=== PATIENT | female | born 1995 | race Caucasian/White ===

== ENCOUNTER 2016-06-04 11:55 | Emergency (ER) | payer MEDICAID ==
[~2016-06-04] VITALS: Ht 165.1 cm; Wt 99.8 kg
[~2016-06-04 11:55] MED LIST: CEPH-506 PO; CEPH500C PO; CLIN300C3 PO; DOXY1TAB3 PO; FLUO20CA25; HYDR-1231 PO; IBUP-1773 PO; IBUP-1780 PO; NITR-65 PO; PNV1TABL56 PO; PRD20T PO; PREN1TAB71 PO; PRM25T PO; PROM25TA14 PO; acid reducer
[2016-06-04] MEDS ORDERED: PNV91TAB3 PO (12:25)
--- NOTE | 2016-06-04 13:49 | ED Cough/URI ---
General Chief Complaint: Cough/Cold/Flu Symptoms Stated Complaint: SORE THROAT Nursing Triage Note: STATES HAD COUGH WITH SORE THROAT. HARD TIME BREATHING . STARTED YESTERDAY. MASK PLACED ON PT. IN TRIAGE ROOM. Source: patient Exam Limitations: no limitations History of Present Illness Time seen by provider: 13:38 Initial Comments Here with report of sore throat, runny nose and nasal congestion for the last 24 hours. Patient is 28 weeks . She has taken Tylenol and that has not helped. She doesn't know what else to do because of the . Denies nausea or vomiting. Timing/Duration: yesterday, getting worse Severity/Quality: mild, moderate, dry cough Prior Episodes/Possible Cause: occasional episodes Modifying Factors: Worse With Coughing, Improves With Rest Associated Symptoms: nasal congestion, nasal drainage, shortness of breath, sore throat Allergies and Home Medications Allergies Coded Allergies: NKANo Known Allergies (Verified Allergy, Unknown, 02/08/16) Home Medications Pnv95/Ferrous Fumarate/FA 1 Each Tablet 1 EACH PO DAILY (Reported) Constitutional: see HPINo chills, No fever EENTM: nose congestion see HPI throat pain Respiratory: see HPI coughNo short of breath Cardiovascular: no symptoms reported Gastrointestinal: no symptoms reported Expected Date of Delivery: Aug 31, 2016 Skin: no symptoms reported Past Hrkwjgj-Sxgsvb-Cunoqd Hx Patient Social History Alcohol Use: Denies Use Recreational Drug Use: No Smoking Status: Never a Smoker Recent Foreign Travel: No Contact w/Someone Who Travel: No Recent Infectious Disease Expo: No Recent Hopitalizations: No Immunizations Up To Date Tetanus Booster (TDap): Less than 5yrs PED Vaccines UTD: No Date of Influenza Vaccine: Mar 29, 2016 Seasonal Allergies Seasonal Allergies: No Surgeries HX Surgeries: Yes (DENTAL, TEAR DUCT) Surgeries: Gallbladder Respiratory Hx Respiratory Disorders: No Cardiovascular Hx Cardiac Disorders: No Neurological Hx Neurological Disorders: No Reproductive System : Yes Hx Reproductive Disorders: No (Implantable control) AMBULATORY ANALYST History: IUD Genitourinary Hx Genitourinary Disorders: No Gastrointestinal Hx Gastrointestinal Disorders: No Musculoskeletal Hx Musculoskeletal Disorders: Yes (BILATERAL KNEE STRAINS) Musculoskeletal Disorders: Chronic Back Pain Endocrine Hx Endocrine Disorders: No HEENT HX ENT Disorders: No Cancer Hx Cancer: No Psychosocial Hx Psychiatric Problems: Yes Behavioral Health Disorders: Anxiety, Depression Integumentary HX Skin/Integumentary Disorder: No Blood Transfusions Hx Blood Disorders: Yes (ANEMIA--NO TRANSFUSION) Adverse Reaction to a Blood Tr: No Reviewed Nursing Assessment Reviewed/Agree w Nursing PMH: Yes Family Medical History Significant Family History: No Pertinent Family Hx Family Medial History: Patient reports no known family medical history. Physical Exam Vital Signs Vital Sign - Last 12Hours 06/04/16 12:20 Temp 98.2 Pulse 124 Resp 18 B/P 113/68 Pulse Ox 93 O2 Delivery Room Air Capillary Refill : Less Than 3 Seconds General Appearance: WD/WN no apparent distress HEENT: PERRL/EOMI pharyngeal erythemaNo tonsillar exudate, other (moderate nasal congestion bilateral with clear rhinorrhea. No tonsillar exudate) Neck: full range of motion supple Respiratory: lungs clear normal breath sounds Cardiovascular: no murmur tachycardia Neurologic/Psychiatric: alert oriented x 3 Skin: normal color warm/dry Progress/Results/Core Measures Results/Orders Lab Results Laboratory Tests Test 06/04/16 14:05 Range/Units Group A Streptococcus Screen NEGATIVE NEGATIVE Micro Results Microbiology 06/04/16 Influenza Types A,B Antigen (CHELA) - Final, Complete My Orders Orders-TAPAN CLAROS MD Rapid Strep A Screen (06/04/16 13:45) Influenza A And B Antigens (06/04/16 13:45) Vital Signs/I&O Vital Sign - Last 12Hours 06/04/16 12:20 Temp 98.2 Pulse 124 Resp 18 B/P 113/68 Pulse Ox 93 O2 Delivery Room Air Blood Pressure Mean: 83 Progress Note : Progress Note Seen and evaluated. Rapid strep and influenza screen done. These are negative. Patient declined Decadron administration. Discharged home with return precautions. Patient verbalize understanding instructions and agreement with plan. Departure Impression Impression: Primary Impression: Upper respiratory infection Qualified Code: J06.9 - Acute upper respiratory infection, unspecified Disposition: 01 HOME, SELF-CARE Condition: Stable Departure-Patient Inst. Decision time for Depature: 13:57 Referrals: [facility] (PCP/Family) Primary Care Physician Patient Instructions: Viral Upper Respiratory Infection, Adult (DC) Add. Discharge Instructions: All discharge instructions reviewed with patient and/or family. Voiced understanding. You may take Tylenol 1000 mg every 6-8 hours as needed for pain or fever. Drink plenty of fluids. You may use Afrin nasal spray or the generic, 12 hour relief, 2 sprays to each nostril twice daily for 3 days only and then stop. Do not use more than 3 days. Return for worse pain, fever, vomiting, weakness, breathing problems or concerns as needed. Follow-up with your doctor on Tuesday for recheck and further evaluation as needed. TAPAN CLAROS MD Jun 04, 2016 13:49
[2016-06-04 15:23] VITALS: BP 113/68
== END 2016-06-04 15:23 | disposition home or self-care (01) ==
LOC: EDUNIT# 11:55 → ER 11:58
DX: J06.9 Acute upper respiratory infection, unspecified (principal)
CPT/HCPCS: 87430; 87804; 99284

== ENCOUNTER 2016-06-25 08:24 | Outpatient (CLI) | payer MEDICAID ==
[~2016-06-25] VITALS: Ht 167.6 cm; Wt 104.5 kg
[~2016-06-25 08:24] MED LIST changes: +PNV91TAB3 PO
[2016-06-25 08:35] VITALS: BP 110/62
[2016-06-25 09:40] LABS: KETONES,URINE NEGATIVE (NEGATIVE); LEUKOCYTE ESTERASE ,URINE 1+ (NEGATIVE); NITRITE,URINE NEGATIVE (NEGATIVE); PH,URINE 7 (5-9); PROTEIN,URINE 2+ (NEGATIVE); UROBILINOGEN,URINE 4 MG/DL (NORMAL)
[2016-06-25 09:56] LABS: SQUAMOUS EPITHELIAL CELL,UR RARE /HPF; WBC,URINE 0-2 /HPF
[2016-06-25 10:00] LABS: BILIRUBIN,URINE 1+ (NEGATIVE)
--- NOTE | 2016-06-28 12:51 | Physician Query-Final Dx ---
ALEXIS PINEDA 06/28/16 1251: Clinic Account Progress/Dx Physician Query: Please give diagnosis Date of Service Jun 25, 2016 at 08:24 LOVE WOOD MD 06/29/16 0752: Clinic Account Progress/Dx DIAGNOSIS: Diagnosis False labor ALEXIS PINEDA Jun 28, 2016 12:51 LOVE WOOD MD Jun 29, 2016 07:52
== END 2016-06-25 10:43 | disposition home or self-care (01) ==
LOC: DELPENDDIS → WSo 08:24 → LDRP 08:24 → WSo 10:43
PROVIDERS: ATTEND Obstetrics & Gynecology
DX: O47.03 False labor before 37 completed weeks of gestation, third trimester (principal); Z3A.30 30 weeks gestation of pregnancy
CPT/HCPCS: 81000; 87088; 99214

== ENCOUNTER 2016-07-16 15:42 | Outpatient (CLI) | payer MEDICAID, OTHER ==
[~2016-07-16] VITALS: Ht 167.6 cm; Wt 61.9 kg
[2016-07-16 16:00] VITALS: BP 122/59
[2016-07-16 16:30] VITALS: BP 110/58
--- NOTE | 2016-07-20 10:43 | Physician Query-Final Dx ---
ALEXIS PINEDA 07/20/16 1043: Clinic Account Progress/Dx Physician Query: Please give diagnosis Date of Service Jul 16, 2016 at 15:42 LOVE WOOD MD 07/20/16 1833: Clinic Account Progress/Dx DIAGNOSIS: Diagnosis false labor ALEXIS PINEDA Jul 20, 2016 10:43 LOVE WOOD MD Jul 20, 2016 18:33
== END 2016-07-16 17:10 | disposition home or self-care (01) ==
LOC: WSo 15:42 → LDRP 15:43 → WSo 17:10
PROVIDERS: ATTEND Obstetrics & Gynecology
DX: O47.03 False labor before 37 completed weeks of gestation, third trimester (principal); Z3A.33 33 weeks gestation of pregnancy
CPT/HCPCS: 99213

== ENCOUNTER → 2016-08-24 | Outpatient (CLI) | payer MEDICAID ==
[2016-08-24 15:33] LABS: PROTEIN/CREATININE RATIO 0.17
== END ==
LOC: LABNPT 15:08
PROVIDERS: ATTEND Obstetrics & Gynecology
DX: O28.8 Other abnormal findings on antenatal screening of mother (principal)
CPT/HCPCS: 82570; 84156

== ENCOUNTER 2016-08-30 06:59 | Inpatient (IN) | payer MEDICAID ==
[2016-08-30] VITALS (48 sets, daily range): BP systolic 105–139; BP diastolic 54–88
[~2016-08-30] VITALS: Ht 165.1 cm; Wt 109.1 kg
[2016-08-30] MEDS ORDERED: D5 LR IV SOLUTION 1,000 ML IV ONE (07:10)
[2016-08-30] MEDS ORDERED: D5 LR IV SOLUTION 1,000 ML IV SCH (07:42)
[2016-08-30] MEDS ORDERED: OXYTOCIN/NORMAL SALINE 500 ML IV SCH ×2 (07:42→07:44)
[2016-08-30] MEDS ORDERED: MEASLES,MUMPS,RUBELLA 1 EA INJ SC ONE (07:45)
[2016-08-30] MEDS ORDERED: TETANUS,DIPTH,PERTUSS P/F (BOOSTRIX) 0.5 ML VIAL IM ONE (07:45)
[2016-08-30] MEDS ORDERED: BENZOCAINE/MENTHOL (DERMOPLAST) 56 ML CAN TP PRN (07:45)
[2016-08-30 07:51] LABS: BASOPHILS % (AUTO) 0 % (0-10); EOSINOPHILS # (AUTO) 0.1 10^3/uL (0.0-0.3); EOSINOPHILS % (AUTO) 1 % (0-10); LYMPHOCYTES # (AUTO) 1.8 X 10^3 (1.0-4.0); LYMPHOCYTES % (AUTO) 22 % (12-44); MEAN CORPUSCULAR HEMOGLOBIN 29 PG (25-34); MEAN CORPUSCULAR HGB CONC 33 G/DL (32-36); MEAN CORPUSCULAR VOLUME 88 FL (80-99); MEAN PLATELET VOLUME 11.2 FL (7.4-10.4); MONOCYTES # (AUTO) 0.5 X 10^3 (0.0-1.0); MONOCYTES % (AUTO) 6 % (0-12); NEUTROPHILS # (AUTO) 5.9 X 10^3 (1.8-7.8); NEUTROPHILS % (AUTO) 71 % (42-75); PLATELET COUNT 240 10^3/uL (130-400); RED BLOOD COUNT 3.71 10^6/uL (4.35-5.85); RED CELL DISTRIBUTION WIDTH 13.2 % (10.0-14.5); WHITE BLOOD COUNT 8.3 10^3/uL (4.3-11.0)
[2016-08-30] MEDS ORDERED: SUFENTA 0.6MCG/ML BUPIVA 0.125 100 ML ONE (07:51)
--- NOTE | 2016-08-30 07:53 | OB Bishop Score ---
Patricia Score 10 LOVE WOOD MD Aug 30, 2016 7:53 am
--- NOTE | 2016-08-30 07:56 | History & Physical ---
History and Physical this patient is a 20-year-old A1 white female with an EDC of 66 17 x 6 week ultrasound. Her has been uncomplicated. GBS negative. She does have some contractions.she denies rupture membranes or bleeding. past medical social surgical obstetric histories are per the antepartum record HEENT exam is normal Neck is supple no lymphadenopathy no thyromegaly Abdomen is gravid soft nontender nondistended Streaming show clubbing or cyanosis. There is no Homans sign. Pelvic exam reveals a cervix 4 to 5 cm dilated 80 percent plus effaced bulging bag vertex presentation 0 to -1 station. Amniotomy is performed with release of clear fluid Assessment and plan term at one day shy of 40 weeks admitted for elective induction of labor. we anticipate a vaginal delivery. 39-6/7 week elective induction of labor Allergies and Home Medications Allergies Coded Allergies: NKANo Known Allergies (Verified Allergy, Unknown, 02/08/16) Home Medications Pnv95/Ferrous Fumarate/FA 1 Each Tablet, 1 EACH PO DAILY, (Reported) LOVE WOOD MD Aug 30, 2016 7:56 am
[2016-08-30] MEDS ORDERED: BUPIVACAINE 0.25% 30 ML (SENSORCAINE) VIAL ONE (08:02)
[2016-08-30] MEDS ORDERED: LACTATED RINGERS 1,000 ML IV ONE (08:37)
[2016-08-30] MEDS ORDERED: ONDANSETRON 4 MG/2 ML (SDV) Z0FRAN IV PRN (08:45)
[2016-08-30] MEDS ORDERED: NALOXONE 0.4 MG/ML 1 ML (NARCAN) VIAL IV PRN (08:45)
[2016-08-30] MEDS ORDERED: EPIDURAL (SUFENTA 0.6MCG/ML BUPIVA 0.125%) 100 ML BAG EPI SCH (08:45)
[2016-08-30] MEDS ORDERED: LIDOCAINE/EPI 1%-1:200,000 (XYLOCAINE) 30 ML VIAL ONE (09:44)
[2016-08-30] MEDS ORDERED: MINERAL OIL CONCENTRATE 99.9% 15 ML UDC ONE (09:44)
[2016-08-30] MEDS ORDERED: METHYLERGONOVINE 0.2 MG/ML (METHERGINE) AMP ONE (12:15)
[2016-08-30] MEDS ORDERED: METHYLERGONOVINE 0.2 MG/ML (METHERGINE) AMP IM ONE (12:20)
[2016-08-30] MEDS: KETOROLAC 30 MG/ML VIAL IV SCH ×2 (14:00→21:12)
[2016-08-30] MEDS: oxyCODONE/APAP 10/325MG (PERCOCET 10) TABLET PO PRN (18:51)
[2016-08-30] MEDS: DOCUSATE SODIUM 100 MG (COLACE) CAP PO SCH (21:12)
[2016-08-31] MEDS: KETOROLAC 30 MG/ML VIAL IV SCH (02:16)
[2016-08-31 02:17] VITALS: BP 99/69
--- NOTE | 2016-08-31 05:59 | OPERATIVE REPORT ---
DATE OF SERVICE: 08/30/2016 DELIVERY NOTE The patient delivered by term spontaneous vaginal delivery a viable male with Apgars of 9 and 9 at 1 and 5 minutes respectively. Weight of 8 pounds 15 ounces. Cord arterial blood gases pending. Was performed due to intermittent decels. The was bulb suctioned on delivery of the head and again on completion of delivery. The delivery was accomplished over an intact perineum under epidural analgesia. When the cord was pulseless, the cord was doubly clamped, the father cut the cord. The baby was passed to mom's abdomen. The placenta was delivered spontaneously [place]. It was normal with a three-vessel cord. Cord bloods were obtained including mentioned ABG from the umbilical artery from the placenta. The cervix, vagina, rectum and perineum were examined and found intact. The estimated blood loss was 300 mL, but that has escalated some by this point due to some persistent uterine anatomy. She did respond to IV Pitocin, massage and eventually to Methergine. The estimated blood loss would be more than 500 mL range. Sponge and needle counts were correct on completion of the delivery. The patient tolerated the delivery well and remained in the LDR for recovery. The baby remained with the mom. Job ID: [id number] DocumentID: [id number] Dictated Date: 08/30/2016 13:21:26 Setter Induction Heating Equipment Date: 08/31/2016 01:11:37 Dictated By: LOVE WOOD MD
[2016-08-31 06:27] VITALS: BP 105/75
--- NOTE | 2016-08-31 07:47 | Progress Note-Standard ---
Standard Progress Note Progress Notes/Assess & Plan Date Seen by Provider: Aug 31, 2016 Time Seen by Provider: 07:45 Progress/Assessment & Plan this patient is without complaint. She is ambulating, voiding, tolerating by mouth well, denies chest pain, denies shortness of breath, denies nausea vomiting, denies headache and patient has good pain control. Vital Signs Date Time Temp Pulse Resp B/P (MAP) Pulse Ox O2 Delivery O2 Flow Rate FiO2 08/31/16 06:27 97.3 65 18 105/75 97 08/31/16 02:17 97.4 68 18 99/69 97 08/30/16 22:42 97.0 71 18 105/74 95 08/30/16 18:47 97.4 90 18 117/79 98 08/30/16 14:30 69 18 128/69 08/30/16 14:15 69 18 126/58 08/30/16 14:00 74 18 120/67 08/30/16 13:45 74 18 120/64 08/30/16 13:30 81 18 118/63 08/30/16 13:15 82 18 131/64 08/30/16 13:00 97.3 72 18 128/68 08/30/16 12:39 69 18 115/69 08/30/16 12:30 79 18 108/54 08/30/16 12:19 80 18 119/59 08/30/16 12:14 80 18 118/58 08/30/16 12:09 82 18 115/57 08/30/16 12:02 91 18 115/68 08/30/16 11:46 82 18 115/68 08/30/16 11:32 85 18 125/73 08/30/16 11:15 86 18 112/75 08/30/16 11:00 76 18 116/75 08/30/16 10:45 96 18 121/71 08/30/16 10:30 83 18 121/65 08/30/16 10:15 89 18 113/73 08/30/16 10:00 97.6 84 18 118/70 08/30/16 09:56 100 18 129/72 08/30/16 09:51 89 18 126/74 08/30/16 09:46 100 18 127/68 08/30/16 09:41 85 18 123/77 08/30/16 09:36 94 18 124/67 08/30/16 09:31 101 18 120/66 08/30/16 09:26 110 18 117/76 08/30/16 09:21 94 18 117/76 08/30/16 09:16 89 18 123/69 08/30/16 09:11 93 18 126/67 08/30/16 09:06 122 18 129/70 08/30/16 09:01 81 18 126/72 99 08/30/16 08:58 108 18 118/72 99 08/30/16 08:55 108 18 118/72 99 08/30/16 08:52 96 18 130/67 98 08/30/16 08:49 129 18 139/88 98 08/30/16 08:46 129 18 127/72 99 08/30/16 08:43 94 20 123/61 99 08/30/16 08:40 92 20 125/68 97 08/30/16 08:36 98.0 91 20 132/74 97 08/30/16 08:25 91 18 130/79 97 08/30/16 08:20 85 18 131/72 98 08/30/16 08:15 88 18 131/80 98 08/30/16 08:04 82 18 130/78 I & O 08/31/16 07:00 Intake Total 3400 ml Balance 3400 ml Vital signs are stable. Patient is afebrile. Abdomen is soft nontender nondistended. The uterus is firm below the umbilicus and nontender. Show no clubbing or cyanosis. There is some pretibial pitting edema that is normal. Assessment and plan post day number 1 status post term spontaneous vaginal delivery doing well. Plan is for routine convalescence care with discharge home Final Diagnosis term spontaneous vaginal delivery LOVE WOOD MD Aug 31, 2016 7:47 am
[2016-08-31 07:48] VITALS: BP 121/84
[2016-08-31] MEDS ORDERED: IBUP-1780 PO (07:48)
[2016-08-31] MEDS ORDERED: DOCU100C37 PO (07:48)
[2016-08-31] MEDS ORDERED: OXYC-465 PO (07:48)
--- NOTE | 2016-08-31 07:49 | Discharge Instructions ---
Discharge Instructions Discharge Medications New, Converted or Re-Newed RX: RX on Chart Patient Instructions Patient Instructions: as directed Return to [facility] For: as directed Activity & Diet Discharge Diet: No Restrictions Activity as Tolerated: No Orders-Post D/C & Referrals Follow Up Appt: Call to make follow up appt. for patient in 4 weeks. Activity Per routine post vaginal delivery instructions. Please call in RX to patient pharmacy. Diet as tolerated Patient may shower or tub bathe as desired. LOVE WOOD MD Aug 31, 2016 7:49 am
[2016-08-31] MEDS: DOCUSATE SODIUM 100 MG (COLACE) CAP PO SCH ×3 (08:19→20:44)
[2016-08-31] MEDS: IBUPROFEN 800 MG (MOTRIN) TAB PO SCH ×3 (08:20→20:44)
--- NOTE | 2016-08-31 11:09 | Anesthesia-Regional Post-Op ---
Regional Patient Condition Mental Status: Alert, Oriented x3 Circulation: Same as Pre-Op Headache: Absent Sensation: Full Recovery Motor Block: Absent Post Op Complications Complications None Follow Up Care/Instructions Patient Instructions None needed. Anesthesia/Patient Condition Patient is doing well, no complaints, stable vital signs, no apparent adverse anesthesia problems. No complications reported per nursing. D/C home per [facility] Criteria: EDMAR Alejandro DO Aug 31, 2016 11:09
[2016-08-31 12:05] VITALS: BP 107/72
[2016-08-31 16:40] VITALS: BP 98/60
[2016-08-31 20:00] VITALS: BP 128/82
[2016-08-31] MEDS: oxyCODONE/APAP 10/325MG (PERCOCET 10) TABLET PO PRN (20:47)
[2016-09-01 00:50] VITALS: BP 101/68
[2016-09-01] MEDS: IBUPROFEN 800 MG (MOTRIN) TAB PO SCH ×2 (02:50→09:02)
--- NOTE | 2016-09-01 07:43 | Progress Note-Standard ---
Standard Progress Note Progress Notes/Assess & Plan Date Seen by Provider: Sep 01, 2016 Time Seen by Provider: 07:35 Progress/Assessment & Plan this patient is without complaint. She is ambulating, voiding, tolerating by mouth well, denies chest pain, denies shortness of breath, denies nausea vomiting, denies headache and patient has good pain control. Vital Signs Date Time Temp Pulse Resp B/P (MAP) Pulse Ox O2 Delivery O2 Flow Rate FiO2 08/31/16 06:27 97.3 65 18 105/75 97 08/31/16 02:17 97.4 68 18 99/69 97 08/30/16 22:42 97.0 71 18 105/74 95 08/30/16 18:47 97.4 90 18 117/79 98 08/30/16 14:30 69 18 128/69 08/30/16 14:15 69 18 126/58 08/30/16 14:00 74 18 120/67 08/30/16 13:45 74 18 120/64 08/30/16 13:30 81 18 118/63 08/30/16 13:15 82 18 131/64 08/30/16 13:00 97.3 72 18 128/68 08/30/16 12:39 69 18 115/69 08/30/16 12:30 79 18 108/54 08/30/16 12:19 80 18 119/59 08/30/16 12:14 80 18 118/58 08/30/16 12:09 82 18 115/57 08/30/16 12:02 91 18 115/68 08/30/16 11:46 82 18 115/68 08/30/16 11:32 85 18 125/73 08/30/16 11:15 86 18 112/75 08/30/16 11:00 76 18 116/75 08/30/16 10:45 96 18 121/71 08/30/16 10:30 83 18 121/65 08/30/16 10:15 89 18 113/73 08/30/16 10:00 97.6 84 18 118/70 08/30/16 09:56 100 18 129/72 08/30/16 09:51 89 18 126/74 08/30/16 09:46 100 18 127/68 08/30/16 09:41 85 18 123/77 08/30/16 09:36 94 18 124/67 08/30/16 09:31 101 18 120/66 08/30/16 09:26 110 18 117/76 08/30/16 09:21 94 18 117/76 08/30/16 09:16 89 18 123/69 08/30/16 09:11 93 18 126/67 08/30/16 09:06 122 18 129/70 08/30/16 09:01 81 18 126/72 99 08/30/16 08:58 108 18 118/72 99 08/30/16 08:55 108 18 118/72 99 08/30/16 08:52 96 18 130/67 98 08/30/16 08:49 129 18 139/88 98 08/30/16 08:46 129 18 127/72 99 08/30/16 08:43 94 20 123/61 99 08/30/16 08:40 92 20 125/68 97 08/30/16 08:36 98.0 91 20 132/74 97 08/30/16 08:25 91 18 130/79 97 08/30/16 08:20 85 18 131/72 98 08/30/16 08:15 88 18 131/80 98 08/30/16 08:04 82 18 130/78 I & O 08/31/16 07:00 Intake Total 3400 ml Balance 3400 ml Vital signs are stable. Patient is afebrile. Abdomen is soft nontender nondistended. The uterus is firm below the umbilicus and nontender. Show no clubbing or cyanosis. There is some pretibial pitting edema that is normal. Assessment and plan post day number 1 status post term spontaneous vaginal delivery doing well. Plan is for routine convalescence care with discharge home September 01, 2016 Patient is without complaint. She is ambulating, voiding, tolerating it well, denies chest pain, denies shortness of breath, denies nausea vomiting, denies headache, has good pain control and is requesting discharge home. Vital Signs Date Time Temp Pulse Resp B/P (MAP) Pulse Ox O2 Delivery O2 Flow Rate FiO2 09/01/16 00:50 97.9 73 18 101/68 08/31/16 20:00 96.9 82 20 128/82 98 08/31/16 16:40 97.3 83 14 98/60 99 08/31/16 12:05 97.4 83 16 107/72 97 08/31/16 07:48 96.7 71 14 121/84 95 Vital signs are stable. Patient is afebrile. Fundus is firm below the umbilicus and nontender. Extremities show no clubbing or cyanosis. There is no Homans sign. There is some pretibial pitting edema that is normal. Assessment and plan day number 2 status post term spontaneous vaginal delivery doing well. Plan is for discharge home with follow-up in clinic Final Diagnosis term spontaneous vaginal delivery LOVE WOOD MD Sep 01, 2016 7:43 am
[2016-09-01 08:45] VITALS: BP 106/75
[2016-09-01] MEDS ORDERED: TETANUS,DIPTH,PERTUSS P/F (BOOSTRIX) 0.5 ML VIAL IM ONE (09:01)
[2016-09-01] MEDS ORDERED: MEASLES,MUMPS,RUBELLA 1 EA INJ ONE (09:01)
[2016-09-01] MEDS: DOCUSATE SODIUM 100 MG (COLACE) CAP PO SCH (09:02)
[2016-09-01 11:45] VITALS: BP 106/75
== END 2016-09-01 11:45 | disposition home or self-care (01) | DRG 775 ==
LOC: LDRP 06:59
PROVIDERS: ADMIT Obstetrics & Gynecology; ATTEND Obstetrics & Gynecology
PROC: 10E0XZZ Delivery of Products of Conception, External Approach (ICD-10-PCS; principal; 2016-08-30)
PROC: 3E033GC Introduction of Other Therapeutic Substance into Peripheral Vein, Percutaneous Approach (ICD-10-PCS; 2016-08-30)
DX: O76 Abnormality in fetal heart rate and rhythm complicating labor and delivery (principal); O75.89 Other specified complications of labor and delivery; Z37.0 Single live birth; Z3A.39 39 weeks gestation of pregnancy; Z23 Encounter for immunization
CPT/HCPCS: 36415; 85025; 86850; 86900; 86901; 90707; 90715

== ENCOUNTER 2016-09-03 11:47 | Emergency (ER) | payer MEDICAID ==
[~2016-09-03] VITALS: Ht 165.1 cm; Wt 104.3 kg
[~2016-09-03 11:47] MED LIST changes: +DOCU100C37 PO; +OXYC-465 PO
--- NOTE | 2016-09-03 12:34 | ED General ---
General Chief Complaint: General Problems/Pain Stated Complaint: CHILLS BACK PAIN Nursing Triage Note: PT IS 4 DAYS POST OP, PT STATES EPIDURAL DID NOT WORK VERY WELL, PT STATES HAS DIZZINESS, CONTI CHILLS STIFF BACK THIS AM. PT STATES HAD HEMORRHAGE AFTER HAVING BABY. Nursing Sepsis Screen: No Definite Risk Source of Information: Patient, Family (mom) Exam Limitations: No Limitations History of Present Illness Time Seen by Provider: 12:28 Initial Comments Patient is a with one miscarriage and 3 living children. Delivered by vaginal 4 days ago on August 30. This morning she started having pain in her lower back as well as feeling hot and cool same time with chills and her mother says she said felt hot to the touch. She says she was getting up to go the bathroom and her legs felt very weak and wobbly after she went back to lay down her back went stiff and she had a hard time getting up and moving again until coming in to the ER. She took the oxycodone and ibuprofen pain meds that she was prescribed for pain which helped a little prior to coming to the ER. She denies nausea or rash. She says her lochia is heavy initially after delivery but is now light the past 2 days and intermittent. She states that the was uneventful with the delivery was a problem with her epidural and she equates this to causing her to have a hemorrhage. She states that Dr. Chilel performed a manual extraction and pulse and clots out of her uterus. Has not needed a blood patch. She has a history of migraines and today she has a headache on the left side that is throbbing. Allergies and Home Medications Allergies Coded Allergies: MATTIEANo Known Allergies (Verified Allergy, Unknown, 02/08/16) Home Medications Cyclobenzaprine HCl 10 Mg Tablet, 10 MG PO Q8H PRN for BACK PAIN, #14 Ref 0 Prescribed by: SU FARRAR on 09/03/16 1343 Docusate Sodium 100 Mg Capsule, 100 MG PO BID, #60 Prescribed by: LOVE SANDERS on 08/31/16 0748 Ibuprofen 800 Mg Tablet, 800 MG PO Q6H, #60 Prescribed by: LOVE SANDERS on 08/31/16 0748 Oxycodone HCl/Acetaminophen 1 Each Tablet, 1-2 TAB PO Q6H PRN for PAIN-MILD TO MODERATE, #60 Prescribed by: LOVE SANDERS on 08/31/16 0748 Pnv95/Ferrous Fumarate/FA 1 Each Tablet, 1 EACH PO DAILY, (Reported) Polyethylene Glycol 3350 17 Gm Powd.pack, 17 GM PO BID PRN for CONSTIPATION-1ST LINE for 10 Days, #1 Ref 0 Prescribed by: SU FARRAR on 09/03/16 1343 Sulfamethoxazole/Trimethoprim 1 Each Tablet, 1 EACH PO BID for 7 Days, #14 Ref 0 Prescribed by: SU FARRAR on 09/03/16 1343 Constitutional: chills, No diaphoresis, dizziness, malaise, weakness EENTM: No blurred vision, No double vision, No nose congestion, No nose pain Respiratory: No cough, No short of breath Cardiovascular: No chest pain, No edema, No palpitations Gastrointestinal: abdominal pain (Suprapubic is tender ), No constipation, No diarrhea, No jaundice, No loss of appetite, No nausea, No vomiting Genitourinary: No dysuria, No frequency Musculoskeletal: No joint pain, No muscle pain, muscle stiffness Skin: other (bruising of her lower abdomen from delivery) Psychiatric/Neurological: Headache Past Ptjdcho-Cisfrp-Wultlr Hx Patient Social History Alcohol Use: Denies Use Recreational Drug Use: No Smoking Status: Never a Smoker Recent Foreign Travel: No Contact w/Someone Who Travel: No Recent Infectious Disease Expo: No Recent Hopitalizations: No Immunizations Up To Date Tetanus Booster (TDap): Less than 5yrs PED Vaccines UTD: No Date of Influenza Vaccine: Mar 29, 2016 Seasonal Allergies Seasonal Allergies: Yes Surgeries HX Surgeries: Yes (DENTAL, TEAR DUCT) Surgeries: Gallbladder Respiratory Hx Respiratory Disorders: No Cardiovascular Hx Cardiac Disorders: No Neurological Hx Neurological Disorders: No Reproductive System Hx Reproductive Disorders: No (Implantable control) Sexually Transmitted Disease: Yes (Hx of chlamydia ) HIV/AIDS: No P[employer]ED P[employer] History: IUD Genitourinary Hx Genitourinary Disorders: No Gastrointestinal Hx Gastrointestinal Disorders: No Musculoskeletal Hx Musculoskeletal Disorders: Yes (BILATERAL KNEE STRAINS) Musculoskeletal Disorders: Chronic Back Pain Endocrine Hx Endocrine Disorders: No HEENT HX ENT Disorders: No Cancer Hx Cancer: No Psychosocial Hx Psychiatric Problems: Yes Behavioral Health Disorders: Anxiety, Depression Integumentary HX Skin/Integumentary Disorder: No Blood Transfusions Hx Blood Disorders: Yes (ANEMIA--NO TRANSFUSION) Adverse Reaction to a Blood Tr: No Family Medical History Significant Family History: No Pertinent Family Hx Family Medial History: Asthma 19 MOTHER FH: sleep apnea 19 FATHER Hypertension 19 FATHER Physical Exam-Suspected Sepsis Physical Exam Vital Signs Vital Sign - Last 12Hours 09/03/16 11:55 Temp 98.2 Pulse 119 Resp 18 B/P (MAP) 141/93 Pulse Ox 97 Capillary Refill : Less Than 3 Seconds Blood Pressure Mean: 109 General Appearance: WD/WN, Mild Distress Eyes: Bilateral Eye EOMI, Bilateral Eye Normal Inspection HEENT: Pharynx Normal, No Tonsillar Enlargement Neck: Full Range of Motion, Normal Inspection, Non Tender, Supple Respiratory: Lungs Clear, Normal Breath Sounds, No Accessory Muscle Use, No Respiratory Distress Cardiovascular: Regular Rate, Rhythm, No Edema Gastrointestinal: No Mass, No Rebound, No Splenomegaly, Tenderness (suprapubic) , Other (hypoactive BS; Uterus palpable at the level of the Pubic bone) Back: Normal Inspection, No CVA Tenderness, No Vertebral Tenderness, Other (no erythema or swelling from site of epidural insertion. ) Extremity: Normal Capillary Refill, Non Tender, No Calf Tenderness, No Pedal Edema Neurologic/Psychiatric: Alert, Oriented x3, No Motor/Sensory Deficits, Other ( DTRs Dominick Patellar intact) Skin: normal color, warm/dry Progress/Results/Core Measures Suspected Sepsis Recent Fever Within 48 Hours: No Infection Criteria Present: None New/Unexplained Altered Menta: No Sepsis Screen: No Definite Risk Sepsis Diagnosis: SIRS Temperature:98.2 Pulse: 119 Respiratory Rate: 18 Laboratory Tests 09/03/16 12:05: White Blood Count 8.2 Blood Pressure 141 /93 Mean: 109 Laboratory Tests 09/03/16 12:05: Creatinine 0.68, Platelet Count 242, Total Bilirubin 0.4 Results/Orders Lab Results Laboratory Tests Test 09/03/16 12:05 09/03/16 13:05 Range/Units White Blood Count 8.2 4.3-11.0 10^3/uL Red Blood Count 3.28 L 4.35-5.85 10^6/uL Hemoglobin 9.5 L 11.5-16.0 G/DL Hematocrit 29 L 35-52 % Mean Corpuscular Volume 89 80-99 FL Mean Corpuscular Hemoglobin 29 25-34 PG Mean Corpuscular Hemoglobin Concent 32 32-36 G/DL Red Cell Distribution Width 12.8 10.0-14.5 % Platelet Count 242 130-400 10^3/uL Mean Platelet Volume 10.2 7.4-10.4 FL Neutrophils (%) (Auto) 86 H 42-75 % Lymphocytes (%) (Auto) 7 L 12-44 % Monocytes (%) (Auto) 6 0-12 % Eosinophils (%) (Auto) 2 0-10 % Basophils (%) (Auto) 0 0-10 % Neutrophils # (Auto) 7.0 1.8-7.8 X 10^3 Lymphocytes # (Auto) 0.5 L 1.0-4.0 X 10^3 Monocytes # (Auto) 0.5 0.0-1.0 X 10^3 Eosinophils # (Auto) 0.2 0.0-0.3 10^3/uL Basophils # (Auto) 0.0 0.0-0.1 10^3/uL Neutrophils % (Manual) 80 % Lymphocytes % (Manual) 11 % Monocytes % (Manual) 3 % Eosinophils % (Manual) 2 % Basophils % (Manual) 0 % Band Neutrophils 4 % Blood Morphology Comment NORMAL Sodium Level 138 135-145 MMOL/L Potassium Level 3.5 L 3.6-5.0 MMOL/L Chloride Level 105 98-107 MMOL/L Carbon Dioxide Level 21 21-32 MMOL/L Anion Gap 12 5-14 MMOL/L Blood Urea Nitrogen 5 L 7-18 MG/DL Creatinine 0.68 0.60-1.30 MG/DL Estimat Glomerular Filtration Rate > 60 BUN/Creatinine Ratio 7 Glucose Level 113 H 70-105 MG/DL Calcium Level 8.7 8.5-10.1 MG/DL Total Bilirubin 0.4 0.1-1.0 MG/DL Aspartate Amino Transf (AST/SGOT) 19 5-34 U/L Alanine Aminotransferase (ALT/SGPT) 22 0-55 U/L Alkaline Phosphatase 154 H 40-136 U/L Total Protein 6.0 L 6.4-8.2 G/DL Albumin 3.0 L 3.2-4.5 G/DL Urine Color RED H Urine Clarity BLOODY H Urine pH 6.5 5-9 Urine Specific [place] 1.015 L 1.016-1.022 Urine Protein 3+ H NEGATIVE Urine Glucose (UA) NEGATIVE NEGATIVE Urine Ketones NEGATIVE NEGATIVE Urine Nitrite NEGATIVE NEGATIVE Urine Bilirubin NEGATIVE NEGATIVE Urine Urobilinogen 1 NORMAL MG/DL Urine Leukocyte Esterase 3+ H NEGATIVE Urine RBC (Auto) 5+ H NEGATIVE Urine RBC TNTC H /HPF Urine WBC TNTC H /HPF Urine Squamous Epithelial Cells 10-25 H /HPF Urine Crystals NONE /LPF Urine Bacteria MODERATE H /HPF Urine Casts NONE /LPF Urine Mucus NEGATIVE /LPF Urine Culture Indicated YES My Orders Orders - SU FARRAR Cbc With Automated Diff (09/03/16 12:34) Comprehensive Metabolic Panel (09/03/16 12:34) Ua Culture If Indicated (09/03/16 12:34) Lactic Acid Analyzer (09/03/16 12:37) Blood Culture (09/03/16 12:37) Manual Differential (09/03/16 12:05) Urine Culture (09/03/16 13:05) Vital Signs/I&O Vital Sign - Last 12Hours 09/03/16 11:55 Temp 98.2 Pulse 119 Resp 18 B/P (MAP) 141/93 Pulse Ox 97 Capillary Refill : Less Than 3 Seconds Blood Pressure Mean: 109 Progress Note #1: Time: 12:46 Progress Note Patient reports with a subjective history of fever back tenderness and malaise and weakness 4 days after a vaginal delivery for which she had to have annual extraction of blood clots secondary to hemorrhage. Her hemoglobin reviewed at the time of her discharge was 10.8. She denies any other constitutional symptoms however his could be related to however unlikely her epidural site or with her hypoactive bowel sounds could also be related to constipation and her use of oxycodone. We'll draw a lactate and basic labs and go from there Progress Note #2: Time: 14:08 Progress Note Hemoglobin only dropped about point and this can be explained by her hemorrhage and heavy lochia for the first 2-3 days. Urinalysis is questionable for UTI so sent for culture as well as blood cultures but allow her to go home under close supervision of her parents with antibiotics and symptomatically treatment. She should follow-up next with her primary care/OB. She is given strict return to care instructions. Departure Impression Impression: Primary Impression: UTI (urinary tract infection) Qualified Codes: N30.01 - Acute cystitis with hematuria Additional Impression: Back stiffness Disposition: HOME, SELF-CARE Condition: Improved Departure-Patient Inst. Decision time for Depature: 13:39 Referrals: [facility] (PCP/Family) Primary Care Physician Patient Instructions: Urinary Tract Infection, Adult (DC) Add. Discharge Instructions: You have been started on a 5 day course of bactrim to be taken twice daily with something to eat to treat a possible urinary tract infection. Follow-up with Dr. Chilel next week and you can call up after Tuesday to get the culture results. Your back stiffness will best be treated at this point with heat and Flexeril every 8 hours as needed for stiffness as well as get some rest. If careful using the Flexeril along with opiates as this may cause you to be very drowsy. While you're on these medicines you should consider pumping and dumping your breastmilk. If you have new symptoms such as high fevers, nausea or vomiting, inability to tolerate the medicines or worsening of your current symptoms you should return to the ER or follow up with your primary care physician. All discharge instructions reviewed with patient and/or family. Voiced understanding. Scripts Polyethylene Glycol 3350 (Miralax) 17 Gm Powd.pack 17 GM PO BID Y for CONSTIPATION-1ST LINE for 10 Days, #1 EACH 0 Refills Prov: SU FARRAR 09/03/16 Cyclobenzaprine HCl (Cyclobenzaprine HCl) 10 Mg Tablet 10 MG PO Q8H Y for BACK PAIN, #14 TAB 0 Refills Prov: SU FARRAR 09/03/16 Sulfamethoxazole/Trimethoprim (Bactrim Ds Tablet) 1 Each Tablet 1 EACH PO BID for 7 Days, #14 TAB 0 Refills Prov: SU FARRRA 09/03/16 Copy Copies To 1: LOVE CHILEL MD Copies To 2: MARGI EDWARD TITUS J Sep 03, 2016 12:34
[2016-09-03 12:40] LABS: BASOPHILS % (AUTO) 0 % (0-10); EOSINOPHILS # (AUTO) 0.2 10^3/uL (0.0-0.3); EOSINOPHILS % (AUTO) 2 % (0-10); LYMPHOCYTES # (AUTO) 0.5 X 10^3 (1.0-4.0); LYMPHOCYTES % (AUTO) 7 % (12-44); MEAN CORPUSCULAR HEMOGLOBIN 29 PG (25-34); MEAN CORPUSCULAR HGB CONC 32 G/DL (32-36); MEAN CORPUSCULAR VOLUME 89 FL (80-99); MEAN PLATELET VOLUME 10.2 FL (7.4-10.4); MONOCYTES # (AUTO) 0.5 X 10^3 (0.0-1.0); MONOCYTES % (AUTO) 6 % (0-12); NEUTROPHILS % (AUTO) 86 % (42-75); PLATELET COUNT 242 10^3/uL (130-400); RED BLOOD COUNT 3.28 10^6/uL (4.35-5.85); RED CELL DISTRIBUTION WIDTH 12.8 % (10.0-14.5); WHITE BLOOD COUNT 8.2 10^3/uL (4.3-11.0)
[2016-09-03 12:55] LABS: ALANINE AMINOTRANSFERASE 22 U/L (0-55); ANION GAP 12 MMOL/L (5-14); ASPARTATE AMINO TRANSFERASE 19 U/L (5-34); BILIRUBIN,TOTAL 0.4 MG/DL (0.1-1.0); BLOOD UREA NITROGEN 5 MG/DL (7-18); BUN/CREATININE RATIO 7; CALCIUM 8.7 MG/DL (8.5-10.1); CARBON DIOXIDE 21 MMOL/L (21-32); CHLORIDE 105 MMOL/L (98-107); CREATININE SERUM 0.68 MG/DL (0.60-1.30); GFR ESTIMATED > 60; GLUCOSE 113 MG/DL (70-105); POTASSIUM 3.5 MMOL/L (3.6-5.0); SODIUM 138 MMOL/L (135-145)
[2016-09-03 13:04] LABS: BAND NEUTROPHILS 4 %; BASOPHILS % (MANUAL) 0 %; EOSINOPHILS % (MANUAL) 2 %; LYMPHOCYTES % (MANUAL) 11 %; NEUTROPHILS % (MANUAL) 80 %
[2016-09-03 13:17] LABS: BILIRUBIN,URINE NEGATIVE (NEGATIVE); KETONES,URINE NEGATIVE (NEGATIVE); LEUKOCYTE ESTERASE ,URINE 3+ (NEGATIVE); NITRITE,URINE NEGATIVE (NEGATIVE); PH,URINE 6.5 (5-9); PROTEIN,URINE 3+ (NEGATIVE); UROBILINOGEN,URINE 1 MG/DL (NORMAL)
[2016-09-03 13:25] LABS: WBC,URINE TNTC /HPF
[2016-09-03] MEDS ORDERED: SULF1TAB35 PO (13:43)
[2016-09-03] MEDS ORDERED: CYCL10TA9 PO (13:43)
[2016-09-03] MEDS ORDERED: POLY17PO6 PO (13:43)
[2016-09-03 14:11] VITALS: BP 136/86
== END 2016-09-03 14:10 | disposition home or self-care (01) ==
LOC: EDUNIT# 11:47 → ER 11:51
DX: O86.20 Urinary tract infection following delivery, unspecified (principal); O90.89 Other complications of the puerperium, not elsewhere classified; M53.80 Other specified dorsopathies, site unspecified; R68.83 Chills (without fever)
CPT/HCPCS: 36415; 80053; 81000; 83605; 85007; 85027; 87040; 87088; 99284

== ENCOUNTER 2017-04-07 16:02 | Emergency (ER) | payer MEDICAID, OTHER ==
[~2017-04-07 16:02] MED LIST changes: +CYCL10TA9 PO; +POLY17PO6 PO; +SULF1TAB35 PO
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
== END 2017-04-07 18:16 | disposition left against medical advice (07) ==
LOC: EDUNIT# 16:02 → ER 16:04
DX: R50.9 Fever, unspecified (principal)

== ENCOUNTER 2017-06-21 19:06 | Emergency (ER) | payer MEDICAID ==
[~2017-06-21] VITALS: Ht 170.2 cm; Wt 100.0 kg
--- NOTE | 2017-06-21 20:42 | ED General ---
General Chief Complaint: General Problems/Pain Stated Complaint: POSS PREG, OFF AND ON PERIODS Nursing Triage Note: pt reports she has had irregular periods for the last several months. she states she took a home test a couple of weeks ago and it was positive. she also states she has been having intermittent abd cramping. she denies vaginal bleeding at this time, or any urinary symptoms. Nursing Sepsis Screen: No Definite Risk Source of Information: Patient Exam Limitations: No Limitations History of Present Illness Date Seen by Provider: Jun 21, 2017 Time Seen by Provider: 20:40 Initial Comments To ER with c/o irregular periods for several months. C/o suprapubic abdominal cramping for a few weeks. Took a home pregnanacy test and it was positive. No vaginal bleeding for a few weeks. Timing/Duration: Intermittent Severity: Moderate Allergies and Home Medications Allergies Coded Allergies: MATTIEANo Known Allergies (Verified Allergy, Unknown, 02/08/16) Home Medications Cephalexin 500 Mg Capsule, 500 MG PO BID Prescribed by: CAMILA SALGADO on 06/21/17 2220 Cyclobenzaprine HCl 10 Mg Tablet, 10 MG PO Q8H PRN for BACK PAIN Prescribed by: SU FARRAR on 09/03/16 1343 Docusate Sodium 100 Mg Capsule, 100 MG PO BID Prescribed by: LOVE SANDERS on 08/31/16 0748 Ibuprofen 800 Mg Tablet, 800 MG PO Q6H Prescribed by: LOVE SANDERS on 08/31/16 0748 Oxycodone HCl/Acetaminophen 1 Each Tablet, 1-2 TAB PO Q6H PRN for PAIN-MILD TO MODERATE Prescribed by: LOVE SANDERS on 08/31/16 0748 Pnv95/Ferrous Fumarate/FA 1 Each Tablet, 1 EACH PO DAILY, (Reported) Polyethylene Glycol 3350 17 Gm Powd.pack, 17 GM PO BID PRN for CONSTIPATION-1ST LINE Prescribed by: SU FARRAR on 09/03/16 1343 Sulfamethoxazole/Trimethoprim 1 Each Tablet, 1 EACH PO BID Prescribed by: SU FARRAR on 09/03/16 1343 Patient Home Medication List Home Medication List Reviewed: Yes Constitutional: see HPI EENTM: see HPI Respiratory: no symptoms reported Cardiovascular: no symptoms reported Genitourinary: no symptoms reported Musculoskeletal: no symptoms reported Skin: no symptoms reported Psychiatric/Neurological: No Symptoms Reported Past [id number]-[id number]-Mqmfxn Hx Patient Social History Alcohol Use: Denies Use Recreational Drug Use: No Smoking Status: Never a Smoker 2nd Hand Smoke Exposure: No Recent Foreign Travel: No Contact w/Someone Who Travel: No Recent Infectious Disease Expo: No Recent Hopitalizations: No Immunizations Up To Date Tetanus Booster (TDap): Less than 5yrs PED Vaccines UTD: No Date of Influenza Vaccine: Mar 29, 2016 Seasonal Allergies Seasonal Allergies: Yes Surgeries History of Surgeries: Yes Surgeries: Gallbladder Respiratory History of Respiratory Disorde: No Cardiovascular History of Cardiac Disorders: No Neurological History of Neurological Disord: No Reproductive System Hx Reproductive Disorders: No (Implantable control) Sexually Transmitted Disease: Yes (Hx of chlamydia ) HIV/AIDS: No CARBONATOR History: IUD Genitourinary History of Genitourinary Disor: No Gastrointestinal History of Gastrointestinal Di: No Musculoskeletal History of Musculoskeletal Dis: No Musculoskeletal Disorders: Chronic Back Pain Endocrine History of Endocrine Disorders: No HEENT History of HEENT Disorders: No Cancer History of Cancer: No Psychosocial History of Psychiatric Problem: Yes Behavioral Health Disorders: Anxiety, Depression Integumentary History of Skin or Integumenta: No Blood Transfusions History of Blood Disorders: Yes (anemia ) Adverse Reaction to a Blood Tr: No Family Medical History Significant Family History: No Pertinent Family Hx Family Medial History: Asthma 19 MOTHER FH: sleep apnea 19 FATHER Hypertension 19 FATHER Physical Exam Vital Signs Vital Signs - First Documented 06/21/17 19:20 Temp 97.5 Pulse 74 Resp 16 B/P (MAP) 122/84 (97) Pulse Ox 99 Capillary Refill : Less Than 3 Seconds General Appearance: No Apparent Distress, WD/WN Eyes: Bilateral Eye Normal Inspection, Bilateral Eye PERRL, Bilateral Eye EOMI HEENT: PERRL/EOMI, TMs Normal Neck: Full Range of Motion, Normal Inspection Respiratory: No Accessory Muscle Use, No Respiratory Distress Cardiovascular: Regular Rate, Rhythm, Normal Peripheral Pulses Gastrointestinal: Normal Bowel Sounds, Non Tender, Soft Extremity: Normal Capillary Refill, Normal Inspection Neurologic/Psychiatric: Alert, Oriented x3, No Motor/Sensory Deficits Skin: Normal Color, Warm/Dry Progress/Results/Core Measures Suspected Sepsis Recent Fever Within 48 Hours: No Infection Criteria Present: None New/Unexplained Altered Menta: No Sepsis Screen: No Definite Risk Sepsis Diagnosis: SIRS Temperature:97.5 Pulse: 74 Respiratory Rate: 16 Blood Pressure 122 /84 Mean: 97 Results/Orders Lab Results Laboratory Tests Test 06/21/17 19:35 06/21/17 21:00 Range/Units Human Chorionic Gonadotropin, Quant [id number] H <5 MIU/ML Urine Color YELLOW Urine Clarity VERY CLOUDY H Urine pH 6 5-9 Urine Specific [place] 1.020 1.016-1.022 Urine Protein 2+ H NEGATIVE Urine Glucose (UA) NEGATIVE NEGATIVE Urine Ketones NEGATIVE NEGATIVE Urine Nitrite NEGATIVE NEGATIVE Urine Bilirubin 1+ H NEGATIVE Urine Urobilinogen 4 H NORMAL MG/DL Urine Leukocyte Esterase 3+ H NEGATIVE Urine RBC (Auto) 1+ H NEGATIVE Urine RBC 0-2 /HPF Urine WBC 10-25 H /HPF Urine Squamous Epithelial Cells >50 H /HPF Urine Crystals NONE /LPF Urine Bacteria LARGE H /HPF Urine Casts NONE /LPF Urine Mucus LARGE H /LPF Urine Culture Indicated YES My Orders Orders - CAMILA SALGADO NEUROPHYSIOLOGY TECH Hcg,Quantitative (06/21/17 19:24) Ua Culture If Indicated (06/21/17 20:39) Urine Culture (06/21/17 21:00) Cephalexin Capsule (Keflex Capsule) (06/21/17 21:45) Us Ob Single Fetus<14 [id number] (06/21/17 20:39) Medications Given in ED Current Medications Medications Dose Ordered Sig/Chucky Route Start Time Stop Time Status Last Admin Dose Admin Cephalexin HCl 250 mg ONCE ONCE PO 06/21/17 21:45 06/21/17 21:46 DC 06/21/17 22:30 250 MG Vital Signs/I&O Vital Sign - Last 12Hours 06/21/17 19:20 Temp 97.5 Pulse 74 Resp 16 B/P (MAP) 122/84 (97) Pulse Ox 99 Capillary Refill : Less Than 3 Seconds Blood Pressure Mean: 97 Departure Impression Impression: Primary Impression: Intrauterine Additional Impression: UTI (urinary tract infection) Disposition: 01 HOME, SELF-CARE Condition: Stable/Unchanged Departure-Patient Inst. Decision time for Depature: 22:20 Referrals: [facility] (PCP/Family) Primary Care Physician Patient Instructions: How to Plan and Prepare for a Healthy , Urinary Tract Infection, Adult (DC) Add. Discharge Instructions: Call an [employer] KNITTER HELPER tomorrow to become established and to follow you throughout the rest of your . Take medications as directed and drink plenty of clear liquids. Return back to the emergency room for any concerns as needed All discharge instructions reviewed with patient and/or family. Voiced understanding. Scripts Cephalexin (Keflex) 500 Mg Capsule 500 MG PO BID for 7 Days, #14 CAP Prov: CAMILA SALGADO APRN 06/21/17 CAMILA SALGADO APRN Jun 21, 2017 20:42
[2017-06-21 21:13] LABS: CLARITY,URINE VERY CLOUDY; COLOR,URINE YELLOW; GLUCOSE, URINE (UA) NEGATIVE (NEGATIVE); KETONES,URINE NEGATIVE (NEGATIVE); LEUKOCYTE ESTERASE ,URINE 3+ (NEGATIVE); NITRITE,URINE NEGATIVE (NEGATIVE); PH,URINE 6 (5-9); PROTEIN,URINE 2+ (NEGATIVE); UROBILINOGEN,URINE 4 MG/DL (NORMAL)
[2017-06-21 21:22] LABS: BILIRUBIN,URINE 1+ (NEGATIVE)
[2017-06-21 21:25] LABS: BACTERIA,URINE LARGE /HPF; RBC,URINE 0-2 /HPF; SQUAMOUS EPITHELIAL CELL,UR >50 /HPF
[2017-06-21] MEDS ORDERED: CEPHALEXIN 250 MG (KEFLEX) CAP PO ONE (21:45)
[2017-06-21] MEDS ORDERED: CEPH-507 PO (22:20)
[2017-06-21 22:25] VITALS: BP 122/84
--- NOTE | 2017-06-22 08:51 | Diagnostic Imaging Report ---
PROCEDURE: US OB SINGLE FETUS <14 WKS. TECHNIQUE: Multiple real-time grayscale images were obtained over the gravid uterus in various projections. INDICATION: Pelvic cramping. FINDINGS: There is an intrauterine gestational sac containing a pole. The crown-rump length measurement is 6.9 cm consistent with 13 weeks 2 days gestation. heart rate was recorded at 179 beats per minute. Placenta is developing anteriorly. No perigestational sac hemorrhage is identified. The ovaries were not visualized. IMPRESSION: Single live IUP 13 weeks 2 days gestational age with an estimated date of confinement sonographically of 12/25/2017. No complicating features are detected. Dictated by: Dictated on workstation # [id number]
== END 2017-06-21 22:25 | disposition home or self-care (01) ==
LOC: EDUNIT# 19:06 → ER 19:07
DX: O23.40 Unspecified infection of urinary tract in pregnancy, unspecified trimester (principal); O99.341 Other mental disorders complicating pregnancy, first trimester; F41.9 Anxiety disorder, unspecified; F32.9 Major depressive disorder, single episode, unspecified; Z88.1 Allergy status to other antibiotic agents; Z86.19 Personal history of other infectious and parasitic diseases; Z97.5 Presence of (intrauterine) contraceptive device; Z3A.13 13 weeks gestation of pregnancy
CPT/HCPCS: 36415; 76801; 81000; 84702; 87088

== ENCOUNTER 2017-10-17 13:50 | Outpatient (CLI) | payer SELFPAY ==
[~2017-10-17] VITALS: Ht 168.9 cm; Wt 105.3 kg
[2017-10-17 13:30] VITALS: BP 119/68
[~2017-10-17 13:50] MED LIST changes: +CEPH-507 PO
[2017-10-17] MEDS ORDERED: PNV11TAB5 PO (14:19)
[2017-10-17 14:45] VITALS: BP 119/68
--- NOTE | 2017-10-18 15:08 | Physician Query-Final Dx ---
ALEXIS PINEDA 10/18/17 1508: Clinic Account Progress/Dx Physician Query: Please give diagnosis Date of Service Oct 17, 2017 at 13:50 LOVE WOOD MD 10/19/17 0748: Clinic Account Progress/Dx DIAGNOSIS: Diagnosis false labor ALEXIS PINEDA Oct 18, 2017 15:08 LOVE WOOD MD Oct 19, 2017 07:48
== END 2017-10-17 14:45 | disposition home or self-care (01) ==
LOC: WSo 13:50 → LDRP 13:51 → WSo 14:45
PROVIDERS: ATTEND Obstetrics & Gynecology
DX: O47.03 False labor before 37 completed weeks of gestation, third trimester (principal); Z3A.30 30 weeks gestation of pregnancy
CPT/HCPCS: 99213

== ENCOUNTER 2017-12-06 12:35 | Inpatient (IN) | payer MEDICAID ==
[2017-12-06] VITALS (27 sets, daily range): BP systolic 96–121; BP diastolic 56–76
[~2017-12-06] VITALS: Ht 168.9 cm; Wt 105.3 kg
[~2017-12-06 12:35] MED LIST changes: +PNV11TAB5 PO
[2017-12-06] MEDS ORDERED: LACTATED RINGERS 1,000 ML IV ONE (13:30)
[2017-12-06] MEDS ORDERED: LOPERAMIDE 2 MG (IMODIUM) CAP PO ONE (13:30)
[2017-12-06] MEDS ORDERED: ONDANSETRON 4 MG/2 ML (SDV) Z0FRAN IVP NR (15:00)
[2017-12-06] MEDS ORDERED: AMPICILLIN FOR IV USE 2,000 MG in NS (IVPB) 50 ML IV NR (15:00)
[2017-12-06 15:24] LABS: BASOPHILS % (AUTO) 0 % (0-10); EOSINOPHILS % (AUTO) 0 % (0-10); HEMATOCRIT 33 % (35-52); HEMOGLOBIN 10.7 G/DL (11.5-16.0); LYMPHOCYTES # (AUTO) 0.7 X 10^3 (1.0-4.0); LYMPHOCYTES % (AUTO) 9 % (12-44); MEAN CORPUSCULAR HEMOGLOBIN 29 PG (25-34); MEAN CORPUSCULAR HGB CONC 33 G/DL (32-36); MEAN CORPUSCULAR VOLUME 87 FL (80-99); MEAN PLATELET VOLUME 11.3 FL (7.4-10.4); MONOCYTES # (AUTO) 0.4 X 10^3 (0.0-1.0); MONOCYTES % (AUTO) 5 % (0-12); NEUTROPHILS # (AUTO) 6.6 X 10^3 (1.8-7.8); NEUTROPHILS % (AUTO) 85 % (42-75); PLATELET COUNT 313 10^3/uL (130-400); RED BLOOD COUNT 3.75 10^6/uL (4.35-5.85); RED CELL DISTRIBUTION WIDTH 13.5 % (10.0-14.5); WHITE BLOOD COUNT 7.7 10^3/uL (4.3-11.0)
[2017-12-06] MEDS ORDERED: BUTORPHANOL INJ 2 MG/ML (STADOL) VIAL IV ONE (16:15)
[2017-12-06] MEDS ORDERED: D5 LR IV SOLUTION 1,000 ML IV SCH (16:15)
[2017-12-06] MEDS ORDERED: BUTORPHANOL INJ 2 MG/ML (STADOL) VIAL ONE (16:16)
[2017-12-06] MEDS: LACTATED RINGERS 1,000 ML IV SCH ×2 (17:34→18:48)
[2017-12-06] MEDS ORDERED: OXYTOCIN/NORMAL SALINE 500 ML IV SCH ×2 (17:37→22:53)
--- NOTE | 2017-12-06 17:37 | History & Physical ---
History and Physical Date Seen by Provider: Dec 06, 2017 Time Seen by Provider: 17:35 This patient is a 20-year-old A1 white female with an EDC of 9 3018 putting her at 37+ weeks gestation. She presented with complaint of contractions and pressure. She also had nausea and diarrhea since yesterday. She was found to be arcneio and her cervix is shown demonstrable change from about 2 cm to now 4 cm. She is admitted now for labor management. Her significant history includes a GBS positive urine and vaginal culture. Patient has been started on ampicillin for GBS prophylaxis. Allergies are none Medications are vitamins Laboratory Tests 12/06/17 13:15 Medical social and surgical histories are per the antepartum record HEENT exam is normal Neck is supple no lymphadenopathy no thyromegaly Abdomen is gravid soft nontender nondistended Extreme show clubbing cyanosis. There is no Homans sign. Pelvic exam reveals a cervix for similar dilated 70 percent effaced -1 station vertex presentation with an intact bag. Amniotomy is performed with release of clear fluid. monitor shows contractions every 2-3 minutes. There is a normal heart rate pattern Assessment and plan term at 37+ weeks' gestation in labor spontaneously. Amniotomy has been performed for patient will be allowed an epidural and we anticipate a vaginal delivery 37+ week in labor Allergies and Home Medications Allergies Coded Allergies: NKANo Known Allergies (Verified Allergy, Unknown, 02/08/16) Home Medications Tak248/FA/Omega3/Dha/Fish Oil 1 Each Tab.chew, 1 EACH PO DAILY, (Reported) Patient Home Medication List Home Medication List Reviewed: Yes LOVE WOOD MD Dec 06, 2017 5:37 pm
[2017-12-06] MEDS ORDERED: IBUP-1780 PO (17:49)
[2017-12-06] MEDS ORDERED: DOCU-143 PO (17:49)
[2017-12-06] MEDS ORDERED: OXYC1TAB87 PO (17:49)
--- NOTE | 2017-12-06 17:53 | Discharge Instructions ---
Discharge Instructions Discharge Medications New, Converted or Re-Newed RX: RX on Chart Patient Instructions Patient Instructions: As directed Return to The Hospital For: As directed Activity & Diet Discharge Diet: No Restrictions Activity as Tolerated: No Orders-Post D/C & Referrals Follow Up Appt: Call to make follow up appt. for patient in 4 weeks. Activity Per routine post vaginal delivery instructions. Please call in RX to patient pharmacy. Diet as tolerated Patient may shower or tub bathe as desired. LOVE WOOD MD Dec 06, 2017 5:53 pm
[2017-12-06] MEDS ORDERED: SUFENTA 0.6MCG/ML BUPIVA 0.125 100 ML ONE (18:35)
[2017-12-06] MEDS ORDERED: fentaNYL INJECTION 100 MCG/2 ML AMP ONE (18:49)
[2017-12-06] MEDS ORDERED: NALOXONE 0.4 MG/ML 1 ML (NARCAN) VIAL IV PRN (19:00)
[2017-12-06] MEDS ORDERED: EPIDURAL (SUFENTA 0.6MCG/ML BUPIVA 0.125%) 100 ML BAG EPI PRN (19:00)
[2017-12-06] MEDS ORDERED: AMPICILLIN FOR IV USE 1,000 MG in NS (IVPB) 50 ML IV NR (19:00)
[2017-12-06] MEDS ORDERED: ONDANSETRON 4 MG/2 ML (SDV) Z0FRAN IV PRN (19:00)
[2017-12-06] MEDS ORDERED: diphenhydrAMINE 50 MG/ML INJ (BENADRYL) IV PRN (19:00)
[2017-12-06] MEDS ORDERED: BUPIVACAINE 0.25% 30 ML (SENSORCAINE) VIAL ONE (19:26)
[2017-12-06] MEDS ORDERED: LIDOCAINE PF 2% 2 ML (XYLOCAINE) VIAL ONE ×2 (19:26→19:27)
--- OUTSIDE RECORDS SUMMARY | 2017-12-06 22:56 | XMS REPORT ---
Author Author MITCH NANCE Organization [facility] Address [address] [place] [address] Care Team Providers Care Concierge Name Role Phone NANCEJEROME PenaELE Unavailable PROBLEMS Type Condition ICD9-CM Code NNR85-HV Code Onset Dates Condition Status SNOMED Code Problem Depression F32.9 Active 21907383 Problem Edema R60.9 Active 021964878 Problem Post-traumatic headache, unspecified, not intractable G44.309 Active 06558340 Problem Anxiety F41.9 Active 31958486 Problem Episodic cluster headache, not intractable G44.019 Active 599283296 Problem Routine health maintenance Z00.00 Active 658071073 Problem Obesity E66.9 Active 737502783 Problem Family history of diabetes mellitus Z83.3 Active 479100760 Problem Obesity (BMI 30-39.9) E66.9 Active 801068773 ALLERGIES No Known Allergies ENCOUNTERS Encounter Location Date Diagnosis [place] [address] [address] Jan, Depression F32.9 ; Anxiety F41.9 ; Obesity (BMI 30-39.9) E66.9 ; Episodic cluster headache, not intractable G44.019 ; Acute rhinosinusitis J01.90 and Right anterior knee pain M25.561 [place] [address] [place] [id number] [place] [address] 06336- 3663 Dec, Right anterior knee pain M25.561 and Obesity (BMI 30-39.9) E66.9 [place] [address] [place] [id number] [place] [address] 99753- 1729 Oct, Anxiety F41.9 [place] [address] [place] [id number] [place] [address] 82655- 4389 Aug, [place] [address] [place] [address] Jan, [facility] [address] [address] Jan, [facility] [address] [address] Dec, [address] [id number] [place] [address] Nov [facility] [id number] [place] [address] 75677- 4913 Oct, [facility] [address] [place] [id number] [place] [address] 22179- 8951 Oct, Episodic cluster headache, not intractable G44.019 ; Obesity (BMI 30-39.9) E66.9 and Toe pain, right M79.674 [facility] [id number] [place] [address] 17108- 3835 Sep, Nexplanon removal Z30.49 [facility] [id number] [place] [address] 85642- 8726 Sep, Routine health maintenance Z00.00 ; Episodic cluster headache, not intractable G44.019 ; Obesity (BMI 30-39.9) E66.9 and Irregular uterine bleeding N92.6 [facility] [address] [address] Sep, [facility] [id number] [place] [address] 65868- 5149 Sep, Routine health maintenance Z00.00 ; Episodic cluster headache, not intractable G44.019 ; Obesity (BMI 30-39.9) E66.9 ; Family history of diabetes mellitus Z83.3 and Irregular uterine bleeding N92.6 [facility] [address] [address] Aug, [facility] [id number] [place] [address] 22943- 9059 Aug, [facility] [address] [address] 5[address] Aug, [facility] [address] [place] [id number] [place] [address] 93775- 0361 July, [facility] [address] [place] [id number] [place] [address] 37508- 3366 July, ARTHUR MACIAS [address] [id number] [place] [address] Jun [facility] [address] [place] [id number] [place] [address] 18604- 4230 Jun, Depression F32.9 ; Post-traumatic headache, unspecified, not intractable G44.309 and Obesity E66.9 [facility] [address] [place] [id number] [place] [address] 80347- 8519 Apr, Depression F32.9 and Generalized anxiety disorder F41.1 [facility] [address] [place] [id number] [place] [address] 43548- 7679 Apr, Depression F32.9 ; Edema R60.9 and Post-traumatic headache, unspecified, not intractable G44.309 [facility] [id number] [place] [address] 95079- 2859 Apr, [facility] [address] [address] 3[address] Apr, [facility] [address] [id number] [place] [address] Apr [facility] [id number] [place] [address] 82961- 7634 Apr, [facility] [address] [place] [id number] [place] [address] 73514- 3306 Mar, [facility] [address] [address] 05[address] Mar, [facility] [address] [place] [id number] [place] [address] 99973- 4960 Feb, Nexplanon insertion Z30.49 [facility] [address] [address] 1556 Feb, [facility] [address] [address]80 Feb, [address] [id number] [place] [address] Jan [facility] [id number] [place] [address] 77286- 0425 Jan, [facility] [address] [place] [id number] [place] [address] 99251- 2792 Jan, [facility] [id number] [place] [address] 29539- 4581 Jan, [facility] [id number] [place] [address] 11225- 2981 Dec, [facility] [id number] [place] [address] 43417- 3211 Dec, [facility] [id number] [place] [address] 04453- 1393 Dec, [facility] [address] [place] [address] 96115- 8970 Dec, Derangement of posterior horn of lateral meniscus of right knee M23.351 [facility] [address] [place] [address] 53403- 2764 Dec, Routine follow-up Z39.2 ; Depression F32.9 and Anxiety F41.9 [facility] [address] [place] [address] 84460- 0936 Nov, Right knee pain 719.46 and Anxiety and depression 300.00 [facility] [address] [address] 16 Nov, 2014 [facility] [id number] [place] [address] 53253- 8029 15 Nov, 2014 [facility] [id number] [place] [address] 09019- 3609 15 Nov, 2014 [facility] [address] [place] [id number] [place] [address] 67631- 8760 Nov, [facility] [address] [place] [id number] [place] [address] 08593- 9354 Nov, [facility] [address] [place] [id number] [place] [address] 59070- 9733 Nov, [facility] [address] [place] [id number] [place] [address] 32286- 9220 Nov, Supervision of other normal V22.1 and TDAP DX V06.1 [facility] [address] [place] [id number] [place] [address] 23141- 0959 Nov, [facility] [address] [place] [id number] [place] [address] 92441- 2985 Nov, [facility] [id number] [place] [address] 35780- 2541 Nov, screening for streptococcus B V28.6 and Supervision of other normal V22.1 [facility] [id number] [place] [address] 77460- 1440 Oct, Supervision of other normal V22.1 [facility] [id number] [place] [address] 41195- 1122 Oct, [facility] [id number] [place] [address] 87665- 6713 Oct, [facility] [address] [place] [id number] [place] [address] 45176- 9978 Oct, Supervision of other normal V22.1 [facility] [id number] [place] [address] 04242- 1531 Oct, Left shoulder pain 719.41 and Right anterior knee pain 719.46 [facility] [address] [address]- 2314 Sep, [facility] [address] [place] [id number] [place] [address] 26945- 0539 Sep, [facility] [address] [place] [id number] [place] [address] 38546- 9626 Sep, Screening for diabetes mellitus V77.1 ; Screening, iron deficiency anemia V78.0 and Supervision of other normal V22.1 [facility] [address] [place] [id number] [place] [address] 48252- 5002 30 Aug, 2014 Abscess of axilla, left 682.3 [facility] [address] [place] [id number] [place] [address] 19131- 9474 09 Aug, 2014 Supervision of other normal V22.1 [place] [address] [place] [id number] [place] [address] 66543- 4696 Aug, [facility] [address] [place] [id number] [place] [address] 99001- 3267 July, Screening, , for anatomic survey V28.81 [facility] [address] [place] [id number] [place] [address] 82055- 1828 July, Supervision of other normal V22.1 [facility] [address] [address]- 2684 Jun, [facility] [address] [place] [id number] [place] [address] 96107- 1372 Jun, [facility] [address] [place] [id number] [place] [address] 92820- 5165 May, [facility] [address] [place] [id number] [place] [address] 11579- 9275 May, [facility] [address] [address]- 3343 May, [facility] [address] [place] [id number] [place] [address]- 9851 11 May, 2014 [facility] [place] [facility] [address] [id number] [place] [address]- 2350 May, 2014 [facility] [place] [facility] [address] [id number] [place] [address]- 9213 May, 2014 [facility] [place] [facility] [address] [id number] [place] [address]- 9439 08 May, 2014 [facility] [place] [facility] [address] [id number] [place] [address]- 2554 May, 2014 [facility] [place] [facility] [address] [id number] [place] [address]- 9989 May, 2014 [facility] [place] [facility] [address] [facility] [id number] [place] [address]- 4727 May, 2014 [facility] [place] [facility] [address] [facility] [id number] [place] [address]- 6449 May, 2014 [facility] [place] [facility] [address] [facility] [id number] [place] [address]- 6326 Apr, 2014 [facility] [place] [facility] [address] [facility] [id number] [place] [address]- 4450 Apr, 2014 [facility] [place] [facility] [address] [facility] [id number] [place] [address]- 1640 16 Apr, 2014 [facility] [place] [facility] [address] [facility] [id number] [place] [address]- 9437 Apr, 2014 [facility] [place] [facility] [address] [facility] [id number] [place] [address]- 0824 Apr, 2014 [facility] [place] [facility] [address] [id number] [place] [address]- 6557 Apr, 2014 [facility] [place] [facility] [address] [facility] [id number] [place] [address]- 2006 Apr, 2014 [facility] [place] [facility] [address] [facility] [id number] [place] [address]- 1582 Apr, [facility] [address] [facility] [id number] [address]- 2184 Mar, [facility] [address] [facility] [id number] [address]- 1036 Mar, [facility] [address] [facility] [id number] [address]- 0686 Mar, [facility] [address] [facility] [id number] [address] 2546 Mar, [facility] [address] [facility] [id number] [address]- 2896 Mar, [facility] [address] [place] [id number] [address]- 0436 Mar, [facility] [address] [facility] [id number] [address]- 8263 Feb, IMMUNIZATIONS No Known Immunizations SOCIAL HISTORY Never Assessed REASON FOR VISIT rt knee problems x 1 month -- nitin trevino PLAN OF CARE Activity Details Follow Up prn Reason: VITAL SIGNS Height 66 in 2017-01-03 Weight 234.5 lbs 2017-01-03 Temperature 98.0 degrees Fahrenheit 2017-01-03 Heart Rate 88 bpm 2017-01-03 Respiratory Rate 20 2017-01-03 BMI 37.85 kg/m2 2017-01-03 Blood pressure systolic 127 mmHg 2017-01-03 Blood pressure diastolic 80 mmHg 2017-01-03 MEDICATIONS Medication Instructions Dosage Frequency Start Date End Date Duration Status PredniSONE 10 mg Orally Once a day 4 tabs x 4 days, 3 tabs x 4 days, 2 tabs x 4 days, then 1 tab x 4 days 24h Dec, Dec, 16 days Active ibuprofen 1 tab Active Ibuprofen 800 MG Orally Three times a day 1 tablet with food or milk 8h Dec, Jan, 30 day(s) Active RESULTS Name Result Date Reference Range TEST, URINE (IN HOUSE) 2017-01-03 RESULTS Lot # [id number] Control + Exp date 04/27/18 Xray : Knee, Right 3 views (IN HOUSE) 2017-01-03 PROCEDURES Procedure Date Ordered Result Body Site X-RAY EXAM OF KNEE, 3 Jan 03, 2017 URINE TEST Jan 03, 2017 INSTRUCTIONS MEDICATIONS ADMINISTERED No Known Medications MEDICAL (GENERAL) HISTORY Type Description Date Medical History anxiety Medical History anemia Medical History depression Medical History nexaplon- placed 02/2015, miscarriage in March 2015 Surgical History otolaryngologic surgery tear duct surgery age 6 mths Surgical History dental surgery age 2 Surgical History cholecystectomy age 15 Hospitalization History Hospitalization for surgery only
--- OUTSIDE RECORDS SUMMARY | 2017-12-06 22:57 | XMS REPORT ---
Author Author MITCH NANCE Organization [facility] Address [address] [place] [address] Care Team Providers Care Supervisory Aide Name Role Phone NANCEJEROME PenaELE Unavailable PROBLEMS Type Condition ICD9-CM Code NFP74-ES Code Onset Dates Condition Status SNOMED Code Problem Depression F32.9 Active 23900194 Problem Edema R60.9 Active 488839062 Problem Post-traumatic headache, unspecified, not intractable G44.309 Active 50745846 Problem Anxiety F41.9 Active 36930780 Problem Episodic cluster headache, not intractable G44.019 Active 560540855 Problem Routine health maintenance Z00.00 Active 262523876 Problem Obesity E66.9 Active 869466624 Problem Family history of diabetes mellitus Z83.3 Active 300744644 Problem Obesity (BMI 30-39.9) E66.9 Active 896414948 ALLERGIES No Known Allergies ENCOUNTERS Encounter Location Date Diagnosis [place] [address] [address] Jan, Depression F32.9 ; Anxiety F41.9 ; Obesity (BMI 30-39.9) E66.9 ; Episodic cluster headache, not intractable G44.019 ; Acute rhinosinusitis J01.90 and Right anterior knee pain M25.561 [place] [id number] [place] [id number] [place] [address]- [address]10 Dec, Right anterior knee pain M25.561 and Obesity (BMI 30-39.9) E66.9 [place] [address] [id number] [place] [address] 99119- 8881 Oct, Anxiety F41.9 [place] [address] [place] [id number] [place] [address] 06803- 6630 Aug, [place] [address] [place] [address] Jan, [facility] [address] [address] Jan, [facility] [address], [place] [address] Dec, [address] [id number] [place] [address] Nov [facility] [id number] [place] [address]649- 7598 Oct, [facility] [address] [place] [id number] [place] [address] 59199- 9385 Oct, Episodic cluster headache, not intractable G44.019 ; Obesity (BMI 30-39.9) E66.9 and Toe pain, right M79.674 [facility] [id number] [place] [address] 05587- 7656 Sep, Nexplanon removal Z30.49 [facility] [id number] [place] [address] 67984- 3136 Sep, Routine health maintenance Z00.00 ; Episodic cluster headache, not intractable G44.019 ; Obesity (BMI 30-39.9) E66.9 and Irregular uterine bleeding N92.6 [facility] [address] [address] Sep, [facility] [id number] [place] [address] 97112- 2846 Sep, Routine health maintenance Z00.00 ; Episodic cluster headache, not intractable G44.019 ; Obesity (BMI 30-39.9) E66.9 ; Family history of diabetes mellitus Z83.3 and Irregular uterine bleeding N92.6 [facility] [address], [place] [address] 269[address] Aug, [facility] [id number] [place] [address] 69180- 1272 Aug, [facility] [address], [place] [address] Aug, [facility] [address] [place] [id number] [place] [address] 02916- 0909 July, [facility] [address] [place] [address] [id number] [place] [address] 04472- 4421 July, ARTHUR MACIAS [address] [id number] [place] [address] Jun [facility] [address] [place] [address] [id number] [place] [address] 68670- 6780 Jun, Depression F32.9 ; Post-traumatic headache, unspecified, not intractable G44.309 and Obesity E66.9 [facility] [address] [place] [id number] [place] [address] 20099- 5499 Apr, Depression F32.9 and Generalized anxiety disorder F41.1 [facility] [address] [place] [id number] [place] [address] 29284- 1463 Apr, Depression F32.9 ; Edema R60.9 and Post-traumatic headache, unspecified, not intractable G44.309 [facility] [id number] [place] [address] 41318- 1558 Apr, [facility] [address], [place] [address] Apr, [facility] [address] [id number] [place] [address] Apr [facility] [id number] [place] [address] 79746- 7238 Apr, [facility] [address] [place] [id number] [place] [address] 85756- 6183 Mar, [facility] [address] [address] 14[address] Mar, [facility] [address] [place] [id number] [place] [address] 40585- 0620 Feb, Nexplanon insertion Z30.49 [facility] [address], [place] [address] 14[address] Feb, [facility] [address], [place] [address] Feb, [address] [id number] [place] [address] Jan [facility] [id number] [place] [address] 29745- 2470 Jan, [facility] [address] [place] [id number] [place] [address] 33247- 8405 Jan, [facility] [id number] [place] [address] 24322- 0891 Jan, [facility] [id number] [place] [address] 08807- 6640 Dec, [facility] [id number] [place] [address] 78821- 7911 Dec, [facility] [id number] [place] [address] 11758- 0750 Dec, [facility] [id number] [place] [address] 71696- 5356 Dec, Derangement of posterior horn of lateral meniscus of right knee M23.351 [facility] [id number] [place] [address] 32554- 8569 Dec, Routine follow-up Z39.2 ; Depression F32.9 and Anxiety F41.9 [facility] [id number] [place] [address] 77109- 4063 Nov, Right knee pain 719.46 and Anxiety and depression 300.00 [facility] [address] [address] 33[address] 16 Nov, 2014 [facility] [id number] [place] [address] 27144- 3831 15 Nov, 2014 [facility] [id number] [place] [address] 21692- 0646 15 Nov, 2014 [facility] [address] [place] [id number] [place] [address] 81650- 4365 Nov, [facility] [address] [place] [id number] [place] [address] 09777- 2094 Nov, [facility] [address] [place] [id number] [place] [address] 52259- 2181 Nov, [facility] [address] [place] [id number] [place] [address] 34768- 5059 Nov, Supervision of other normal V22.1 and TDAP DX V06.1 [facility] [address] [place] [id number] [place] [address] 94548- 3817 Nov, [facility] [address] [place] [id number] [place] [address] 27616- 5547 Nov, [facility] [id number] [place] [address] 53059- 0775 Nov, screening for streptococcus B V28.6 and Supervision of other normal V22.1 [facility] [id number] [place] [address] 69886- 0381 Oct, Supervision of other normal V22.1 [facility] [id number] [place] [address] 98992- 5464 Oct, [facility] [id number] [place] [address] 60668- 3063 Oct, [facility] [address] [place] [id number] [place] [address] 87257- 0337 Oct, Supervision of other normal V22.1 [facility] [id number] [place] [address] 28497- 8806 Oct, Left shoulder pain 719.41 and Right anterior knee pain 719.46 [facility] [address], [place] [address] 9916 Sep, [facility] [address] [place] [id number] [place] [address] 41099- 8202 Sep, [facility] [address] [place] [id number] [place] [address] 38598- 6248 Sep, Screening for diabetes mellitus V77.1 ; Screening, iron deficiency anemia V78.0 and Supervision of other normal V22.1 [facility] [address] [place] [id number] [place] [address] 40975- 6335 30 Aug, 2014 Abscess of axilla, left 682.3 [facility] [address] [place] [id number] [place] [address] 01866- 6598 09 Aug, 2014 Supervision of other normal V22.1 [place] [address] [place] [id number] [place] [address] 85088- 3581 Aug, [facility] [address] [place] [id number] [place] [address] 99758- 6271 July, Screening, , for anatomic survey V28.81 [facility] [address] [place] [id number] [place] [address] 13363- 2547 July, Supervision of other normal V22.1 [facility] [address] [address]- 5491 Jun, [facility] [address] [place] [id number] [place] [address] 30466- 8207 Jun, [facility] [address] [place] [id number] [place] [address] 05074- 0531 May, [facility] [address] [place] [id number] [place] [address] 44977- 0999 May, [facility] [address], [place] [address]- 0618 May, [facility] [address] [place] [id number] [place] [address]- 4085 11 May, 2014 [facility] [place] [facility] [address] [id number] [place] [address]- 4256 May, 2014 [facility] [place] [facility] [address] [id number] [place] [address]- 4242 May, 2014 [facility] [place] [facility] [address] [id number] [place] [address]- 6796 08 May, 2014 [facility] [place] [facility] [address] [id number] [place] [address]- 3627 May, 2014 [facility] [place] [facility] [address] [id number] [place] [address]- 9438 May, 2014 [facility] [place] [facility] [address] [facility] [id number] [place] [address]- 3047 May, 2014 [facility] [place] [facility] [address] [facility] [id number] [place] [address]- 8166 May, 2014 [facility] [place] [facility] [address] [facility] [id number] [place] [address]- 3216 Apr, 2014 [facility] [place] [facility] [address] [facility] [id number] [place] [address]- 4458 Apr, 2014 [facility] [place] [facility] [address] [facility] [id number] [place] [address]- 1681 16 Apr, 2014 [facility] [place] [facility] [address] [facility] [id number] [place] [address]- 8760 Apr, 2014 [facility] [place] [facility] [address] [facility] [id number] [place] [address]- 9289 Apr, 2014 [facility] [place] [facility] [address] [id number] [place] [address]- 9677 Apr, 2014 [facility] [place] [facility] [address] [facility] [id number] [place] [address]- 9526 Apr, 2014 [facility] [place] [facility] [address] [facility] [id number] [place] [address]- 4176 Apr, [facility] [address] [facility] [id number] [address]- 0195 Mar, [facility] [address] [place] [id number] [address]- 4256 Mar, [facility] [address] [place] [id number] [address]- 8322 Mar, [facility] [address], [place] [address]- 9687 Mar, [facility] [address] [facility] [id number] [address]- 0692 Mar, [facility] [address], [place] [address]- 5836 Mar, [facility] [address] [place] [id number] [address]- 3173 Feb, IMMUNIZATIONS No Known Immunizations SOCIAL HISTORY Never Assessed REASON FOR VISIT knee fu, pt. states she would like to discuss weight loss, congestion---[place]burn, NEY PLAN OF CARE Activity Details Follow Up 4 Weeks Reason:weight management VITAL SIGNS Height 66 in 2017-02-18 Weight 237.4 lbs 2017-02-18 Temperature 97.8 degrees Fahrenheit 2017-02-18 Heart Rate 82 bpm 2017-02-18 Respiratory Rate 18 2017-02-18 BMI 38.31 kg/m2 2017-02-18 Blood pressure systolic 118 mmHg 2017-02-18 Blood pressure diastolic 77 mmHg 2017-02-18 MEDICATIONS Medication Instructions Dosage Frequency Start Date End Date Duration Status Zoloft 100 MG Orally Once a day 1 tablet 24h Apr, Not-Taking Vitamins Orally Once a day 1 tablet 24h Not-Taking Excedrin Migraine 250-250-65 MG Orally every 6 hrs 2 tablets as needed 6h Apr, Not-Taking Amitriptyline HCl 10 mg Orally Once a day 1 tablet 24h Jun, Not-Taking Diethylpropion HCl ER 75 MG Orally Once a day 1 tablet 24h Jan, Feb, 30 days Active Fluticasone Propionate 50 MCG/ACT Nasally Once a day 1 spray in each nostril 24h 24 Jan, 2017 30 day(s) Active ibuprofen 1 tab Active Topamax 50 MG Orally Twice a day 1 tablet 12h 2015 Not- Taking RESULTS No Results PROCEDURES No Known procedures INSTRUCTIONS MEDICATIONS ADMINISTERED No Known Medications MEDICAL [...]
--- OUTSIDE RECORDS SUMMARY | 2017-12-06 22:58 | XMS REPORT ---
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 Name Role Phone SEMAJ EVANS Unavailable PROBLEMS Type Condition ICD9-CM Code PTW63-MP Code Onset Dates Condition Status SNOMED Code Problem Depression F32.9 Active 34018119 Problem Edema R60.9 Active 123815395 Problem Post-traumatic headache, unspecified, not intractable G44.309 Active 90829915 Problem Anxiety F41.9 Active 17635116 Problem Episodic cluster headache, not intractable G44.019 Active 214888022 Problem Routine health maintenance Z00.00 Active 165165711 Problem Obesity E66.9 Active 354355253 Problem Family history of diabetes mellitus Z83.3 Active 593344877 Problem Obesity (BMI 30-39.9) E66.9 Active 640912660 ALLERGIES No Information ENCOUNTERS Encounter Location Date Diagnosis [place] [id number] [place] [address] 99843- 0900 Jan, Depression F32.9 ; Anxiety F41.9 ; Obesity (BMI 30-39.9) E66.9 ; Episodic cluster headache, not intractable G44.019 ; Acute rhinosinusitis J01.90 and Right anterior knee pain M25.561 [place] [id number] [place] [address] 38390- 8211 Dec, Right anterior knee pain M25.561 and Obesity (BMI 30-39.9) E66.9 [place] [id number] [place] [address] 95139- 0724 Oct, Anxiety F41.9 [place] [id number] [place] [address] 25670- 7909 Aug, [place] [address] [address] [address] Jan, [facility] [address] [address] Jan, [facility] [address] [address] Dec, [address] [id number] [place] [address] Nov [facility] [id number] [place] [address] 25757- 0981 Oct, [facility] [id number] [place] [address] 79111- 1138 Oct, Episodic cluster headache, not intractable G44.019 ; Obesity (BMI 30-39.9) E66.9 and Toe pain, right M79.674 [facility] [id number] [place] [address] 21814- 2100 Sep, Nexplanon removal Z30.49 [facility] [address] [address] Sep, Routine health maintenance Z00.00 ; Episodic cluster headache, not intractable G44.019 ; Obesity (BMI 30-39.9) E66.9 and Irregular uterine bleeding N92.6 [facility] [address] [address] Sep, [facility] [address] [address] 2015 Routine health maintenance Z00.00 ; Episodic cluster headache, not intractable G44.019 ; Obesity (BMI 30-39.9) E66.9 ; Family history of diabetes mellitus Z83.3 and Irregular uterine bleeding N92.6 [facility] [address] [address] Aug, [facility] [address] [address] 9[address] Aug, [facility] [address] [address] 97[address] Aug, [facility] [id number] [place] [address] 12036- 1755 July, [facility] [address] [address] 225[address] July, ARTHUR MACIAS [address] [id number] [place] [address] Jun [facility] [id number] [place] [address] 59627- 2024 Jun, Depression F32.9 ; Post-traumatic headache, unspecified, not intractable G44.309 and Obesity E66.9 [facility] [id number] [place] [address] 88035- 9438 Apr, Depression F32.9 and Generalized anxiety disorder F41.1 [facility] [id number] [place] [address] 33523- 2183 Apr, Depression F32.9 ; Edema R60.9 and Post-traumatic headache, unspecified, not intractable G44.309 [facility] [address] [address] 0898 Apr, [facility] [address] [address] 1233 Apr, ARTHUR MACIAS [address] [id number] [place] [address] Apr [facility] [address], [place] [address] 6462 Apr, [facility] [id number] [place] [address] 89529- 9928 Mar, [facility] [address], [place] [address] 0661 Mar, [facility] [id number] [place] [address] 85059- 5374 Feb, Nexplanon insertion Z30.49 [facility] [address] [address] 9481 Feb, [facility] [id number] [place] [address] 79369- 4087 Feb, [address] [id number] [place] [address] Jan [facility] [id number] [place] [address] 81389- 9927 Jan, [facility] [id number] [place] [address] 39979- 3460 Jan, [facility] [id number] [place] [address] 77511- 4999 Jan, [facility] [id number] [place] [address] 16235- 3043 Dec, [facility] [id number] [place] [address] 31969- 2642 Dec, [facility] [id number] [place] [address] 30785- 0335 Dec, [facility] [id number] [place] [address] 84506- 0953 Dec, Derangement of posterior horn of lateral meniscus of right knee M23.351 [facility] [id number] [place] [address] 41534- 8001 Dec, Routine follow-up Z39.2 ; Depression F32.9 and Anxiety F41.9 [facility] [id number] [place] [address] 88534- 2213 Nov, Right knee pain 719.46 and Anxiety and depression 300.00 [facility] [address] [address] 2566 16 Nov, 2014 [facility] [id number], [place] [address] 7988 15 Nov, 2014 [facility] [id number] [place] [address] 59342- 1916 15 Nov, 2014 [facility] [id number] [place] [address] 92049- 3281 Nov, [facility] [id number] [place] [address] 70185- 0990 Nov, [facility] [id number] [place] [address] 33522- 9258 Nov, [facility] [id number] [place] [address] 49040- 6676 Nov, Supervision of other normal V22.1 and TDAP DX V06.1 [facility] [id number] [place] [address] 27379- 2286 Nov, [facility] [id number] [place] [address] 55172- 9739 Nov, [facility] [id number] [place] [address] 81585- 7292 Nov, screening for streptococcus B V28.6 and Supervision of other normal V22.1 [facility] [id number] [place] [address] 54420- 5208 Oct, Supervision of other normal V22.1 [facility] [id number] [place] [address] 30738- 1748 Oct, [facility] [id number] [place] [address] 19799- 7734 Oct, Supervision of other normal V22.1 [facility] [id number] [place] [address] 75011- 8355 Oct, [facility] [id number] [place] [address] 47131- 6038 Oct, Left shoulder pain 719.41 and Right anterior knee pain 719.46 [facility] [address] [address]- 6689 Sep, [facility] [id number] [place] [address] 44713- 9976 Sep, [facility] [id number] [place] [address] 90814- 8277 Sep, Screening for diabetes mellitus V77.1 ; Screening, iron deficiency anemia V78.0 and Supervision of other normal V22.1 [facility] [id number] [place] [address] 06189- 3424 30 Aug, 2014 Abscess of axilla, left 682.3 [facility] [id number] [place] [address] 67585- 2464 09 Aug, 2014 Supervision of other normal V22.1 [facility] [id number] [place] [address] 66213- 0149 Aug, [facility] [id number] [place] [address] 97896- 4625 July, Screening, , for anatomic survey V28.81 [facility] [id number] [place] [address] 25926- 4636 July, Supervision of other normal V22.1 [facility] [address] [address]- 5345 Jun, [facility] [id number] [place] [address] 06992- 7860 Jun, [facility] [address], [place] [address]- 8769 May, [facility] [id number] [place] [address] 70989- 8515 May, [facility] [address] [address]- 4899 May, [facility] [address] [place] [address]- 9915 11 May, 2014 [facility] [place] [facility] [address] [id number] [place] [address]- 6929 May, 2014 [facility] [place] [facility] [address] [id number] [place] 4087 May, 2014 [facility] [place] [facility] [address] [id number] [place] [address]- 1652 08 May, 2014 [facility] [place] [facility] [address] [id number] [place] [address]- 4864 May, 2014 [facility] [place] [facility] [address] [id number] [place] [address]- 1738 May, 2014 [facility] [place] [facility] [address] [facility] [id number] [place] [address]- 2692 May, 2014 [facility] [place] [facility] [address] [facility] [id number] [place] [address]- 7239 May, 2014 [facility] [place] [facility] [address] [facility] [id number] [place] [address]- 2543 Apr, 2014 [facility] [place] [facility] [address] [facility] [id number] [place] [address]- 6663 Apr, 2014 [facility] [place] [facility] [address] [facility] [id number] [place] [address]- 1818 16 Apr, 2014 [facility] [place] [facility] [address] [facility] [id number] [place] [address]- 7553 Apr, 2014 [facility] [place] [facility] [address] [facility] [id number] [place] [address]- 0203 Apr, 2014 [facility] [place] [facility] [address] [id number] [place] [address]- 5189 Apr, 2014 [facility] [place] [facility] [address] [facility] [id number] [place] [address]- 4738 Apr, 2014 [facility] [place] [facility] [address] [facility] [id number] [place] [address]- 4657 Apr, [facility] [address] [facility] [id number] [address]- 6325 Mar, [facility] [id number] [address]- 2546 Mar, [facility] [id number] [address]- 4286 Mar, [facility] [address] [address]- 2546 Mar, [facility] [id number] [address]- 7049 Mar, [facility] [id number] [address]- 8176 Mar, [facility] [id number] [address]- 4416 Feb, IMMUNIZATIONS No Known Immunizations SOCIAL HISTORY Never Assessed REASON FOR VISIT [facility] Contact PLAN OF CARE Activity Details Follow Up 1 Week Reason: VITAL SIGNS MEDICATIONS No Known Medications RESULTS No Results PROCEDURES No Known procedures [...]
[2017-12-06] MEDS ORDERED: oxyCODONE/APAP 5/325MG (PERCOCET 5) TABLET PO PRN (23:00)
[2017-12-06] MEDS ORDERED: TETANUS,DIPTH,PERTUSS P/F (BOOSTRIX) 0.5 ML VIAL IM ONE (23:00)
[2017-12-06] MEDS ORDERED: ONDANSETRON 4 MG/2 ML (SDV) Z0FRAN IVP PRN (23:00)
[2017-12-06] MEDS ORDERED: BENZOCAINE/MENTHOL (DERMOPLAST) 56 ML CAN TP PRN (23:00)
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
--- NOTE | 2017-12-06 23:05 | OPERATIVE REPORT ---
DATE OF SERVICE: 12/06/2017 DELIVERY NOTE The patient delivered by term spontaneous vaginal delivery a viable male with Apgars of 8 and 9 at 1 and 5 minutes respectively, weight of 6 pounds 14 ounces. time of 2220. The was bulb suctioned on delivery of the head and again on completion of delivery. The umbilical cord was doubly clamped, father cut the cord, the baby was passed to mom's abdomen. The had spontaneous cry, moved all extremities, had excellent tone and reflexes and was quickly pink. The placenta delivered spontaneously [place]. It was normal with 3-vessel cord. The cervix, vagina, rectum and perineum were examined and found intact. Estimated blood loss was around 150 mL. Sponge and needle counts were correct on completion of the delivery. The baby remained with the mom in the LDR. The mom remained in the LDR for recovery. Job ID: [id number] DocumentID: [id number] Dictated Date: 12/06/2017 22:31:04 Associate Professor Of Musicology Date: 12/06/2017 23:04:32 Dictated By: LOVE WOOD MD
[2017-12-06] MEDS: KETOROLAC 30 MG/ML VIAL IV SCH (23:06)
[2017-12-07] VITALS (9 sets, daily range): BP systolic 94–108; BP diastolic 54–79
[2017-12-07] MEDS ORDERED: IBUPROFEN 800 MG (MOTRIN) TAB PO ONE ×3 (05:19→17:28)
[2017-12-07] MEDS: IBUPROFEN 800 MG (MOTRIN) TAB PO SCH ×3 (05:23→17:35)
--- NOTE | 2017-12-07 07:37 | Progress Note-Standard ---
Standard Progress Note Progress Notes/Assess & Plan Date Seen by Provider: Dec 07, 2017 Time Seen by Provider: 07:36 Progress/Assessment & Plan This patient is without complaint. She is ambulating, voiding, tolerating oral intake well has good pain control. Patient denies chest pain, denies shortness of, denies nausea vomiting, and denies headache. Vital Signs 12/07/17 05:23 Temp 99.0 Pulse 87 Resp 18 B/P (MAP) 100/70 (80) Pulse Ox 98 O2 Delivery Room Air Vital signs are stable. Patient is afebrile. Fundus is firm below the umbilicus and nontender. Extremities show no clubbing cyanosis. There is no Homans sign. Assessment and plan day number 1 status post term spontaneous vaginal delivery doing well. Plan is for routine convalescence care today discharge home tomorrow LOVE WOOD MD Dec 07, 2017 7:37 am
[2017-12-07] MEDS: DOCUSATE SODIUM 100 MG (COLACE) CAP PO SCH ×2 (12:25→20:50)
--- NOTE | 2017-12-07 14:00 | Anesthesia-Regional Post-Op ---
Regional Patient Condition Mental Status: Alert, Oriented x3 Circulation: Same as Pre-Op Headache: Absent Sensation: Full Recovery Motor Block: Absent Post Op Complications Complications None Follow Up Care/Instructions Patient Instructions None needed. Anesthesia/Patient Condition Patient is doing well, no complaints, stable vital signs, no apparent adverse anesthesia problems. No complications reported per nursing. IRAJ AVELAR CRNA Dec 07, 2017 14:00
[2017-12-07] MEDS: KETOROLAC 30 MG/ML VIAL IV SCH ×2 (20:00→20:01)
[2017-12-08 00:15] VITALS: BP 101/56
[2017-12-08] MEDS: IBUPROFEN 800 MG (MOTRIN) TAB PO SCH ×2 (00:18→05:59)
[2017-12-08 04:00] VITALS: BP 106/74
--- NOTE | 2017-12-08 07:58 | Progress Note-Standard ---
Standard Progress Note Progress Notes/Assess & Plan Date Seen by Provider: Dec 08, 2017 Time Seen by Provider: 07:57 Progress/Assessment & Plan This patient is without complaint. She is ambulating, voiding, tolerating oral intake well has good pain control. Patient denies chest pain, denies shortness of, denies nausea vomiting, and denies headache. Vital Signs 12/07/17 05:23 Temp 99.0 Pulse 87 Resp 18 B/P (MAP) 100/70 (80) Pulse Ox 98 O2 Delivery Room Air Vital signs are stable. Patient is afebrile. Fundus is firm below the umbilicus and nontender. Extremities show no clubbing cyanosis. There is no Homans sign. Assessment and plan day number 1 status post term spontaneous vaginal delivery doing well. Plan is for routine convalescence care today discharge home tomorrow December 08, 2017 Patient without complaint. She is ambulating, voiding, tolerating oral intake well has good pain control. Vital Signs 12/08/17 12/08/17 00:15 04:00 Temp 97.3 Pulse 76 Resp 20 B/P (MAP) 106/74 (85) Pulse Ox 99 O2 Delivery Room Air Vital signs are stable. Patient is afebrile. Fundus is firm below the umbilicus and nontender. Extremities show no clubbing cyanosis. There is no Homans sign. Assessment and plan day number 2 status post term spontaneous vaginal delivery doing well. Plan is for discharge home with follow-up in clinic. LOVE WOOD MD Dec 08, 2017 7:58 am
[2017-12-08 08:20] VITALS: BP 121/81
== END 2017-12-08 13:20 | disposition home or self-care (01) | DRG 775 ==
LOC: LDRP 12:35 → WSo 12:35 → LDRP 15:30
PROVIDERS: ADMIT Obstetrics & Gynecology; ATTEND Obstetrics & Gynecology
PROC: 10E0XZZ Delivery of Products of Conception, External Approach (ICD-10-PCS; principal; 2017-12-06)
DX: O26.893 Other specified pregnancy related conditions, third trimester (principal); O99.820 Streptococcus B carrier state complicating pregnancy; Z3A.37 37 weeks gestation of pregnancy; Z37.0 Single live birth
CPT/HCPCS: 36415; 85025; 88307; 99212

== ENCOUNTER → 2018-06-21 | Outpatient (CLI) | payer MEDICAID ==
[~2018-06-21] MED LIST changes: +DOCU-143 PO; +OXYC1TAB87 PO
--- NOTE | 2018-06-21 13:00 | Diagnostic Imaging Report ---
CLINICAL INDICATION: Patient with severe migraine headaches. Patient has history of migraine pressure behind left eye. EXAM: Axial CT scan of the brain performed without IV contrast. COMPARISON: Head CT without contrast dated 10/20/2014. FINDINGS: There is no evidence of acute cerebral infarct, intracranial hemorrhage, or gross mass effect. The brain parenchymal volume appears appropriate for patient's age. There is normal palma-white matter distinction. There is no significant midline shift or herniation. There is no evidence of hydrocephalus. The basal cisterns are unremarkable. The skull, extracranial soft tissue, and orbits are unremarkable. The paranasal sinuses are unremarkable. Temporal bones show no significant abnormality. IMPRESSION: Unremarkable CT scan of the brain. Dictated by: Dictated on workstation # [id number]
== END ==
LOC: RAD 12:10
PROVIDERS: ATTEND Nurse Practitioner Community Health
DX: G43.909 Migraine, unspecified, not intractable, without status migrainosus (principal); R41.3 Other amnesia
CPT/HCPCS: 70450

== ENCOUNTER 2019-04-12 15:05 | Emergency (ER) | payer MEDICAID ==
[~2019-04-12] VITALS: Ht 170 cm; Wt 104.5 kg
[~2019-04-12 15:05] MED LIST changes: -FLUO20CA25; +FLUO20CA45
[2019-04-12] MEDS ORDERED: RT-ALBUINH IH (15:22)
[2019-04-12] MEDS ORDERED: D-ME118S33 PO (15:22)
--- NOTE | 2019-04-12 15:23 | ED Cough/URI ---
General Chief Complaint: Cough/Cold/Flu Symptoms Stated Complaint: ACHE,WEAK,CONGESTED Source: patient Exam Limitations: no limitations History of Present Illness Date Seen by Provider: Apr 12, 2019 Time Seen by Provider: 15:10 Initial Comments To ER with cough, wheezing intermittently for the past 3 days, no fever, mother recently had pneumonia. Slight runny nose. Generally weak and achy Timing/Duration: other (3 days) Severity/Quality: dry cough Prior Episodes/Possible Cause: no prior episodes Associated Symptoms: cough, wheezing Allergies and Home Medications Allergies Coded Allergies: NKANo Known Allergies (Verified Allergy, Unknown, 02/08/16) Home Medications Albuterol Sulfate 1 Puff Puff, 2 PUFF IH Q4H PRN for WHEEZING 1 PUFF = 90 MCG Prescribed by: CAMILA SALGADO on 04/12/19 1522 D-Methorphan Hb/P-Epd HCl/Bpm 118 Ml Syrup, 5 ML PO Q4H PRN for COUGH Prescribed by: CAMILA SALGADO on 04/12/19 152 Docusate Sodium 100 Mg Capsule, 100 MG PO BID Prescribed by: LOVE SANDERS on 12/06/17 174 Ibuprofen 800 Mg Tablet, 800 MG PO Q6H PRN for PAIN Prescribed by: LOVE SANDERS on 12/06/17 174 Oxycodone HCl/Acetaminophen 1 Each Tablet, 1 EACH PO Q4H PRN for PAIN-MODERATE Prescribed by: LOVE SANDERS on 12/06/17 174 Dyi154/FA/Omega3/Dha/Fish Oil 1 Each Tab.chew, 1 EACH PO DAILY, (Reported) Patient Home Medication List Home Medication List Reviewed: Yes Review of Systems Review of Systems Constitutional: see HPI EENTM: see HPI, nose congestion Respiratory: see HPI, cough, wheezing Cardiovascular: no symptoms reported Genitourinary: no symptoms reported Musculoskeletal: no symptoms reported Skin: no symptoms reported Psychiatric/Neurological: No Symptoms Reported Hematologic/Lymphatic: No Symptoms Reported Immunological/Allergic: no symptoms reported Past Lyirifw-Phfsja-Fvqxbm Hx Patient Social History 2nd Hand Smoke Exposure: No Recent Foreign Travel: No Contact w/Someone Who Travel: No Recent Hopitalizations: No Immunizations Up To Date Tetanus Booster (TDap): Less than 5yrs PED Vaccines UTD: No Date of Influenza Vaccine: Mar 29, 2016 Seasonal Allergies Seasonal Allergies: Yes Past Medical History Surgeries: Yes Gallbladder Respiratory: No Cardiac: No Neurological: No 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 Sexually Transmitted Disease: Yes (Hx of chlamydia ) HIV/AIDS: No Genitourinary: No Gastrointestinal: No Musculoskeletal: No Chronic Back Pain Endocrine: No HEENT: No Cancer: No Psychosocial: Yes Anxiety, Depression Integumentary: No Blood Disorders: Yes (anemia ) Adverse Reaction/Blood Tranf: No Family Medical History Asthma 19 MOTHER FH: sleep apnea 19 FATHER Hypertension 19 FATHER No Pertinent Family Hx Physical Exam Vital Signs - First Documented 04/12/19 15:10 Temp 36.4 Pulse 90 Resp 18 B/P (MAP) 107/81 (90) Pulse Ox 97 O2 Delivery Room Air Capillary Refill : Height: 5'6.50" Weight: 232lbs. 0.6oz. 105.694082lk; 36.9 BMI Method:Stated General Appearance: WD/WN, no apparent distress Eyes: Bilateral Eye Normal Inspection, Bilateral Eye PERRL, Bilateral Eye EOMI HEENT: PERRL/EOMI, normal ENT inspection, TMs normal, pharynx normal Neck: non-tender Respiratory: normal breath sounds, no respiratory distress, no accessory muscle use; No crackles, No wheezing Cardiovascular: regular rate, rhythm, no murmur Gastrointestinal: normal bowel sounds, non tender, soft Neurologic/Psychiatric: alert, normal mood/affect, oriented x 3 Skin: normal color, warm/dry Progress/Results/Core Measures Suspected Sepsis SIRS Temperature: Pulse: Respiratory Rate: Blood Pressure / Mean: Results/Orders Micro Results Microbiology 04/12/19 Influenza Types A,B Antigen (CHELA) - Final, Complete My Orders Orders - CAMILA SALGADO APRN Influenza A And B Antigens (04/12/19 15:17) Chest 1 View, Ap/Pa Only (04/12/19 15:19) Vital Signs/I&O 04/12/19 15:10 Temp 36.4 Pulse 90 Resp 18 B/P (MAP) 107/81 (90) Pulse Ox 97 O2 Delivery Room Air Capillary Refill : Diagnostic Imaging Diagonstic Imaging: Xray Comments [facility] [id number] PT STATUS: REG ER : 1995 PHYSICIAN: CAMILA SALGADO APRN ADMIT DATE: 04/12/19/ER Draft Date of Exam:04/12/19 CHEST 1 VIEW, AP/PA ONLY Indication: Fatigue and wheezing. Time of exam: 3:36 p.m. Comparison: No prior studies are available for comparison. Findings: The heart size is normal. The pulmonary vascularity is unremarkable. The lungs are clear. No infiltrate, effusion or pneumothorax is detected. Impression: No acute cardiopulmonary process is detected. Dictated on workstation # [id number] Dict: 04/12/19 1544 Trans: 04/12/19 1545 [facility] [id number] Interpreted by: KAREY CHAND MD Electronically signed by: Departure Impression Primary Impression: Influenza-like symptoms Disposition: HOME, SELF-CARE Condition: Stable Departure-Patient Inst. Decision time for Depature: 15:21 Referrals: [facility] (PCP/Family) Primary Care Physician Patient Instructions: Flu Add. Discharge Instructions: 1. Medication as directed 2. Return to ER for any concerns 3. Follow-up with your doctor next week All discharge instructions reviewed with patient and/or family. Voiced understanding. Scripts D-Methorphan Hb/P-Epd HCl/Bpm (Bromfed Dm Cough Syrup) 118 Ml Syrup 5 ML PO Q4H PRN for COUGH for 7 Days, #120 ML Prov: CAMILA SALGADO APRN 04/12/19 Albuterol Sulfate (PROAIR HFA) 1 Puff Puff 2 PUFF IH Q4H PRN for WHEEZING, #1 PUFF 1 PUFF = 90 MCG Prov: CAMILA SALGADO APRN 04/12/19 Work/School Note: Work Release Form Date Seen in the Emergency Department: Apr 12, 2019 Return to Work: Apr 15, 2019 CAMILA SALGADO APRN Apr 12, 2019 15:23
--- NOTE | 2019-04-12 15:45 | Diagnostic Imaging Report ---
Indication: Fatigue and wheezing. Time of exam: 3:36 p.m. Comparison: No prior studies are available for comparison. Findings: The heart size is normal. The pulmonary vascularity is unremarkable. The lungs are clear. No infiltrate, effusion or pneumothorax is detected. Impression: No acute cardiopulmonary process is detected. Dictated by: Dictated on workstation # [id number]
[2019-04-12 15:51] VITALS: BP 107/81
== END 2019-04-12 15:51 | disposition home or self-care (01) ==
LOC: EDUNIT# 15:05 → ER 15:07
DX: R09.89 Other specified symptoms and signs involving the circulatory and respiratory systems (principal); F41.9 Anxiety disorder, unspecified; F32.9 Major depressive disorder, single episode, unspecified; D64.9 Anemia, unspecified; Z82.49 Family history of ischemic heart disease and other diseases of the circulatory system
CPT/HCPCS: 71045; 87804

== ENCOUNTER 2019-05-14 18:31 | Emergency (ER) | payer MEDICAID ==
[~2019-05-14] VITALS: Ht 170 cm; Wt 106.1 kg
[~2019-05-14 18:31] MED LIST changes: +D-ME118S33 PO; +RT-ALBUINH IH
[2019-05-14] MEDS ORDERED: KETOROLAC 60 MG/2 ML VIAL IM ONE (19:45)
--- NOTE | 2019-05-14 20:01 | Diagnostic Imaging Report ---
INDICATION: Chest tightness. Frontal chest obtained at 07:57 p.m. and compared to 04/12/2019. FINDINGS: Heart and mediastinal silhouette are normal in appearance. The lungs are clear. There is no pneumothorax or pleural fluid. IMPRESSION: Negative chest. Dictated by: Dictated on workstation # [id number]
[2019-05-14] MEDS ORDERED: BENZ100C18 PO (20:23)
[2019-05-14] MEDS ORDERED: AMOX-358 PO (20:23)
[2019-05-14] MEDS ORDERED: FLUT9.9S NS (20:23)
--- NOTE | 2019-05-14 20:24 | ED General ---
General Chief Complaint: Cough/Cold/Flu Symptoms Stated Complaint: PRESSURE IN HEAD,SOB Nursing Triage Note: Patient ambulatory to ER FT2 with parent with complaint of pressure to the back of her head, cough, and shortness of breath x 3 days. Patient states she feels like something is sitting on her chest. Patient is awake and alert x 4. No respiratory distress present at this time. Nursing Sepsis Screen: No Definite Risk Source of Information: Patient Exam Limitations: No Limitations History of Present Illness Date Seen by Provider: May 14, 2019 Time Seen by Provider: 19:30 Initial Comments 23-year-old female who presents to the emergency room with complaints of sinus pressure that radiates to the back of her head, cough, shortness of breath for the past 3 days. She reports that she has cough that causes pressure in her chest when coughing. She is alert and oriented on arrival to the emergency room at this time. Allergies and Home Medications Allergies Coded Allergies: NKANo Known Allergies (Verified Allergy, Unknown, 02/08/16) Home Medications Albuterol Sulfate 1 Puff Puff, 2 PUFF IH Q4H PRN for WHEEZING 1 PUFF = 90 MCG Prescribed by: CAMILA SALGADO on 04/12/19 1522 D-Methorphan Hb/P-Epd HCl/Bpm 118 Ml Syrup, 5 ML PO Q4H PRN for COUGH Prescribed by: CAMILA SALGADO on 04/12/19 1522 Docusate Sodium 100 Mg Capsule, 100 MG PO BID Prescribed by: LOVE SANDERS on 12/06/17 1749 Ibuprofen 800 Mg Tablet, 800 MG PO Q6H PRN for PAIN Prescribed by: LOVE SANDERS on 12/06/17 174 Oxycodone HCl/Acetaminophen 1 Each Tablet, 1 EACH PO Q4H PRN for PAIN-MODERATE Prescribed by: LOVE SANDERS on 12/06/17 1749 Hwf125/FA/Omega3/Dha/Fish Oil 1 Each Tab.chew, 1 EACH PO DAILY, (Reported) Past Paixrce-Dcavlv-Mbxgdy Hx Patient Social History Alcohol Use: Denies Use Recreational Drug Use: No Smoking Status: Never a Smoker 2nd Hand Smoke Exposure: No Recent Foreign Travel: No Contact w/Someone Who Travel: No Recent Infectious Disease Expo: No Recent Hopitalizations: No Physical Abuse: No Sexual Abuse: No Mistreated: No Fear: No Immunizations Up To Date Tetanus Booster (TDap): Unknown PED Vaccines UTD: No Date of Influenza Vaccine: Mar 29, 2016 Seasonal Allergies Seasonal Allergies: Yes Past Medical History Surgeries: Yes (tear duct surgery) Gallbladder Respiratory: No Cardiac: No Neurological: No Last Menstrual Period: Apr 29, 2019 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 Sexually Transmitted Disease: Yes (Hx of chlamydia ) HIV/AIDS: No Genitourinary: No Gastrointestinal: No Musculoskeletal: No Chronic Back Pain Endocrine: No HEENT: No Cancer: No Psychosocial: Yes Anxiety, Depression Integumentary: No Blood Disorders: Yes (anemia ) Adverse Reaction/Blood Tranf: No Family Medical History Asthma 19 MOTHER FH: sleep apnea 19 FATHER Hypertension 19 FATHER No Pertinent Family Hx Physical Exam Vital Signs Vital Signs - First Documented 05/14/19 18:55 Temp 36.9 Pulse 101 Resp 16 B/P (MAP) 103/71 (82) Pulse Ox 96 O2 Delivery Room Air Capillary Refill : Less Than 3 Seconds Height, Weight, BMI Height: 5'6.50" Weight: 232lbs. 0.6oz. 105.557094mk; 36.00 BMI Method:Stated Progress/Results/Core Measures Suspected Sepsis Recent Fever Within 48 Hours: No Infection Criteria Present: None New/Unexplained Altered Menta: No Sepsis Screen: No Definite Risk SIRS Temperature: Pulse: 101 Respiratory Rate: 16 Blood Pressure 103 /71 Mean: 82 Results/Orders My Orders Orders - ORA MENDIETA Ketorolac Injection (Toradol Injection) (05/14/19 19:45) Chest 1 View, Ap/Pa Only (05/14/19 19:42) Medications Given in ED Current Medications Medications Dose Ordered Sig/Chucky Route Start Time Stop Time Status Last Admin Dose Admin Ketorolac Tromethamine 60 mg ONCE ONCE IM 05/14/19 19:45 05/14/19 19:46 DC 05/14/19 19:43 60 MG Vital Signs/I&O 05/14/19 18:55 Temp 36.9 Pulse 101 Resp 16 B/P (MAP) 103/71 (82) Pulse Ox 96 O2 Delivery Room Air Capillary Refill : Less Than 3 Seconds Blood Pressure Mean: 82 Departure Impression Primary Impression: Sinusitis Additional Impression: Cough Disposition: 01 HOME, SELF-CARE Condition: Stable/Unchanged Departure-Patient Inst. Decision time for Depature: 20:21 Referrals: [facility] [place] ([place]) Primary Care Physician PLACIDO DAVIS (Family) Primary Care Physician Patient Instructions: Sinusitis in Adults, Cough in Adults Add. Discharge Instructions: Take medications as directed. Follow-up with Kirill Davis at [facility] within 1 week for recheck. Return back to the emergency room for worsening symptoms or concerns as needed. All discharge instructions reviewed with patient and/or family. Voiced understanding. Scripts Benzonatate (TESSALON PERLES) 100 Mg Capsule 100 MG PO TID for 7 Days, #21 CAP Prov: ORA MENDIETA 05/14/19 Amoxicillin/Potassium Clav (Augmentin 875-125 Tablet) 1 Each Tablet 1 EACH PO BID for 7 Days, #14 TAB 0 Refills Prov: ORA MENDIETA 05/14/19 Fluticasone Propionate (Flonase Allergy Relief) 9.9 Ml [place].susp 1 SPRAY NS DAILY, #1 EACH 1 SPRAY EACH NARE DAILY Prov: ORA MENDIETA 05/14/19 ORA MENDIETA May 14, 2019 20:24
[2019-05-14 20:44] VITALS: BP 103/71
== END 2019-05-14 20:44 | disposition home or self-care (01) ==
LOC: EDUNIT# 18:31 → ER 18:32
DX: J32.9 Chronic sinusitis, unspecified (principal); Z82.49 Family history of ischemic heart disease and other diseases of the circulatory system
CPT/HCPCS: 71045; 96372; 99284

== ENCOUNTER 2019-06-04 21:52 | Emergency (ER) | payer MEDICAID ==
[~2019-06-04] VITALS: Ht 170 cm; Wt 108.3 kg
[~2019-06-04 21:52] MED LIST changes: +AMOX-358 PO; +BENZ100C18 PO; -FLUO20CA45; +FLUO20CA46; +FLUT9.9S NS
[2019-06-04] MEDS ORDERED: NS IV 1000 ML 1,000 ML IV SCH (22:53)
[2019-06-04] MEDS ORDERED: KETOROLAC 30 MG/ML VIAL IVP ONE (23:00)
[2019-06-04 23:39] LABS: BASOPHILS % (AUTO) 0 % (0-10); EOSINOPHILS # (AUTO) 0.1 10^3/uL (0.0-0.3); EOSINOPHILS % (AUTO) 1 % (0-10); HEMATOCRIT 39 % (35-52); HEMOGLOBIN 12.7 G/DL (11.5-16.0); LYMPHOCYTES # (AUTO) 1.6 X 10^3 (1.0-4.0); LYMPHOCYTES % (AUTO) 18 % (12-44); MEAN CORPUSCULAR HEMOGLOBIN 28 PG (25-34); MEAN CORPUSCULAR HGB CONC 33 G/DL (32-36); MEAN CORPUSCULAR VOLUME 87 FL (80-99); MEAN PLATELET VOLUME 10.1 FL (7.4-10.4); MONOCYTES # (AUTO) 0.5 X 10^3 (0.0-1.0); MONOCYTES % (AUTO) 6 % (0-12); NEUTROPHILS # (AUTO) 7.1 X 10^3 (1.8-7.8); NEUTROPHILS % (AUTO) 76 % (42-75); PLATELET COUNT 295 10^3/uL (130-400); RED CELL DISTRIBUTION WIDTH 13.7 % (10.0-14.5); WHITE BLOOD COUNT 9.4 10^3/uL (4.3-11.0)
[2019-06-04 23:43] LABS: BILIRUBIN,URINE NEGATIVE (NEGATIVE); CLARITY,URINE SL CLOUDY; COLOR,URINE YELLOW; GLUCOSE, URINE (UA) NEGATIVE (NEGATIVE); KETONES,URINE NEGATIVE (NEGATIVE); LEUKOCYTE ESTERASE ,URINE 1+ (NEGATIVE); NITRITE,URINE NEGATIVE (NEGATIVE); PROTEIN,URINE NEGATIVE (NEGATIVE)
[2019-06-04 23:56] LABS: ALANINE AMINOTRANSFERASE 27 U/L (0-55); ALBUMIN 4.1 GM/DL (3.2-4.5); ALKALINE PHOSPHATASE 101 U/L (40-136); BILIRUBIN,TOTAL 0.3 MG/DL (0.1-1.0); BUN/CREATININE RATIO 13; CALCIUM 9.2 MG/DL (8.5-10.1); CARBON DIOXIDE 25 MMOL/L (21-32); CHLORIDE 105 MMOL/L (98-107); CREATINE KINASE 39 U/L (29-168); CREATININE SERUM 0.69 MG/DL (0.60-1.30); GFR ESTIMATED > 60; GLUCOSE 100 MG/DL (70-105); POTASSIUM 3.7 MMOL/L (3.6-5.0); SODIUM 140 MMOL/L (135-145); TOTAL PROTEIN 7.4 GM/DL (6.4-8.2)
[2019-06-05 00:09] LABS: WBC,URINE 25-50 /HPF
[2019-06-05 00:10] LABS: AMORPHOUS SEDIMENT,UR FEW AMOR URATES /LPF; BACTERIA,URINE MODERATE /HPF
[2019-06-05] MEDS ORDERED: cefTRIAXone FOR IV USE 1,000 MG in WATER (STERILE) FOR INJECTION 10 ML IV ONE (00:30)
[2019-06-05] MEDS ORDERED: LACTATED RINGERS 1,000 ML IV ONE (00:44)
--- NOTE | 2019-06-05 01:41 | NUR ---
DR. ALFORD NOTIFIED OF 2L OF IVF COMPLETE AND AT 0130 BP WAS 99/76. DR. VAUGHN REQUESTS BP STANDING UP AT THIS TIME WHICH IS 99/82.
[2019-06-05] MEDS ORDERED: CEPH-507 PO (01:56)
--- NOTE | 2019-06-05 01:56 | ED General ---
General Chief Complaint: Cough/Cold/Flu Symptoms Stated Complaint: BODY ACHING Nursing Triage Note: PT PRESENTS TO THE ED C/O GENERALIZED BODY ACHES, SORE THROAT AND INTEMITTENT FEVERS FOR ONE WEEK Nursing Sepsis Screen: Possible Severe Sepsis Risk Source of Information: Patient Exam Limitations: No Limitations History of Present Illness Date Seen by Provider: Jun 04, 2019 Time Seen by Provider: 22:06 Initial Comments This 23-year-old young lady presents to the emergency room with primary complaint of myalgia 1 week. She is noted to have a heart rate in the 130s on arrival. She has felt lightheaded and has had subjective fever. Allergies and Home Medications Allergies Coded Allergies: NKANo Known Allergies (Verified Allergy, Unknown, 02/08/16) Home Medications Albuterol Sulfate 1 Puff Puff, 2 PUFF IH Q4H PRN for WHEEZING 1 PUFF = 90 MCG Prescribed by: CAMILA SALGADO on 04/12/19 152 Amoxicillin/Potassium Clav 1 Each Tablet, 1 EACH PO BID Prescribed by: ORA MENDIETA on 05/14/192022 Benzonatate 100 Mg Capsule, 100 MG PO TID Prescribed by: ORA MENDIETA on 05/14/192022 Cephalexin 500 Mg Capsule, 500 MG PO TID Prescribed by: SVETLANA LEWIS on 06/05/19 0156 D-Methorphan Hb/P-Epd HCl/Bpm 118 Ml Syrup, 5 ML PO Q4H PRN for COUGH Prescribed by: CAMILA SALGADO on 04/12/19 152 Docusate Sodium 100 Mg Capsule, 100 MG PO BID Prescribed by: LOVE SANDERS on 12/06/171748 Fluticasone Propionate 9.9 Ml [place].susp, 1 SPRAY NS DAILY 1 SPRAY EACH NARE DAILY Prescribed by: ORA MENDIETA on 05/14/192022 Ibuprofen 800 Mg Tablet, 800 MG PO Q6H PRN for PAIN Prescribed by: LOVE SANDERS on 12/06/171748 Oxycodone HCl/Acetaminophen 1 Each Tablet, 1 EACH PO Q4H PRN for PAIN-MODERATE Prescribed by: LOVE SANDERS on 12/06/171748 Mdn931/FA/Omega3/Dha/Fish Oil 1 Each Tab.chew, 1 EACH PO DAILY, (Reported) Patient Home Medication List Home Medication List Reviewed: Yes Review of Systems Review of Systems Constitutional: see HPI EENTM: no symptoms reported Respiratory: no symptoms reported Cardiovascular: see HPI Gastrointestinal: no symptoms reported Genitourinary: no symptoms reported : No Expected Date of Delivery: Jun 01, 2019 Musculoskeletal: no symptoms reported Skin: no symptoms reported Psychiatric/Neurological: No Symptoms Reported Hematologic/Lymphatic: No Symptoms Reported Past Yylpvak-Risgoh-Akebnj Hx Patient Social History Alcohol Use: Denies Use Recreational Drug Use: No Smoking Status: Never a Smoker 2nd Hand Smoke Exposure: No Recent Foreign Travel: No Contact w/Someone Who Travel: No Recent Infectious Disease Expo: No Recent Hopitalizations: No Physical Abuse: No Sexual Abuse: No Mistreated: No Fear: No Immunizations Up To Date Tetanus Booster (TDap): Unknown PED Vaccines UTD: No Date of Influenza Vaccine: Mar 29, 2016 Seasonal Allergies Seasonal Allergies: Yes Past Medical History Surgeries: Yes (tear duct surgery) Gallbladder Respiratory: No Cardiac: No Neurological: No : No Expected Date of Delivery: Jun 01, 2019 Reproductive Disorders: No (Implantable control) 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: IUD Sexually Transmitted Disease: Yes (Hx of chlamydia ) HIV/AIDS: No Genitourinary: No Gastrointestinal: No Musculoskeletal: Yes Chronic Back Pain Endocrine: No HEENT: No Cancer: No Psychosocial: Yes Anxiety, Depression Integumentary: No Blood Disorders: Yes (anemia ) Adverse Reaction/Blood Tranf: No Family Medical History Asthma 19 MOTHER FH: sleep apnea 19 FATHER Hypertension 19 FATHER No Pertinent Family Hx Physical Exam Vital Signs Vital Signs - First Documented 06/04/19 22:07 Temp 36.6 Pulse 111 Resp 20 B/P (MAP) 108/75 (86) Pulse Ox 99 O2 Delivery Room Air Capillary Refill : Less Than 3 Seconds Height, Weight, BMI Height: 5'6.50" Weight: 232lbs. 0.6oz. 105.219654ax; 37.00 BMI Method:Stated General Appearance: No Apparent Distress, WD/WN HEENT: PERRL/EOMI, TMs Normal, Normal ENT Inspection, Tonsillar Exudate, Other (White patches on the tonsils bilaterally) Neck: Normal Inspection, Supple Respiratory: Lungs Clear, Normal Breath Sounds, No Accessory Muscle Use, No Respiratory Distress Cardiovascular: Regular Rate, Rhythm, No Edema, No Murmur, Normal Peripheral Pulses Gastrointestinal: Normal Bowel Sounds, No Organomegaly, Soft Extremity: Normal Inspection, No Pedal Edema Neurologic/Psychiatric: Alert, Oriented x3, No Motor/Sensory Deficits, Normal 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, 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 Norm as Tested Skin: Normal Color, Warm/Dry Progress/Results/Core Measures Suspected Sepsis Recent Fever Within 48 Hours: Yes Infection Criteria Present: Suspected New Infection New/Unexplained Altered Menta: No Sepsis Screen: Possible Severe Sepsis Risk SIRS Temperature: Pulse: 111 Respiratory Rate: 20 Laboratory Tests 06/04/19 23:28: White Blood Count 9.4 Blood Pressure 108 /75 Mean: 86 Laboratory Tests 06/04/19 23:28: Creatinine 0.69, Platelet Count 295, Total Bilirubin 0.3 Results/Orders Lab Results Laboratory Tests Test 06/04/19 22:13 06/04/19 23:28 06/04/19 23:29 Range/Units Group A Streptococcus Screen NEGATIVE NEGATIVE White Blood Count 9.4 4.3-11.0 10^3/uL Red Blood Count 4.47 4.35-5.85 10^6/uL Hemoglobin 12.7 11.5-16.0 G/DL Hematocrit 39 35-52 % Mean Corpuscular Volume 87 80-99 FL Mean Corpuscular Hemoglobin 28 25-34 PG Mean Corpuscular Hemoglobin Concent 33 32-36 G/DL Red Cell Distribution Width 13.7 10.0-14.5 % Platelet Count 295 130-400 10^3/uL Mean Platelet Volume 10.1 7.4-10.4 FL Neutrophils (%) (Auto) 76 H 42-75 % Lymphocytes (%) (Auto) 18 12-44 % Monocytes (%) (Auto) 6 0-12 % Eosinophils (%) (Auto) 1 0-10 % Basophils (%) (Auto) 0 0-10 % Neutrophils # (Auto) 7.1 1.8-7.8 X 10^3 Lymphocytes # (Auto) 1.6 1.0-4.0 X 10^3 Monocytes # (Auto) 0.5 0.0-1.0 X 10^3 Eosinophils # (Auto) 0.1 0.0-0.3 10^3/uL Basophils # (Auto) 0.0 0.0-0.1 10^3/uL Sodium Level 140 135-145 MMOL/L Potassium Level 3.7 3.6-5.0 MMOL/L Chloride Level 105 98-107 MMOL/L Carbon Dioxide Level 25 21-32 MMOL/L Anion Gap 10 5-14 MMOL/L Blood Urea Nitrogen 9 7-18 MG/DL Creatinine 0.69 0.60-1.30 MG/DL Estimat Glomerular Filtration Rate > 60 BUN/Creatinine Ratio 13 Glucose Level 100 70-105 MG/DL Calcium Level 9.2 8.5-10.1 MG/DL Corrected Calcium 9.1 8.5-10.1 MG/DL Total Bilirubin 0.3 0.1-1.0 MG/DL Aspartate Amino Transf (AST/SGOT) 27 5-34 U/L Alanine Aminotransferase (ALT/SGPT) 27 0-55 U/L Alkaline Phosphatase 101 40-136 U/L Total Creatine Kinase 39 29-168 U/L C-Reactive Protein High Sensitivity 0.74 H 0.00-0.50 MG/DL Total Protein 7.4 6.4-8.2 GM/DL Albumin 4.1 3.2-4.5 GM/DL Serum Test, Qualitative NEGATIVE NEGATIVE Monoscreen NEGATIVE NEGATIVE Urine Color YELLOW Urine Clarity SL CLOUDY Urine pH 6.0 5-9 Urine Specific [place] >=1.030 1.016-1.022 Urine Protein NEGATIVE NEGATIVE Urine Glucose (UA) NEGATIVE NEGATIVE Urine Ketones NEGATIVE NEGATIVE Urine Nitrite NEGATIVE NEGATIVE Urine Bilirubin NEGATIVE NEGATIVE Urine Urobilinogen 0.2 < = 1.0 MG/DL Urine Leukocyte Esterase 1+ H NEGATIVE Urine RBC (Auto) NEGATIVE NEGATIVE Urine RBC NONE /HPF Urine WBC 25-50 H /HPF Urine Crystals PRESENT H /LPF Urine Amorphous Sediment FEW LINDA URATES H /LPF Urine Bacteria MODERATE H /HPF Urine Casts NONE /LPF Urine Mucus MODERATE H /LPF Urine Culture Indicated YES Micro Results Microbiology 06/04/19 Influenza Types A,B Antigen (CHELA) - Final, Complete My Orders Orders - SVETLANA ALFORD MD Influenza A And B Antigens (06/04/19 21:57) Rapid Strep A Screen (06/04/19 22:32) Cbc With Automated Diff (06/04/19 22:53) Comprehensive Metabolic Panel (06/04/19 22:53) Creatine Kinase (06/04/19 22:53) Hs C Reactive Protein (06/04/19 22:53) Hcg,Qualitative Serum (06/04/19 22:53) Monotest (06/04/19 22:53) Ua Culture If Indicated (06/04/19 22:53) Ed Iv/Invasive Line Start (06/04/19 22:53) Ns Iv 1000 Ml (Sodium Chloride 0.9%) (06/04/19 22:53) Ketorolac Injection (Toradol Injection) (06/04/19 23:00) Urine Culture (06/04/19 23:29) Ceftriaxone For Iv Use (Rocephin For I (06/05/19 00:30) Lactated Ringers (Lr 1000 Ml Iv Solution (06/05/19 00:44) Medications Given in ED Current Medications Medications Dose Ordered Sig/Chucky Route Start Time Stop Time Status Last Admin Dose Admin Ceftriaxone Sodium 1000 mg/ Sterile Water 10 ml @ 200 mls/hr ONCE ONCE IV 06/05/19 00:30 06/05/19 00:32 DC 06/05/19 00:42 200 MLS/HR Ketorolac Tromethamine 15 mg ONCE ONCE IVP 06/04/19 23:00 06/04/19 23:01 DC 06/04/19 23:40 15 MG Lactated Ringer's 1,000 ml @ 0 mls/hr Q0M ONCE IV 06/05/19 00:44 06/05/19 00:45 DC 06/05/19 00:56 1,000 MLS/HR Vital Signs/I&O 06/04/19 06/04/19 06/05/19 22:07 22:07 02:05 Temp 36.6 36.7 Pulse 111 79 Resp 20 18 B/P (MAP) 108/75 (86) 102/77 (86) Pulse Ox 99 100 O2 Delivery Room Air Room Air Room Air Capillary Refill : Less Than 3 Seconds Blood Pressure Mean: 86 Progress Note : Progress Note Workup was grossly unremarkable except for urinary tract infection. Rapid strep and influenza were negative so further workup was pursued. Patient was not found to be septic. She did receive 2 L of IV fluid as her specific gravity on the urine was high and she felt lightheaded. She left in improved condition. Toradol was given for pain. Departure Impression Primary Impression: Urinary tract infection Qualified Codes: N39.0 - Urinary tract infection, site not specified Additional Impressions: Myalgia Hypovolemia Disposition: 01 HOME, SELF-CARE Condition: Improved Departure-Patient Inst. Decision time for Depature: 01:54 Referrals: [facility] (PCP) Primary Care Physician PLACIDO NEWBERRY (Family) Primary Care Physician Patient Instructions: Urinary Tract Infection, Adult (DC) Add. Discharge Instructions: Drink plenty of clear liquids. Complete your antibiotic as prescribed. Follow-up with your primary care provider on Tuesday or to review urine culture results. Return to care if you have worsening symptoms. For aches and pains may take Tylenol and/or ibuprofen. All discharge instructions reviewed with patient and/or family. Voiced understanding. Scripts Cephalexin (Keflex) 500 Mg Capsule 500 MG PO TID, #20 CAP Prov: SVETLANA ALFORD MD 06/05/19 SVETLANA ALFORD MD Jun 05, 2019 01:56
[2019-06-05 02:05] VITALS: BP 102/77
== END 2019-06-05 02:06 | disposition home or self-care (01) ==
LOC: EDUNIT# 21:52 → ER 21:53
DX: N39.0 Urinary tract infection, site not specified (principal); M79.18 Myalgia, other site; E86.1 Hypovolemia; Z79.51 Long term (current) use of inhaled steroids; Z82.49 Family history of ischemic heart disease and other diseases of the circulatory system
CPT/HCPCS: 36415; 80053; 81000; 82550; 84703; 85025; 86141; 86308; 87088; 87430; 87804

== ENCOUNTER 2020-04-14 23:34 | Observation (INO) | payer MEDICAID ==
[2020-04-14] VITALS: BP 122/72
[~2020-04-14] VITALS: Ht 167.7 cm; Wt 101.1 kg
[~2020-04-14 23:34] MED LIST changes: -OXYC-465 PO; +OXYC-556 PO
--- NOTE | 2020-04-14 23:40 | NUR ---
ANDREW MONTGOMERY presented to unit via wc from ED, accompanied by ashkan cano, with c/o CONTRACTIONS. ANDREW MONTGOMERY weighed, gowned, voided, and to bed. EFHM and TOCO applied, VS taken. ANDREW MONTGOMERY oriented to bed controls, call light, TV, heat, and A/C controls. above and furher assessments completed per eduardo arnold.
[2020-04-15] VITALS: BP 122/72
--- NOTE | 2020-04-15 00:04 | NUR ---
DR WOOD CALLED WITH REPORT OF PT ARRIVAL, C/O AND ASSESSMENT GIVEN. NEW ORDERS RECEIVED.
[2020-04-15] MEDS ORDERED: fentaNYL INJECTION 100 MCG/2 ML AMP ONE (00:06)
[2020-04-15] MEDS ORDERED: D5 LR IV SOLUTION 1,000 ML IV ONE (00:06)
[2020-04-15] MEDS ORDERED: fentaNYL INJECTION 100 MCG/2 ML AMP IVP ONE (00:15)
[2020-04-15 00:17] LABS: BILIRUBIN,URINE 1+ (NEGATIVE); CLARITY,URINE TURBID; COLOR,URINE BROWN; GLUCOSE, URINE (UA) NEGATIVE (NEGATIVE); KETONES,URINE NEGATIVE (NEGATIVE); LEUKOCYTE ESTERASE ,URINE 2+ (NEGATIVE); NITRITE,URINE NEGATIVE (NEGATIVE); PH,URINE 6.5 (5-9); PROTEIN,URINE 2+ (NEGATIVE)
[2020-04-15] MEDS: D5 LR IV SOLUTION 1,000 ML IV SCH ×4 (00:20→22:29)
[2020-04-15 00:30] LABS: BASOPHILS % (AUTO) 0 % (0-10); EOSINOPHILS # (AUTO) 0.2 10^3/uL (0.0-0.3); EOSINOPHILS % (AUTO) 1 % (0-10); HEMATOCRIT 33 % (35-52); HEMOGLOBIN 10.9 g/dL (11.5-16.0); LYMPHOCYTES # (AUTO) 2.4 10^3/uL (1.0-4.0); LYMPHOCYTES % (AUTO) 19 % (12-44); MEAN CORPUSCULAR HEMOGLOBIN 29 pg (25-34); MEAN CORPUSCULAR HGB CONC 33 g/dL (32-36); MEAN CORPUSCULAR VOLUME 88 fL (80-99); MEAN PLATELET VOLUME 10.6 fL (9.0-12.2); MONOCYTES # (AUTO) 0.6 10^3/uL (0.0-1.0); MONOCYTES % (AUTO) 5 % (0-12); NEUTROPHILS # (AUTO) 9.5 10^3/uL (1.8-7.8); NEUTROPHILS % (AUTO) 75 % (42-75); PLATELET COUNT 290 10^3/uL (130-400); WHITE BLOOD COUNT 12.8 10^3/uL (4.3-11.0)
[2020-04-15 00:30] LABS: BACTERIA,URINE FEW /HPF; RBC,URINE TNTC /HPF; WBC,URINE 25-50 /HPF
--- NOTE | 2020-04-15 00:45 | NUR ---
LAB RESULTS CALLED TO DR WOOD. NEW ORDERS RECEIVED.
[2020-04-15] MEDS ORDERED: ceFAZolin INJECTION 1,000 MG ONE (00:46)
[2020-04-15] MEDS ORDERED: WATER (STERILE) FOR INJECTION 10 ML ONE (00:47)
[2020-04-15] MEDS: ceFAZolin INJECTION 1,000 MG in WATER (STERILE) FOR INJECTION 10 ML IV SCH ×4 (00:59→19:00)
[2020-04-15] MEDS: fentaNYL INJECTION 100 MCG/2 ML AMP IVP PRN ×4 (02:37→23:07)
[2020-04-15 02:40] VITALS: BP 108/63
--- NOTE | 2020-04-15 07:24 | History & Physical ---
History and Physical Date Seen by Provider: Apr 15, 2020 Time Seen by Provider: 07:19 This patient is a 24-year-old 6 para 4 aborta 1 white female currently at 29 weeks gestation who presented yesterday with complaints of severe, unrelenting back/flank pain. Admit lab work including a UA was consistent with either hemorrhagic urinary tract infection or stone or both. Patient was treated with IV fluids and pain medication which controlled her symptoms through the night she continues to complain of the back pain. We will follow up the urine culture and investigate further for a stone. Patient has been started empirically on Ancef and we will continue that antibiotic pending a culture result. Patient was experiencing some issues with nausea and occasional contraction. She denied ruptured membranes or bleeding Allergies are none Medications are vitamins Medical social and surgical history is all per this patient's antepartum record HEENT exam is normal Neck is supple no lymphadenopathy Abdomen is gravid soft nontender nondistended Extremities show no clubbing or cyanosis. There is no Homans' sign. Pelvic exam is deferred Lab work is as follows Laboratory Tests Test 04/14/20 23:50 04/15/20 00:25 04/15/20 07:12 Range/Units Urine Color BROWN H Urine Clarity TURBID Urine pH 6.5 5-9 Urine Specific [place] 1.025 H 1.016-1.022 Urine Protein 2+ H NEGATIVE Urine Glucose (UA) NEGATIVE NEGATIVE Urine Ketones NEGATIVE NEGATIVE Urine Nitrite NEGATIVE NEGATIVE Urine Bilirubin 1+ H NEGATIVE Urine Urobilinogen 1.0 < = 1.0 MG/DL Urine Leukocyte Esterase 2+ H NEGATIVE Urine RBC (Auto) 3+ H NEGATIVE Urine RBC TNTC H /HPF Urine WBC 25-50 H /HPF Urine Squamous Epithelial Cells 2-5 /HPF Urine Crystals NONE /LPF Urine Bacteria FEW H /HPF Urine Casts NONE /LPF Urine Mucus NEGATIVE /LPF Urine Culture Indicated YES White Blood Count 12.8 H 4.3-11.0 10^3/uL Red Blood Count 3.71 L 3.80-5.11 10^6/uL Hemoglobin 10.9 L 11.5-16.0 g/dL Hematocrit 33 L 35-52 % Mean Corpuscular Volume 88 80-99 fL Mean Corpuscular Hemoglobin 29 25-34 pg Mean Corpuscular Hemoglobin Concent 33 32-36 g/dL Red Cell Distribution Width 12.7 10.0-14.5 % Platelet Count 290 130-400 10^3/uL Mean Platelet Volume 10.6 9.0-12.2 fL Immature Granulocyte % (Auto) 1 % Neutrophils (%) (Auto) 75 42-75 % Lymphocytes (%) (Auto) 19 12-44 % Monocytes (%) (Auto) 5 0-12 % Eosinophils (%) (Auto) 1 0-10 % Basophils (%) (Auto) 0 0-10 % Neutrophils # (Auto) 9.5 H 1.8-7.8 10^3/uL Lymphocytes # (Auto) 2.4 1.0-4.0 10^3/uL Monocytes # (Auto) 0.6 0.0-1.0 10^3/uL Eosinophils # (Auto) 0.2 0.0-0.3 10^3/uL Basophils # (Auto) 0.0 0.0-0.1 10^3/uL Immature Granulocyte # (Auto) 0.1 0.0-0.1 10^3/uL Vital Signs Date Time Temp Pulse Resp B/P (MAP) Pulse Ox O2 Delivery O2 Flow Rate FiO2 04/15/20 02:40 36.8 90 18 108/63 (78) 04/15/20 00:00 37.0 100 18 97 Room Air 04/15/20 00:00 37.0 100 18 97 Room Air Patient is afebrile and vital signs are stable Assessment and plan this is a gravid patient who presents with likely nephrolithiasis and/or urinary tract infection also early Pyelo. She is started empirically on Ancef and will continue that antibiotic pending culture. We are straining her urine and we will obtain a CT of the abdomen and pelvis to evaluate for nephrolithiasis or other etiology for her pain. Patient is not arcenio and there does not appear to be any compromise currently. We will continue NST every shift. Plan would be to consult urology on confirmation of a kidney/ureteral stone Nephrolithiasis Allergies and Home Medications Allergies Coded Allergies: NKANo Known Allergies (Verified Allergy, Unknown, 02/08/16) Home Medications Albuterol Sulfate 1 Puff Puff, 2 PUFF IH Q4H PRN for WHEEZING 1 PUFF = 90 MCG Prescribed by: CAMILA SALGADO on 04/12/19 1522 Amoxicillin/Potassium Clav 1 Each Tablet, 1 EACH PO BID Prescribed by: ORA MENDIETA on 05/14/192022 Benzonatate 100 Mg Capsule, 100 MG PO TID Prescribed by: ORA MENDIETA on 05/14/192022 Cephalexin 500 Mg Capsule, 500 MG PO TID Prescribed by: SVETLANA LEWIS on 06/05/19 0156 D-Methorphan Hb/P-Epd HCl/Bpm 118 Ml Syrup, 5 ML PO Q4H PRN for COUGH Prescribed by: CAMILA SALGADO on 04/12/19 1522 Docusate Sodium 100 Mg Capsule, 100 MG PO BID Prescribed by: LOVE SANDERS on 12/06/17 174 Fluticasone Propionate 9.9 Ml [place].susp, 1 SPRAY NS DAILY 1 SPRAY EACH NARE DAILY Prescribed by: ORA MENDIETA on 05/14/192022 Ibuprofen 800 Mg Tablet, 800 MG PO Q6H PRN for PAIN Prescribed by: LOVE SANDERS on 12/06/171748 Oxycodone HCl/Acetaminophen 1 Each Tablet, 1 EACH PO Q4H PRN for PAIN-MODERATE Prescribed by: LOVE SANDERS on 12/06/171748 Yfi714/FA/Omega3/Dha/Fish Oil 1 Each Tab.chew, 1 EACH PO DAILY, (Reported) Patient Home Medication List Home Medication List Reviewed: Yes LOVE WOOD MD Apr 15, 2020 07:24
[2020-04-15 07:37] LABS: ALANINE AMINOTRANSFERASE 16 U/L (0-55); ALBUMIN 2.9 GM/DL (3.2-4.5); ALKALINE PHOSPHATASE 96 U/L (40-136); BILIRUBIN,TOTAL 0.2 MG/DL (0.1-1.0); BUN/CREATININE RATIO 7; CALCIUM 8.1 MG/DL (8.5-10.1); CARBON DIOXIDE 22 MMOL/L (21-32); CHLORIDE 106 MMOL/L (98-107); CREATININE SERUM 0.55 MG/DL (0.60-1.30); GFR ESTIMATED > 60; GLUCOSE 103 MG/DL (70-105); POTASSIUM 3.6 MMOL/L (3.6-5.0); SODIUM 137 MMOL/L (135-145); TOTAL PROTEIN 5.7 GM/DL (6.4-8.2)
--- NOTE | 2020-04-15 07:45 | NUR ---
Pt up to bathroom. Voided 225 cc. Strained, nothing noted.
--- NOTE | 2020-04-15 08:00 | NUR ---
Pt transferred to [facility] via ambulatory in stable condition accompanied by this rn, s/o, and belongings.
[2020-04-15 10:05] VITALS: BP 106/72
--- NOTE | 2020-04-15 10:25 | Diagnostic Imaging Report ---
EXAMINATION: CT Abdomen Pelvis without contrast. TECHNIQUE: Multiple contiguous axial images were obtained through the abdomen and pelvis without the use of intravenous contrast. All CT scans use one or more of the following dose optimizing techniques: automated exposure control, MA and/or KvP adjustment based on a patient size and exam type, or iterative reconstruction. HISTORY: Suspected kidney stones. COMPARISON: None available. FINDINGS: Lung bases: The lung bases are clear. Solid organs: The liver is normal. The gallbladder is surgically absent. There is no biliary ductal dilation. Pancreas is normal. Spleen is normal. Adrenal glands are normal. There is a 0.5 cm calculus within the distal right ureter which results in mild right hydronephrosis and hydroureter (series 2 image 92). There are multiple additional nonobstructing bilateral renal calculi which measure up to 0.5 cm. Bowel: The stomach and small bowel are normal without obstruction. The colon and appendix are normal. Peritoneum: There is no intraperitoneal free fluid or free air. No suspicious lymphadenopathy. Vasculature: Normal without aneurysm. Musculoskeletal: No suspicious osseous lesion or compression fracture. Pelvis: An intrauterine fetus is present in the cephalic presentation with the spine facing towards the right anterior abdomen. The placenta appears posterior. The urinary bladder is normal. IMPRESSION: 1. A 0.5 cm obstructing calculus within the distal right ureter resulting in mild right hydronephrosis and hydroureter. 2. Additional bilateral nonobstructing renal calculi measuring up to 0.5 cm. 3. An intrauterine fetus is in the cephalic presentation. Dictated by: Dictated on workstation # [id number]
--- NOTE | 2020-04-15 13:15 | NUR ---
DR. HAYS AT BEDSIDE. POC REVIEWED WITH PT. MONITORS APPLIED FOR NST. NO FURTHER NEEDS AT THIS TIME.
[2020-04-15] MEDS ORDERED: oxyCODONE/APAP 10/325MG (PERCOCET 10) TABLET PO PRN (14:00)
--- NOTE | 2020-04-15 15:20 | CONSULTATION REPORT ---
DATE OF SERVICE: 04/15/2020 ATTENDING PHYSICIAN: Richardson Chilel MD. SUMMARY: After reviewing the patient's records, interviewing her and examining her, this is a 24-year-old white lady, who has four children and now is in the second trimester. She denies any previous history of kidney stones. Denies family history of stones. She was admitted by Dr. Chilel with right-sided pain and was found by CT scan to have small stones bilaterally in the kidneys and then a 5 mm stone in the distal right ureter causing some hydro. The patient's pain seems to be controlled by medication. She is on IV fluid and antibiotics coverage. ALLERGIES: She has no known drug allergies. MEDICATIONS: She is healthy, takes no medication on a regular basis except vitamins. PAST SURGICAL HISTORY: Once had a cholecystectomy and some teeth surgery. SOCIAL HISTORY: No smoking, no alcohol and no drugs. She is single. PHYSICAL EXAMINATION: VITAL SIGNS: Per chart. GENERAL: Well-nourished, well-developed and in no acute distress at the time of my examination. HEENT: Head is normocephalic. NECK: Supple. CHEST: Clear. HEART: Regular rate and rhythm. ABDOMEN: Soft. There is a 1+ right CVA tenderness. EXTREMITIES: Lower extremity, no edema or cyanosis. NEUROLOGIC: Grossly intact. Oriented x3. IMPRESSION: 1. Right distal ureteral stone with pain and obstruction. 2. Bilateral renal stones. 3. . PLAN: Continue present management of IV fluid and IV antibiotic. The patient's stone size and appearance, has at least a 50% chance to pass on its own, so we will allow for spontaneous passage that can be done here at the hospital or at home depending on control of pain for her and then cover her with antibiotic and manage accordingly. If she develops any infection or severe problems, then we will interfere surgically depending on the situation. Job ID: [id number] DocumentID: [id number] Dictated Date: 04/15/2020 13:22:52 Honing Machine Try Out Setter Date: 04/15/2020 15:18:49 Dictated By: DOUG HAYS MD
[2020-04-15 15:50] VITALS: BP 107/58
[2020-04-15 23:02] VITALS: BP 103/61
[2020-04-15] MEDS ORDERED: ONDANSETRON 4 MG/2 ML (SDV) Z0FRAN ONE (23:47)
--- NOTE | 2020-04-15 23:48 | NUR ---
Pt. reports being nauseated & vomiting in trash, still nauseated. Called Dr. Chilel, update given & new order rc'd for Zofran 12 mg IV X1, will give.
[2020-04-16] MEDS ORDERED: ONDANSETRON 4 MG/2 ML (SDV) Z0FRAN IVP ONE
[2020-04-16] MEDS: ceFAZolin INJECTION 1,000 MG in WATER (STERILE) FOR INJECTION 10 ML IV SCH ×3 (00:49→12:07)
[2020-04-16 05:17] VITALS: BP 105/60
[2020-04-16] MEDS: D5 LR IV SOLUTION 1,000 ML IV SCH ×2 (05:17→12:02)
[2020-04-16 06:15] LABS: BASOPHILS % (AUTO) 0 % (0-10); EOSINOPHILS # (AUTO) 0.2 10^3/uL (0.0-0.3); EOSINOPHILS % (AUTO) 2 % (0-10); HEMATOCRIT 27 % (35-52); HEMOGLOBIN 8.7 g/dL (11.5-16.0); LYMPHOCYTES % (AUTO) 27 % (12-44); MEAN CORPUSCULAR HEMOGLOBIN 29 pg (25-34); MEAN CORPUSCULAR HGB CONC 32 g/dL (32-36); MEAN CORPUSCULAR VOLUME 91 fL (80-99); MEAN PLATELET VOLUME 10.4 fL (9.0-12.2); MONOCYTES # (AUTO) 0.5 10^3/uL (0.0-1.0); MONOCYTES % (AUTO) 6 % (0-12); NEUTROPHILS # (AUTO) 4.9 10^3/uL (1.8-7.8); NEUTROPHILS % (AUTO) 65 % (42-75); PLATELET COUNT 211 10^3/uL (130-400); WHITE BLOOD COUNT 7.6 10^3/uL (4.3-11.0)
--- NOTE | 2020-04-16 07:30 | Progress Note ---
Standard Progress Note Progress Notes/Assess & Plan Date Seen by a Provider: Apr 16, 2020 Time Seen by a Provider: 07:25 Progress/Assessment & Plan Patient reports persistent episodic right back/flank pain. The pain is adequately controlled with current medication. Patient is voiding well. Patient has been n.p.o. since midnight to allow for possible surgical intervention by urology this morning Vital Signs Date Time Temp Pulse Resp B/P (MAP) Pulse Ox O2 Delivery O2 Flow Rate FiO2 04/16/20 05:17 36.0 82 18 105/60 (75) 98 Room Air 04/15/20 23:02 36.0 77 18 103/61 (75) 97 Room Air 04/15/20 23:02 77 18 103/61 04/15/20 15:50 36.2 88 16 107/58 (74) 97 Room Air 04/15/20 10:05 36.1 87 16 106/72 (83) 99 Room Air I & O 04/16/20 07:00 Intake Total 3720 ml Output Total 2050 ml Balance 1670 ml Vital signs are stable. Patient is afebrile. Lab work is as follows Laboratory Tests 04/16/20 06:00 The abdomen is gravid soft nontender nondistended Extremities show no clubbing or cyanosis. There is no Homans' sign. Pelvic exam is deferred Assessment and plan hospital day #3 for patient at 29 weeks gestation with right ureteral stone and ureteral colic. Dr. Rose has been consulted and will follow up on patient today. We will continue current management pending spontaneous passage of the stone versus operative intervention by Dr. Park Patient is mildly anemic and we will follow that up and treat via my clinic Final Diagnosis Right ureteral stone LOVE WOOD MD Apr 16, 2020 07:30
[2020-04-16 08:11] VITALS: BP 99/60
[2020-04-16] MEDS: fentaNYL INJECTION 100 MCG/2 ML AMP IVP PRN (09:07)
--- NOTE | 2020-04-16 10:50 | Progress Note - Urology ---
Progress Note-Urology Progress Notes/Assess & Plan Progress/Assessment & Plan AFEBRILE, VSS. PAIN IS CONTROLLED BY PO MEDICINES. WBC DOWN, ANEMIC. OPTIONS DISCUSSED, WISHES TO GO HOME. INSTRUCTIONS GIVEN. DRINK PLENTY OF FLUIDS ESPECIALLY CAFFEINATED ONES. STRAIN ALL URINES AND SAVE ANY STONE PASSED CALL OR ED PRN. RECOMMEND PO ABX AND ANALGESIC PER DR WOOD Final Diagnosis RT URETERAL STONE DOUG HAYS MD Apr 16, 2020 10:50
[2020-04-16 11:15] VITALS: BP 98/59
[2020-04-16] MEDS ORDERED: OXYC1TAB87 PO (12:21)
[2020-04-16] MEDS ORDERED: CEPH750C9 PO (12:21)
--- NOTE | 2020-04-16 12:22 | Discharge Inst-Surgical ---
Discharge Inst-Surgical Depart Medication/Instructions New, Converted or Re-Newed RX: RX on Chart Consults/Follow Up Patient Instructions: As directed Orders & Referrals Return to clinic as scheduled for OB follow-up Return to clinic for unrelenting pain or recurrence of kidney stone symptoms Activity Activity as Tolerated: Yes Diet Discharge Diet: No Restrictions LOVE WOOD MD Apr 16, 2020 12:22
--- NOTE | 2020-04-16 12:25 | Progress Note ---
Standard Progress Note Progress Notes/Assess & Plan Date Seen by a Provider: Apr 16, 2020 Time Seen by a Provider: 12:22 Progress/Assessment & Plan Patient reports persistent episodic right back/flank pain. The pain is adequately controlled with current medication. Patient is voiding well. Rico sorensen has been n.p.o. since midnight to allow for possible surgical intervention by urology this morning Vital Signs Date Time Temp Pulse Resp B/P (MAP) Pulse Ox O2 Delivery O2 Flow Rate FiO2 04/16/20 05:17 36.0 82 18 105/60 (75) 98 Room Air 04/15/20 23:02 36.0 77 18 103/61 (75) 97 Room Air 04/15/20 23:02 77 18 103/61 04/15/20 15:50 36.2 88 16 107/58 (74) 97 Room Air 04/15/20 10:05 36.1 87 16 106/72 (83) 99 Room Air I & O 04/16/20 07:00 Intake Total 3720 ml Output Total 2050 ml Balance 1670 ml Vital signs are stable. Patient is afebrile. Lab work is as follows Laboratory Tests 04/16/20 06:00 The abdomen is gravid soft nontender nondistended Extremities show no clubbing or cyanosis. There is no Homans' sign. Pelvic exam is deferred Assessment and plan hospital day #3 for patient at 29 weeks gestation with right ureteral stone and ureteral colic. Dr. Rose has been consulted and will follow up on patient today. We will continue current management pending spontaneous passage of the stone versus operative intervention by Dr. Park Patient is mildly anemic and we will follow that up and treat via my clinic April 16, 2020 Patient continues to have right flank pain and right low back pain. She is voiding well she is tolerating oral intake well and has adequate pain control with oral medication. Patient is requesting discharge home. Dr. Rose has seen her in consult and follow-up and he agrees with discharge home for outpatient management of ureteral stone. He agrees with oral antibiotics oral pain medication and hydration Vital Signs Date Time Temp Pulse Resp B/P (MAP) Pulse Ox O2 Delivery O2 Flow Rate FiO2 04/16/20 11:15 36.1 71 12 98/59 (72) 99 Room Air 04/16/20 08:11 36.2 86 16 99/60 (73) 100 Room Air 04/16/20 05:17 36.0 82 18 105/60 (75) 98 Room Air 04/15/20 23:02 36.0 77 18 103/61 (75) 97 Room Air 04/15/20 23:02 77 18 103/61 04/15/20 15:50 36.2 88 16 107/58 (74) 97 Room Air I & O 04/16/20 07:00 Intake Total 3720 ml Output Total 2050 ml Balance 1670 ml Vital signs are stable. Patient is afebrile. Urine culture was returned as contaminated Physical exam is deferred Assessment and plan hospital day #3 in a patient at 29 weeks gestation with right ureteral stone and at times with severe ureteral colic. Pain is now adequately controlled with oral medication we will allow discharge home with empiric antibiotic pain medication and instructions for hydration and return to clinic precautions Final Diagnosis Right ureteral stone LOVE WOOD MD Apr 16, 2020 12:25
[2020-04-16] MEDS ORDERED: PNV11TAB5 PO (12:33)
--- NOTE | 2020-04-16 12:47 | NUR ---
Discharge instructions given to pt and copy provided. PHS and prescription given to pt. Pt verbalizes understanding. Pt signs that discharge instructions were given.
--- NOTE | 2020-04-16 13:00 | NUR ---
Pt discharged from unit in stable condition via wheelchair.
== END 2020-04-16 12:47 | disposition home or self-care (01) ==
LOC: WSo 23:34 → LDRP 23:36 → WSo 23:36 → LDRP 23:40 → UNDOADMOB 04-15 10:00 → LDRP 04-15 10:00 → WSo 04-15 10:00 → UNDODISOB 04-16 13:00 → EDSTATUS 04-24 14:43
PROVIDERS: ADMIT Obstetrics & Gynecology; ATTEND Obstetrics & Gynecology
DX: O62.0 Primary inadequate contractions (principal); Z3A.29 29 weeks gestation of pregnancy
CPT/HCPCS: 36415; 74176; 80053; 81000; 85025; 87088; 96361; 96374; 96375; 96376; 99211; G0378

== ENCOUNTER 2020-05-29 20:39 | Outpatient (CLI) | payer MEDICAID ==
[~2020-05-29] VITALS: Ht 170.2 cm; Wt 104.3 kg
[~2020-05-29 20:39] MED LIST changes: +CEPH750C9 PO
[2020-05-29 21:00] VITALS: BP 127/68
[2020-05-29 21:45] VITALS: BP 127/68
[2020-05-29 21:45] LABS: BILIRUBIN,URINE NEGATIVE (NEGATIVE); CLARITY,URINE SL CLOUDY; COLOR,URINE YELLOW; GLUCOSE, URINE (UA) NEGATIVE (NEGATIVE); KETONES,URINE NEGATIVE (NEGATIVE); LEUKOCYTE ESTERASE ,URINE NEGATIVE (NEGATIVE); NITRITE,URINE NEGATIVE (NEGATIVE); PROTEIN,URINE NEGATIVE (NEGATIVE)
[2020-05-29 21:58] LABS: AMORPHOUS SEDIMENT,UR FEW AMOR URATES /LPF; BACTERIA,URINE TRACE /HPF
--- NOTE | 2020-05-30 08:08 | Physician Query-Final Dx ---
COLLEEN TOLLIVER 05/30/20 0808: Clinic Account Progress/Dx Physician Query: Please give diagnosis Please include # weeks gestation Date of Service May 29, 2020 at 20:39 LOVE WOOD MD 05/30/20 1715: Clinic Account Progress/Dx DIAGNOSIS: Diagnosis FALSE labor at 35 weeks gestation COLLEEN TOLLIVER May 30, 2020 08:08 LOVE WOOD MD May 30, 2020 17:15
== END 2020-05-29 22:25 | disposition home or self-care (01) ==
LOC: WSo 20:39 → LDRP 20:40 → WSo 22:25
PROVIDERS: ATTEND Obstetrics & Gynecology
DX: O47.03 False labor before 37 completed weeks of gestation, third trimester (principal); Z3A.35 35 weeks gestation of pregnancy
CPT/HCPCS: 81000; 99213

== ENCOUNTER 2020-06-18 07:00 | Inpatient (IN) | payer MEDICAID ==
[2020-06-18] VITALS (39 sets, daily range): BP systolic 96–144; BP diastolic 55–92
[~2020-06-18] VITALS: Ht 170.1 cm; Wt 105.7 kg
[2020-06-18] MEDS ORDERED: LIDOCAINE/EPI 2% 1:200,00 (XYLOCAINE) 10 ML VIAL INJ PRN (07:45)
[2020-06-18] MEDS ORDERED: OXYTOCIN PRE-MIX DRIP 500 ML IV SCH ×3 (07:45→14:00)
[2020-06-18] MEDS ORDERED: D5 LR IV SOLUTION 1,000 ML IV SCH ×2 (07:45→08:15)
--- NOTE | 2020-06-18 08:07 | History & Physical ---
History and Physical Date Seen by Provider: Jun 18, 2020 Time Seen by Provider: 08:04 This patient is a 24-year-old 6 para 5 female admitted for induction of labor. Her has been complicated by nephro and ureteral lithiasis. She is having some back pain but did pass a stone during this after several days of observation. She denies rupture membranes or bleeding she is having contractions. Her GBS culture was negative. Allergies are none Medications are vitamins Medical social and surgical history is all per the antepartum record HEENT exam is normal Neck is supple no lymphadenopathy no thyromegaly Abdomen is gravid soft nontender nondistended Extremities show no clubbing cyanosis. There is no Homans' sign. Pelvic exam shows a cervix 3 to 4 cm dilated 70% effaced -1 station vertex pres entation anterior and soft Assessment and plan 38+ weeks gestation patient with complicated by nephrolithiasis and ureterolithiasis. Patient is admitted now for induction of labor with Pitocin and delivery management. We anticipate vaginal delivery 38+ weeks complicated by nephrolithiasis Allergies and Home Medications Allergies Coded Allergies: NKANo Known Allergies (Verified Allergy, Unknown, 02/08/16) Home Medications Cmc224/FA/Omega3/Dha/Fish Oil 1 Each Tab.chew, 1 EACH PO DAILY, (Reported) Patient Home Medication List Home Medication List Reviewed: Yes LOVE WOOD MD Jun 18, 2020 08:07
[2020-06-18 08:19] LABS: BASOPHILS % (AUTO) 0 % (0-10); EOSINOPHILS # (AUTO) 0.1 10^3/uL (0.0-0.3); EOSINOPHILS % (AUTO) 1 % (0-10); HEMATOCRIT 28 % (35-52); HEMOGLOBIN 9.2 g/dL (11.5-16.0); LYMPHOCYTES # (AUTO) 1.8 10^3/uL (1.0-4.0); LYMPHOCYTES % (AUTO) 19 % (12-44); MEAN CORPUSCULAR HEMOGLOBIN 27 pg (25-34); MEAN CORPUSCULAR HGB CONC 33 g/dL (32-36); MEAN CORPUSCULAR VOLUME 83 fL (80-99); MEAN PLATELET VOLUME 10.8 fL (9.0-12.2); MONOCYTES # (AUTO) 0.5 10^3/uL (0.0-1.0); MONOCYTES % (AUTO) 5 % (0-12); NEUTROPHILS # (AUTO) 6.9 10^3/uL (1.8-7.8); NEUTROPHILS % (AUTO) 75 % (42-75); PLATELET COUNT 289 10^3/uL (130-400); WHITE BLOOD COUNT 9.2 10^3/uL (4.3-11.0)
[2020-06-18] MEDS ORDERED: fentaNYL 2 mcg/ml BUPIVA 0.125 100 ML ONE (10:25)
[2020-06-18] MEDS ORDERED: fentaNYL INJ 100 MCG/2 ML AMP ONE (10:42)
[2020-06-18] MEDS ORDERED: BUPIVACAINE 0.25% 30 ML (SENSORCAINE) VIAL ONE (11:31)
[2020-06-18] MEDS ORDERED: LIDOCAINE PF 2% 5 ML (XYLOCAINE) VIAL ONE (11:31)
[2020-06-18] MEDS ORDERED: fentaNYL INJ 100 MCG/2 ML AMP INJ ONE (11:45)
[2020-06-18] MEDS ORDERED: NALOXONE 0.4 MG/ML 1 ML (NARCAN) VIAL IV PRN (11:45)
[2020-06-18] MEDS ORDERED: ONDANSETRON 4 MG/2 ML (SDV) Z0FRAN IV PRN (11:45)
[2020-06-18] MEDS ORDERED: LACTATED RINGERS 1,000 ML IV ONE ×2 (11:45)
[2020-06-18] MEDS ORDERED: EPIDURAL (fentaNYL 2 MCG/ML BUPIVA 0.125%)100 ML BAG EPI PRN (11:45)
[2020-06-18] MEDS ORDERED: fentaNYL 2 mcg/ml BUPIVA 0.125 100 ML EPI PRN (12:00)
[2020-06-18] MEDS ORDERED: IBUPROFEN 800 MG (MOTRIN) TAB PO ONE (13:22)
[2020-06-18] MEDS ORDERED: oxyCODONE/APAP 5/325MG (PERCOCET 5) TABLET PO PRN (14:00)
[2020-06-18] MEDS ORDERED: TETANUS,DIPTH,PERTUSS P/F (BOOSTRIX) 0.5 ML VIAL IM ONE (14:00)
[2020-06-18] MEDS ORDERED: ONDANSETRON 4 MG/2 ML (SDV) Z0FRAN IVP PRN (14:00)
[2020-06-18] MEDS ORDERED: MEASLES,MUMPS,RUBELLA 1 EA INJ SC ONE (14:00)
[2020-06-18] MEDS ORDERED: BENZOCAINE/MENTHOL (DERMOPLAST) 60 ML CAN TP PRN (14:00)
[2020-06-18] MEDS ORDERED: IBUPROFEN 800 MG (MOTRIN) TAB PO SCH (18:00)
[2020-06-18] MEDS: DOCUSATE SODIUM 100 MG (COLACE) CAP PO SCH (20:03)
[2020-06-18] MEDS: KETOROLAC 30 MG/ML VIAL IVP SCH (20:03)
--- NOTE | 2020-06-18 20:44 | OPERATIVE REPORT ---
DATE OF SERVICE: 06/18/2020 The patient delivered by term spontaneous vaginal delivery a viable male with Apgars of 9 and 9 at 1 and 5 minutes respectively, weight of 8 pounds and 13 ounces. Cord blood pH that is pending. time of 1249. The was delivered over an intact perineum under epidural analgesia. The was bulb suctioned on delivery of the head and again on completion of delivery. Umbilical cord when relatively pulseless was doubly clamped, father cut the cord, the baby was passed to mom's abdomen. Placenta delivered fairly spontaneously Marroquin. It was normal with a 3-vessel cord. The cervix, vagina, rectum, and perineum were examined and found intact, except for some very minimal superficial abrasions on the inner labia minora bilaterally. Sponge and needle counts were correct on completion of the delivery. Blood loss was around 200 mL. The patient tolerated the delivery well and remained in the LDR for recovery. The baby remained with the mom. Job ID: [id number] DocumentID: [id number] Dictated Date: 06/18/2020 16:45:10 Nurse Discharge Planner Date: 06/18/2020 20:44:08 Dictated By: LOVE WOOD MD
[2020-06-19] MEDS: KETOROLAC 30 MG/ML VIAL IVP SCH (02:25)
[2020-06-19 04:55] VITALS: BP 115/62
--- NOTE | 2020-06-19 06:50 | Anesthesia-Regional Post-Op ---
Regional Patient Condition Mental Status: Alert, Oriented x3 Circulation: Same as Pre-Op Headache: Absent Sensation: Full Recovery Motor Block: Absent Post Op Complications Complications None Follow Up Care/Instructions Patient Instructions None needed. Anesthesia/Patient Condition Patient is doing well, no complaints, stable vital signs, no apparent adverse anesthesia problems. No complications reported per nursing. JULIETH LABOY CRNA Jun 19, 2020 06:50
[2020-06-19] MEDS ORDERED: IBUPROFEN 800 MG (MOTRIN) TAB PO ONE (09:57)
[2020-06-19 10:05] VITALS: BP 123/79
[2020-06-19] MEDS: DOCUSATE SODIUM 100 MG (COLACE) CAP PO SCH ×2 (10:06→20:21)
[2020-06-19] MEDS: IBUPROFEN 800 MG (MOTRIN) TAB PO SCH ×2 (10:07→18:40)
--- NOTE | 2020-06-19 10:54 | Progress Note ---
Standard Progress Note Progress Notes/Assess & Plan Date Seen by a Provider: Jun 19, 2020 Time Seen by a Provider: 10:53 Progress/Assessment & Plan This patient is without complaint. She is ambulating, voiding, tolerating oral intake well and has good pain control. Vital Signs Date Time Temp Pulse Resp B/P (MAP) Pulse Ox O2 Delivery O2 Flow Rate FiO2 06/19/20 04:55 36.3 79 18 115/62 (79) 97 Room Air 06/18/20 20:02 37.0 79 18 111/62 (78) 98 Room Air 06/18/20 16:30 36.5 73 18 115/69 (84) 97 Room Air 06/18/20 15:05 69 20 106/69 (81) Room Air 06/18/20 14:54 36.7 72 20 110/73 (85) Room Air 06/18/20 14:39 60 20 106/70 (82) Room Air 06/18/20 14:24 68 20 111/80 (90) Room Air 06/18/20 14:09 75 20 108/68 (81) Room Air 06/18/20 13:54 81 20 104/69 (81) Room Air 06/18/20 13:39 74 20 111/70 (84) Room Air 06/18/20 13:15 89 20 96/55 (69) Room Air 06/18/20 13:00 67 20 96/55 (69) 98 Room Air 06/18/20 12:45 90 20 122/76 (91) 98 Room Air 06/18/20 12:30 78 20 121/84 (96) 98 Room Air 06/18/20 12:15 88 20 119/76 (90) 98 Room Air 06/18/20 12:00 36.3 86 20 118/85 (96) 97 Room Air 06/18/20 11:40 86 20 125/68 (87) 97 Room Air 06/18/20 11:25 100 20 126/76 (93) 97 Room Air 06/18/20 11:20 110 20 119/79 (92) 98 Room Air 06/18/20 11:15 94 20 121/79 (93) 98 Room Air 06/18/20 11:12 113 20 113/77 (89) 98 Room Air 06/18/20 11:09 82 20 117/76 (90) 98 Room Air 06/18/20 11:06 85 20 118/74 (89) 99 Room Air 06/18/20 11:03 92 20 129/82 (98) 99 Room Air 06/18/20 11:00 99 20 124/82 (96) 99 Room Air 06/18/20 10:55 97 20 118/74 (89) 99 Room Air I & O 06/19/20 07:00 Intake Total 2000 ml Balance 2000 ml Vital signs are stable. Patient is afebrile. Fundus is firm below the umbilicus and nontender. Extremities show no clubbing or cyanosis. There is no Homans' sign. Assessment and plan day #1 status post term spontaneous vaginal AB doing well. Plan is for routine convalescent care Final Diagnosis 38-week spontaneous vaginal delivery LOVE WOOD MD Jun 19, 2020 10:54
[2020-06-19] MEDS ORDERED: IBUP-1780 PO (11:00)
[2020-06-19] MEDS ORDERED: DCS100C PO (11:00)
[2020-06-19] MEDS ORDERED: OXYC1TAB87 PO (11:00)
--- NOTE | 2020-06-19 11:00 | Discharge Inst-Surgical ---
Discharge Inst-Surgical Depart Medication/Instructions New, Converted or Re-Newed RX: RX on Chart Consults/Follow Up Patient Instructions: As directed Orders & Referrals Follow Up Appt: Call to make follow up appt. for patient in 4 weeks. Activity Per routine post vaginal delivery instructions. Please call in RX to patient pharmacy. Diet as tolerated Patient may shower or tub bathe as desired. Activity Activity as Tolerated: No Diet Discharge Diet: No Restrictions LOVE WOOD MD Jun 19, 2020 11:00
[2020-06-19 18:40] VITALS: BP 102/61
[2020-06-20] VITALS: BP 98/57
[2020-06-20] MEDS: IBUPROFEN 800 MG (MOTRIN) TAB PO SCH ×2 (00:36→06:12)
[2020-06-20 08:00] VITALS: BP 121/63
--- NOTE | 2020-06-20 08:05 | Progress Note ---
Standard Progress Note Progress Notes/Assess & Plan Date Seen by a Provider: Jun 20, 2020 Time Seen by a Provider: 08:03 Progress/Assessment & Plan This patient is without complaint. She is ambulating, voiding, tolerating oral intake well and has good pain control. Vital Signs Date Time Temp Pulse Resp B/P (MAP) Pulse Ox O2 Delivery O2 Flow Rate FiO2 06/19/20 04:55 36.3 79 18 115/62 (79) 97 Room Air 06/18/20 20:02 37.0 79 18 111/62 (78) 98 Room Air 06/18/20 16:30 36.5 73 18 115/69 (84) 97 Room Air 06/18/20 15:05 69 20 106/69 (81) Room Air 06/18/20 14:54 36.7 72 20 110/73 (85) Room Air 06/18/20 14:39 60 20 106/70 (82) Room Air 06/18/20 14:24 68 20 111/80 (90) Room Air 06/18/20 14:09 75 20 108/68 (81) Room Air 06/18/20 13:54 81 20 104/69 (81) Room Air 06/18/20 13:39 74 20 111/70 (84) Room Air 06/18/20 13:15 89 20 96/55 (69) Room Air 06/18/20 13:00 67 20 96/55 (69) 98 Room Air 06/18/20 12:45 90 20 122/76 (91) 98 Room Air 06/18/20 12:30 78 20 121/84 (96) 98 Room Air 06/18/20 12:15 88 20 119/76 (90) 98 Room Air 06/18/20 12:00 36.3 86 20 118/85 (96) 97 Room Air 06/18/20 11:40 86 20 125/68 (87) 97 Room Air 06/18/20 11:25 100 20 126/76 (93) 97 Room Air 06/18/20 11:20 110 20 119/79 (92) 98 Room Air 06/18/20 11:15 94 20 121/79 (93) 98 Room Air 06/18/20 11:12 113 20 113/77 (89) 98 Room Air 06/18/20 11:09 82 20 117/76 (90) 98 Room Air 06/18/20 11:06 85 20 118/74 (89) 99 Room Air 06/18/20 11:03 92 20 129/82 (98) 99 Room Air 06/18/20 11:00 99 20 124/82 (96) 99 Room Air 06/18/20 10:55 97 20 118/74 (89) 99 Room Air I & O 06/19/20 07:00 Intake Total 2000 ml Balance 2000 ml Vital signs are stable. Patient is afebrile. Fundus is firm below the umbilicus and nontender. Extremities show no clubbing or cyanosis. There is no Homans' sign. Assessment and plan day #1 status post term spontaneous vaginal AB doing well. Plan is for routine convalescent care June 20, 2020 Patient is without complaint. She is ambulating, voiding, tolerating oral intake well and has good pain control. Vital signs are stable. Patient is afebrile. Fundus is firm below the umbilicus nontender. Extremities show no clubbing or cyanosis. No Homans' sign. Assessment and plan day #2 status post 39-week spontaneous vaginal delivery. Plan is for discharge home with follow-up in clinic Final Diagnosis 39-week spontaneous vaginal delivery LOVE WOOD MD Jun 20, 2020 08:04
[2020-06-20] MEDS: DOCUSATE SODIUM 100 MG (COLACE) CAP PO SCH (08:24)
== END 2020-06-20 10:55 | disposition home or self-care (01) | DRG 807 ==
LOC: LDRP 07:03 → WS 08:12 → LDRP 15:34
PROVIDERS: ADMIT Obstetrics & Gynecology; ATTEND Obstetrics & Gynecology
PROC: 10E0XZZ Delivery of Products of Conception, External Approach (ICD-10-PCS; principal; 2020-06-18)
PROC: 3E033VJ Introduction of Other Hormone into Peripheral Vein, Percutaneous Approach (ICD-10-PCS; 2020-06-18)
DX: O26.833 Pregnancy related renal disease, third trimester (principal); Z37.0 Single live birth; N20.0 Calculus of kidney; Z3A.38 38 weeks gestation of pregnancy
CPT/HCPCS: 36415; 85025; 86850; 86900; 86901

== ENCOUNTER 2020-08-08 17:30 | Emergency (ER) | payer MEDICAID ==
[~2020-08-08] VITALS: Ht 170.2 cm; Wt 97.5 kg
[~2020-08-08 17:30] MED LIST changes: +DCS100C PO
[2020-08-08 17:35] VITALS: BP 117/85
[2020-08-08 17:55] LABS: BILIRUBIN,URINE NEGATIVE (NEGATIVE); CLARITY,URINE CLEAR; COLOR,URINE YELLOW; GLUCOSE, URINE (UA) NEGATIVE (NEGATIVE); KETONES,URINE NEGATIVE (NEGATIVE); LEUKOCYTE ESTERASE ,URINE NEGATIVE (NEGATIVE); NITRITE,URINE NEGATIVE (NEGATIVE); PROTEIN,URINE NEGATIVE (NEGATIVE)
[2020-08-08 18:01] LABS: BACTERIA,URINE TRACE /HPF; RBC,URINE 0-2 /HPF
--- NOTE | 2020-08-08 18:03 | ED GU-Female ---
General Chief Complaint: Female Reproductive Stated Complaint: POSSIBLY /SPOTTING Nursing Triage Note: PRESENTS TO ROOM #6 VIA POV WITH C/O VAGINAL BLEEDING AND CRAMPING. STATES ON 08/07/20 SHE BEGAN TO EXPERIENCE "LIGHT PINK SPOTTING" THAT HAS PROGRESSED TO "DARK RED BLEEDING" ON THIS DAY. STATES SHE RECENTLY GAVE VAGINALLY ON 06/18/20 AND BELIEVES SHE COULD BE AT THIS TIME. 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 STATES SHE HAS ONE SCHEDULED FOR NEXT WEEK WITH DR. WOOD PT STATES YESTERDAY, ONE TIME SHE HAD "LIGHT PINK SPOTTING" ONE TIME YESTERDAY--BLOOD ON TISSUE WITH WIPING ONLY THIS STOPPED, THEN RETURNED TODAY AND IS "DARK BROWN RED BLOOD" 2 OR 3 TIMES TODAY--THIS ALSO HAS BEEN BLOOD ON TISSUE WITH WIPING ONLY. HAS NOT USED ANY PADS OR PANTI LINERS TODAY THIS IS THE FIRST BLEEDING SHE HAS HAD SINCE SHE DELIVERED. PT HAS HAD SOME VERY MILD CRAMPING IN HER LOWER ABDOMEN AND LOWER BACK NO URINARY SYMPTOMS NO FEVER NO NAUSEA/VOMITING/DIARRHEA STATES SHE HAD WHAT SHE THINKS WAS A POSITIVE HOME TEST LAST WEEK PCP: [facility] [place] FILLING STATION ATTENDANT: DR. WOOD Allergies and Home Medications Allergies Coded Allergies: NKANo Known Allergies (Verified Allergy, Unknown, 02/08/16) Home Medications Docusate Sodium 100 Mg Capsule, 100 MG PO BID Prescribed by: LOVE SANDERS on 06/19/20 1100 Ibuprofen 800 Mg Tablet, 800 MG PO Q6H Prescribed by: LOVE SANDERS on 06/19/20 1100 Oxycodone HCl/Acetaminophen 1 Each Tablet, 1 TAB PO Q4H PRN for PAIN-MODERATE (5-7) Prescribed by: LOVE SANDERS on 06/19/20 1100 Hpe884/FA/Omega3/Dha/Fish Oil 1 Each Tab.chew, 1 EACH PO DAILY, (Reported) Patient Home Medication List Home Medication List Reviewed: Yes Review of Systems Review of Systems Constitutional: no symptoms reported Respiratory: no symptoms reported Cardiovascular: no symptoms reported Genitourinary: see HPI Musculoskeletal: see HPI, back pain Skin: no symptoms reported Psychiatric/Neurological: No Symptoms Reported Endocrine: No Symptoms Reported Hematologic/Lymphatic: No Symptoms Reported Past Bjaihlv-Hsrski-Nnzexx Hx Past Med/Social Hx: Reviewed and Corrections made Patient Social History Alcohol Use: Denies Use Smoking Status: Never a Smoker 2nd Hand Smoke Exposure: No Recent Infectious Disease Expo: No Recent Hopitalizations: No Immunizations Up To Date Tetanus Booster (TDap): Unknown PED Vaccines UTD: No Date of Influenza Vaccine: Apr 25, 2020 Seasonal Allergies Seasonal Allergies: Yes Past Medical History Surgeries: Yes (tear duct surgery) Eye Surgery, Gallbladder Respiratory: No Cardiac: No Neurological: No Reproductive Disorders: Yes Female Reproductive Disorders: Ovarian Cyst Sexually Transmitted Disease: Yes (Hx of chlamydia ) HIV/AIDS: No Genitourinary: No Gastrointestinal: No Musculoskeletal: Yes Chronic Back Pain Endocrine: No HEENT: No Cancer: No Psychosocial: Yes Anxiety, Depression Integumentary: No Blood Disorders: Yes (anemia ) Adverse Reaction/Blood Tranf: No Family Medical History Asthma 19 MOTHER FH: sleep apnea 19 FATHER Hypertension 19 FATHER No Pertinent Family Hx Physical Exam Vital Signs Vital Signs - First Documented 08/08/20 17:35 Temp 36.6 Pulse 77 Resp 18 B/P (MAP) 117/85 (96) Pulse Ox 100 O2 Delivery Room Air Capillary Refill : Less Than 3 Seconds Height, Weight, BMI Height: 5'6.50" Weight: 232lbs. 0.6oz. [id number]; 33.00 BMI Method:Stated General Appearance: WD/WN, no apparent distress Cardiovascular: regular rate, rhythm, no murmur Respiratory: normal breath sounds Gastrointestinal: soft, tenderness (MILD SUPRAPUBIC TENDERNESS) Back: normal inspection, no CVA tenderness Extremities: normal inspection Neurologic/Psychiatric: field identification specialist II-XII nml as tested, no motor/sensory deficits, alert, oriented x 3 Skin: normal color, warm/dry, tattoos/piercings Progress/Results/Core Measures Suspected Sepsis Recent Fever Within 48 Hours: No Infection Criteria Present: None New/Unexplained Altered Menta: No Sepsis Screen: No Definite Risk SIRS Temperature: Pulse: 77 Respiratory Rate: 18 Blood Pressure 117 /85 Mean: 96 Results/Orders Lab Results Laboratory Tests Test 08/08/20 17:35 Range/Units Urine Color YELLOW Urine Clarity CLEAR Urine pH 7.0 5-9 Urine Specific [place] 1.020 1.016-1.022 Urine Protein NEGATIVE NEGATIVE Urine Glucose (UA) NEGATIVE NEGATIVE Urine Ketones NEGATIVE NEGATIVE Urine Nitrite NEGATIVE NEGATIVE Urine Bilirubin NEGATIVE NEGATIVE Urine Urobilinogen 0.2 < = 1.0 MG/DL Urine Leukocyte Esterase NEGATIVE NEGATIVE Urine RBC (Auto) 1+ H NEGATIVE Urine RBC 0-2 /HPF Urine WBC 2-5 /HPF Urine Squamous Epithelial Cells 5-10 /HPF Urine Crystals NONE /LPF Urine Bacteria TRACE /HPF Urine Casts NONE /LPF Urine Mucus NEGATIVE /LPF Urine Culture Indicated NO Vital Signs/I&O 08/08/20 17:35 Temp 36.6 Pulse 77 Resp 18 B/P (MAP) 117/85 (96) Pulse Ox 100 O2 Delivery Room Air Capillary Refill : Less Than 3 Seconds Blood Pressure Mean: 96 Departure Impression Primary Impression: MENSTRUAL CYCLE POST DELIVERY Disposition: 01 HOME, SELF-CARE Condition: Stable Departure-Patient Inst. Decision time for Depature: 18:05 Referrals: NO,LOCAL PHYSICIAN (PCP) Primary Care Physician LOVE WOOD MD (Family) Primary Care Physician Patient Instructions: Menstruation Add. Discharge Instructions: TYLENOL AND MOTRIN NEEDED FOR PAIN NO INTERCOURSE UNTIL YOU ARE CLEARED BY DR. WOOD KEEP YOUR APPOINTMENT NEXT WEEK WITH DR. WOOD All discharge instructions reviewed with patient and/or family. Voiced understanding. IRVIN COLLIER DO August 08, 2020 18:03
== END 2020-08-08 18:14 | disposition home or self-care (01) ==
LOC: EDUNIT# 17:30 → ER 17:33
DX: N94.6 Dysmenorrhea, unspecified (principal); G89.29 Other chronic pain; M54.9 Dorsalgia, unspecified; Z79.1 Long term (current) use of non-steroidal anti-inflammatories (NSAID); Z79.891 Long term (current) use of opiate analgesic
CPT/HCPCS: 81000; 84703; 99282

== ENCOUNTER 2020-10-10 22:22 | Emergency (ER) | payer MEDICAID ==
[~2020-10-10] VITALS: Ht 170.1 cm; Wt 100.0 kg
[~2020-10-10 22:22] MED LIST changes: -SULF1TAB35 PO; +SULF1TAB38 PO
[2020-10-10 23:07] LABS: CLARITY,URINE CLEAR; COLOR,URINE YELLOW; GLUCOSE, URINE (UA) NEGATIVE (NEGATIVE); KETONES,URINE NEGATIVE (NEGATIVE); LEUKOCYTE ESTERASE ,URINE NEGATIVE (NEGATIVE); NITRITE,URINE NEGATIVE (NEGATIVE); PROTEIN,URINE 2+ (NEGATIVE)
[2020-10-10] MEDS ORDERED: cefTRIAXone 1,000 MG VIAL IM ONE (23:15)
[2020-10-10] MEDS ORDERED: LIDOCAINE 1% INJ 20 ML 20 ML VIAL INJ ONE (23:15)
[2020-10-10] MEDS ORDERED: KETOROLAC 30 MG/ML VIAL IM ONE (23:15)
[2020-10-10 23:16] LABS: BACTERIA,URINE MODERATE /HPF
[2020-10-10 23:18] LABS: BILIRUBIN,URINE NEGATIVE (NEGATIVE)
--- NOTE | 2020-10-10 23:35 | ED Back Pain ---
General Chief Complaint: Back Problems Stated Complaint: LOWER BACK PAIN/VAG PRESSURE Nursing Triage Note: Pt ambulatory into ER with flank pain x2 hours. Says feels like the last time she had kidney stone. Source of Information: Patient Exam Limitations: No Limitations History of Present Illness Date Seen by Provider: Oct 10, 2020 Time Seen by Provider: 22:46 Initial Comments Patient to the ER by private conveyance with her significant other and chief complaint of pain and pressure down her right flank and back into her right vulval area. She associates this pain with the same pain she had when she had a kidney stone in the past. Took her 2 weeks to pass it but she did spontaneously. She is known to Dr. Hays. She has not had any surgeries. No fevers or chills dysuria hematuria or discharge. No dyspareunia. Allergies and Home Medications Allergies Coded Allergies: Efrain Known Allergies (Verified Allergy, Unknown, 02/08/16) Home Medications Cephalexin 500 Mg Tablet, 500 MG PO BID Prescribed by: SU FARRAR on 10/10/202358 Docusate Sodium 100 Mg Capsule, 100 MG PO BID Prescribed by: LOVE SANDERS on 06/19/20 1100 Hydrocodone/Acetaminophen 1 Each Tablet, 1 TAB PO Q6H PRN for PAIN-MODERATE (5- 7) Prescribed by: SU FARRAR on 10/10/202358 Ibuprofen 800 Mg Tablet, 800 MG PO Q6H Prescribed by: LOVE SANDERS on 06/19/20 1100 Ondansetron 4 Mg Tab.rapdis, 4 MG PO Q6H PRN for NAUSEA/VOMITING Prescribed by: SU FARRAR on 10/10/202358 Oxycodone HCl/Acetaminophen 1 Each Tablet, 1 TAB PO Q4H PRN for PAIN-MODERATE (5-7) Prescribed by: LOVE SANDERS on 06/19/20 1100 Zcv281/FA/Omega3/Dha/Fish Oil 1 Each Tab.chew, 1 EACH PO DAILY, (Reported) Tamsulosin HCl 0.4 Mg Cap, 0.4 MG PO DAILY Prescribed by: SU FARRAR on 10/10/202358 Patient Home Medication List Home Medication List Reviewed: Yes Review of Systems Constitutional: No chills, No diaphoresis EENTM: No ear discharge, No ear pain Respiratory: No cough, No short of breath Cardiovascular: No edema, No palpitations Gastrointestinal: No abdominal pain; nausea; No vomiting Genitourinary: No dysuria, No frequency, No hematuria All Other Systems Reviewed Negative Unless Noted: Yes Past Edkizfk-Rzklpw-Kenaiv Hx Patient Social History Tobacco Use?: No Use of E-Cig and/or Vaping dev: No Substance use?: No Alcohol Use?: No Pt feels they are or have been: No Immunizations Up To Date Tetanus Booster (TDap): Unknown PED Vaccines UTD: No Seasonal Allergies Seasonal Allergies: Yes Past Medical History Surgeries: Yes (tear duct surgery) Eye Surgery, Gallbladder Respiratory: No Cardiac: No Neurological: No Last Menstrual Period: Sep 28, 2020 Reproductive Disorders: Yes Female Reproductive Disorders: Ovarian Cyst Sexually Transmitted Disease: Yes (Hx of chlamydia ) HIV/AIDS: No Genitourinary: No Gastrointestinal: No Musculoskeletal: Yes Chronic Back Pain Endocrine: No HEENT: No Cancer: No Psychosocial: Yes Anxiety, Depression Integumentary: No Blood Disorders: Yes (anemia ) Adverse Reaction/Blood Tranf: No Family Medical History Asthma 19 MOTHER FH: sleep apnea 19 FATHER Hypertension 19 FATHER No Pertinent Family Hx Physical Exam Vital Signs Vital Signs - First Documented 10/10/20 23:24 Temp 36.6 Pulse 79 Resp 18 B/P (MAP) 118/67 (84) Pulse Ox 97 O2 Delivery Room Air Capillary Refill : Less Than 3 Seconds Height, Weight, BMI Height: 5'6.50" Weight: 232lbs. 0.6oz. 105.168116yc; 34.00 BMI Method:Stated General Appearance: Anxious, Mild Distress, Obese HEENT: Pharynx Normal, Moist Mucous Membranes Neck: Full Range of Motion, Normal Inspection Cardiovascular: Regular Rate, Rhythm, Normal Peripheral Pulses Respiratory: No Accessory Muscle Use, No Respiratory Distress Gastrointestinal: Normal Bowel Sounds, No Organomegaly, Non Tender Back: Normal Inspection, No Vertebral Tenderness, CVA Tenderness (R) Neurologic/Psychiatric: Alert, Oriented x3 Progress/Results/Core Measures Results/Orders Lab Results Laboratory Tests Test 10/10/20 22:58 Range/Units Urine Color YELLOW Urine Clarity CLEAR Urine pH 6.0 5-9 Urine Specific [place] >=1.030 1.016-1.022 Urine Protein 2+ H NEGATIVE Urine Glucose (UA) NEGATIVE NEGATIVE Urine Ketones NEGATIVE NEGATIVE Urine Nitrite NEGATIVE NEGATIVE Urine Bilirubin NEGATIVE NEGATIVE Urine Urobilinogen 1.0 < = 1.0 MG/DL Urine Leukocyte Esterase NEGATIVE NEGATIVE Urine RBC (Auto) 1+ H NEGATIVE Urine RBC 2-5 H /HPF Urine WBC 10-25 H /HPF Urine Squamous Epithelial Cells 10-25 H /HPF Urine Crystals NONE /LPF Urine Bacteria MODERATE H /HPF Urine Casts NONE /LPF Urine Mucus SMALL H /LPF Urine Culture Indicated NO My Orders Orders - SU FARRAR Ua Culture If Indicated (10/10/20 22:29) Urine Bedside (10/10/20 22:29) Ketorolac Injection (Toradol Injection) (10/10/20 23:15) Ceftriaxone (Rocephin) (10/10/20 23:15) Lidocaine 1% Inj 20 Ml (Xylocaine 1% Inj (10/10/20 23:15) Ct Abd/Pelvis Wo(Kidney Stone) (10/10/20 23:15) Ondansetron Oral Dissolve Tab (Zofran (10/10/20 23:45) Rx-Hydrocodone/Apap 5-325 Mg (Rx-Vicodin (10/11/20 00:00) Abdomen/Kub 1view (10/11/20 00:00) Vital Signs/I&O 10/10/20 10/11/20 23:24 00:36 Temp 36.6 Pulse 79 71 Resp 18 18 B/P (MAP) 118/67 (84) 121/70 Pulse Ox 97 99 O2 Delivery Room Air Room Air Blood Pressure Mean: 84 Progress Progress Note : Time: 23:35 Progress Note Patient took 800 mg of ibuprofen when the pain started at 8:00 tonight. She does not want an IV. We will give her 30 mg IM Toradol and a Rocephin 1 g shot as well as Zofran ODT. She did elect to do a CT. Diagnostic Imaging Diagonstic Imaging: CT Plain Films/CT/US/NM/MRI: abdomen, pelvis Comments Marked right hydronephrosis and hydroureter with 6 mm stone in the right UVJ. Bilateral nephrolithiasis. [facility] [place], [place] NAME: ANDREW MONTGOMERY [facility] REC#: [id number] PT STATUS: DEP ER : 1995 PHYSICIAN: SU FARRAR MD ADMIT DATE: 10/10/20/ER Signed Date of Exam:10/10/20 CT ABD/PELVIS WO(KIDNEY STONE) PROCEDURE: CT urinary tract, rule out kidney stone. TECHNIQUE: Multiple contiguous axial images were obtained through the abdomen and pelvis without the use of intravenous contrast. Auto Exposure Controls were utilized during the CT exam to meet ALARA standards for radiation dose reduction. INDICATION: Right flank pain COMPARISON: 04/15/2020 FINDINGS: The lung bases are clear. The heart is normal in size. There is no pericardial effusion. The liver demonstrates no focal lesions. Cholestatic clips are noted. The spleen appears normal. The pancreas is unremarkable. The adrenal glands appear normal. There is moderate right hydronephrosis and hydroureter. There does appear to be an obstructing stone in the distal right ureter which measures 6 mm, located about 2 cm from the ureterovesicular junction. Additional phleboliths are seen in the pelvis. There are nonobstructing calculi in the kidneys bilaterally. There is no left hydronephrosis. The appendix is normal. The bowel loops are nondistended without obstruction. There is no free fluid or free air. No acute osseous abnormality is seen. There is a sclerotic focus at the left superior pubic ramus measuring about 1.8 cm which likely represents a bone island. IMPRESSION: 1. Moderate right hydroureteronephrosis with obstructing 6 mm stone at the distal right ureter. 2. Additional nonobstructing calculi in the kidneys bilaterally. No significant changes from the preliminary report. Dictated by: Dictated on workstation # [id number] Dict: 10/11/20 0732 Trans: 10/11/20 1050 [facility] [id number] Interpreted by: OTIS YANG MD Electronically signed by: OTIS YANG MD 10/11/20 1050 Reviewed: Reviewed Night Romie Study, Reviewed by Ms Diagonstic Imaging: Xray Plain Films/CT/US/NM/MRI: abdomen, pelvis Comments [facility] [place] [place] NAME: ANDREW MONTGOMERY [facility] REC#: [id number] PT STATUS: DEP ER : 1995 PHYSICIAN: SU FARRAR MD ADMIT DATE: 10/10/20/ER Signed Date of Exam:10/11/20 ABDOMEN/KUB 1VIEW HISTORY: Right flank pain, kidney stone COMPARISON: 10/10/2020 TECHNIQUE: Frontal view of the abdomen FINDINGS: Cholecystectomy clips are noted. No distended loops of bowel are seen. There is no large collection of free air. There is a small nonobstructing calculus in the left kidney. The previously seen obstructing calculus in the right pelvis is noted. Additional phleboliths are also again seen. IMPRESSION: 1. Obstructing calculus in the right pelvis is again seen radiographically. 2. Phleboliths in the pelvis and nonobstructing left renal calculus are also identified. Dictated by: Dictated on workstation # [id number] Dict: 10/11/20 0736 Trans: 10/11/20 1050 [facility] [id number] Interpreted by: OTIS YANG MD Electronically signed by: OTIS YANG MD 10/11/20 1050 Reviewed: Reviewed by Me Departure Impression Primary Impression: Ureteral calculus Disposition: HOME, SELF-CARE Condition: Stable Departure-Patient Inst. Decision time for Depature: 23:54 Referrals: NO,LOCAL PHYSICIAN (PCP) Primary Care Physician DOUG HAYS MD Patient Instructions: Kidney Stones (DC) Add. Discharge Instructions: Cephalexin 500 mg twice a day for the next week. Flomax 1 capsule daily until you pass the kidney stone. Strain your urine to see if you can catch the kidney stone and then expect to have improvement in your symptoms over the next 1 to 2 days. If your pain is not resolved with Tylenol 1000 mg every 8 hours and/or ibuprofen 800 mg every 8 hours as well as heating pads and distraction and you can use hydrocodone. 1 tablet of hydrocodone every 6 hours as necessary for breakthrough pain to stay functional. Hydrocodone will cause drowsiness so do not mix with alcohol. Will cause constipation so use MiraLAX at least daily while you are on hydrocodone. Ondansetron/Zofran 1 tablet under the tongue every 6 hours as necessary for nausea and/or vomiting. Call Dr. Hays, urology if you have not passed the stone by Tuesday. All discharge instructions reviewed with patient and/or family. Voiced understanding. Scripts Tamsulosin HCl (Flomax) 0.4 Mg Cap 0.4 MG PO DAILY for 7 Days, #7 CAP 0 Refills Prov: SU FARRAR 10/10/20 Ondansetron (Ondansetron Odt) 4 Mg Tab.rapdis 4 MG PO Q6H PRN for NAUSEA/VOMITING, #8 TAB 0 Refills Prov: SU FARRAR 10/10/20 Hydrocodone/Acetaminophen (Hydrocodone-Acetamin 5-325 mg) 1 Each Tablet 1 TAB PO Q6H PRN for PAIN-MODERATE (5-7), #12 TAB 0 Refills Prov: SU FARRAR 10/10/20 Cephalexin (Cephalexin) 500 Mg Tablet 500 MG PO BID for 7 Days, #14 TAB 0 Refills Prov: SU FARRAR 10/10/20 Work/School Note: Family Work Note Patient Received Medical Care In the Emerg ency Department On: Oct 10, 2020 Patient Will Be Able to Return to Work/School On: Oct 13, 2020 Patient Restrictions: none Copy Copies To 1: DOUG HAYS MD, TITUS J Oct 10, 2020 23:35
[2020-10-10] MEDS ORDERED: ONDANSETRON 4 MG (ZOFRAN) ORAL DISSOLVE TAB PO ONE (23:45)
[2020-10-10] MEDS ORDERED: ACHD5005 PO (23:59)
[2020-10-10] MEDS ORDERED: ONDA4TAB11 PO (23:59)
[2020-10-10] MEDS ORDERED: CEPH500T PO (23:59)
[2020-10-10] MEDS ORDERED: TMSL.4C PO (23:59)
[2020-10-11 00:36] VITALS: BP 121/70
--- NOTE | 2020-10-11 07:40 | Diagnostic Imaging Report ---
HISTORY: Right flank pain, kidney stone COMPARISON: 10/10/2020 TECHNIQUE: Frontal view of the abdomen FINDINGS: Cholecystectomy clips are noted. No distended loops of bowel are seen. There is no large collection of free air. There is a small nonobstructing calculus in the left kidney. The previously seen obstructing calculus in the right pelvis is noted. Additional phleboliths are also again seen. IMPRESSION: 1. Obstructing calculus in the right pelvis is again seen radiographically. 2. Phleboliths in the pelvis and nonobstructing left renal calculus are also identified. Dictated by: Dictated on workstation # [id number]
--- NOTE | 2020-10-11 07:45 | Diagnostic Imaging Report ---
PROCEDURE: CT urinary tract, rule out kidney stone. TECHNIQUE: Multiple contiguous axial images were obtained through the abdomen and pelvis without the use of intravenous contrast. Auto Exposure Controls were utilized during the CT exam to meet ALARA standards for radiation dose reduction. INDICATION: Right flank pain COMPARISON: 04/15/2020 FINDINGS: The lung bases are clear. The heart is normal in size. There is no pericardial effusion. The liver demonstrates no focal lesions. Cholestatic clips are noted. The spleen appears normal. The pancreas is unremarkable. The adrenal glands appear normal. There is moderate right hydronephrosis and hydroureter. There does appear to be an obstructing stone in the distal right ureter which measures 6 mm, located about 2 cm from the ureterovesicular junction. Additional phleboliths are seen in the pelvis. There are nonobstructing calculi in the kidneys bilaterally. There is no left hydronephrosis. The appendix is normal. The bowel loops are nondistended without obstruction. There is no free fluid or free air. No acute osseous abnormality is seen. There is a sclerotic focus at the left superior pubic ramus measuring about 1.8 cm which likely represents a bone island. IMPRESSION: 1. Moderate right hydroureteronephrosis with obstructing 6 mm stone at the distal right ureter. 2. Additional nonobstructing calculi in the kidneys bilaterally. No significant changes from the preliminary report. Dictated by: Dictated on workstation # [id number]
== END 2020-10-11 00:36 | disposition home or self-care (01) ==
LOC: EDUNIT# 22:22 → ER 22:24
DX: N13.2 Hydronephrosis with renal and ureteral calculous obstruction (principal); E66.9 Obesity, unspecified; G89.29 Other chronic pain; M54.9 Dorsalgia, unspecified; Z68.34 Body mass index [BMI] 34.0-34.9, adult; Z79.891 Long term (current) use of opiate analgesic
CPT/HCPCS: 74018; 74176; 81000; 84703; 93005

== ENCOUNTER 2021-04-14 17:09 | Emergency (ER) | payer MEDICAID ==
[~2021-04-14] VITALS: Ht 167.7 cm; Wt 102.5 kg
[~2021-04-14 17:09] MED LIST changes: +ACHD5005 PO; +CEPH500T PO; +CYCL10TA25 PO; -CYCL10TA9 PO; -DCS100C PO; +DOCU-239 PO; -FLUO20CA46; +FLUO20CA48; +ONDA4TAB11 PO; +TMSL.4C PO
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
[2021-04-14] MEDS ORDERED: HYDROcodone/APAP 5 MG/325 MG (LORTAB) TAB PO ONE (18:15)
[2021-04-14] MEDS ORDERED: ACHD5005 PO (18:18)
[2021-04-14 18:22] VITALS: BP 113/81
== END 2021-04-14 18:27 | disposition home or self-care (01) ==
LOC: EDUNIT# 17:09 → ER 17:10
DX: T23.131A Burn of first degree of multiple right fingers (nail), not including thumb, initial encounter (principal); G89.29 Other chronic pain; M54.9 Dorsalgia, unspecified; X19.XXXA Contact with other heat and hot substances, initial encounter
CPT/HCPCS: 99283

== ENCOUNTER → 2021-05-08 | Outpatient (CLI) | payer MEDICAID ==
--- NOTE | 2021-05-08 17:13 | Diagnostic Imaging Report ---
EXAM: OB ULTRASOUND COMPLETE DATE: May 08, 2021. COMPARISON: June 21, 2017. INDICATION: 25-year-old female, supervision of otherwise normal . FINDINGS: Multiple grayscale sonographic images were obtained of the gravid uterus. Overview: Within the uterus there is a single living gestation in cephalic position. There is positive movement and heart motion. heart rate was identified at 149 beats per minute. The amnionic fluid volume is normal with an amniotic fluid index of . The placenta is posterior and without previa. The cervical length is 5.2 cm. growth parameters are summarized in detail on the accompanying separate chart. The approximate mean gestational age by measurements is weeks days +/- week variability. Estimated weight based on today's measurements is g. anatomic survey: There is no ventriculomegaly (the lateral ventricle measures 5.3 mm) the cerebellum, cavum septum pellucidum, falx, and cisterna magna are identified. There are no dedicated images of the spine. There is visualization of the stomach, kidneys and urinary bladder. There is no optimal provided four-chamber view of the heart. There is a three-vessel cord with an unremarkable insertion into the abdominal wall. 4 extremities are seen. The upper lip is not well seen. IMPRESSION: 1. Single living intrauterine with approximate mean gestational age of 20 weeks 4 days +/- 1.5 week. 2. No demonstrated abnormality. Limitations of the survey as above. Biometrical measurements are as follows: Biparietal 4.78 cm, age 20 weeks 4 days. Head circumference 17.82 cm, age 20 weeks 2 days. Abdominal circumference 14.91 cm, age 20 weeks 2 days. Femur length 3.50 cm, age 21 weeks 1 days. Sonographic estimate age: 20 weeks 4 days. Sonographic estimated date of delivery: 09/21/2021. Estimated Weight: 361 gm (+/- 53 gm). LMP percentile: 76%. heart rate: 149 beats per minute. number: 1 of 1. Dictated by: Dictated on workstation # [id number]
== END ==
LOC: RAD 10:00
PROVIDERS: ATTEND Nurse Practitioner Women's Health
DX: Z34.82 Encounter for supervision of other normal pregnancy, second trimester (principal); Z3A.20 20 weeks gestation of pregnancy
CPT/HCPCS: 76805

== ENCOUNTER 2021-07-30 13:55 | Outpatient (CLI) | payer MEDICAID ==
[~2021-07-30] VITALS: Ht 167.6 cm; Wt 109.3 kg
[2021-07-30 14:22] VITALS: BP 106/55
[2021-07-30 14:30] VITALS: BP 106/55
[2021-07-30 14:58] LABS: BILIRUBIN,URINE NEGATIVE (NEGATIVE); CLARITY,URINE SL CLOUDY; COLOR,URINE ORANGE; GLUCOSE, URINE (UA) NEGATIVE (NEGATIVE); KETONES,URINE NEGATIVE (NEGATIVE); LEUKOCYTE ESTERASE ,URINE TRACE (NEGATIVE); NITRITE,URINE NEGATIVE (NEGATIVE); PROTEIN,URINE 1+ (NEGATIVE)
[2021-07-30 15:10] VITALS: BP 113/64
[2021-07-30 15:18] VITALS: BP 106/55
[2021-07-30 15:28] LABS: AMORPHOUS SEDIMENT,UR FEW AMOR URATES /LPF; BACTERIA,URINE MODERATE /HPF; RBC,URINE 50-100 /HPF
[2021-07-30] MEDS ORDERED: D5 LR IV SOLUTION 1,000 ML IV SCH (15:45)
[2021-07-30] MEDS ORDERED: D5 LR IV SOLUTION 1,000 ML IV ONE (15:46)
[2021-07-30 16:30] VITALS: BP 116/71
--- NOTE | 2021-07-30 16:52 | Diagnostic Imaging Report ---
EXAMINATION: US Retroperitoneal Complete. TECHNIQUE: Multiple real-time grayscale images were obtained over the kidneys in various projections bilaterally. HISTORY: WITH HX OF KIDNEY STONES. COMPARISON: None available. FINDINGS: The right kidney demonstrates normal echogenicity and cortical thickness. The right kidney measures 11.1 x 6.1 x 5.0 cm. There is mild right hydronephrosis. There is an echogenic calculus within the right kidney measuring up to 0.8 cm. The left kidney demonstrates normal echogenicity and cortical thickness. The left kidney measures 12.0 x 5.8 x 5.3 cm. No hydronephrosis. There is a 0.8 cm left renal calculus. The urinary bladder is decompressed which limits evaluation. IMPRESSION: 1. Bilateral renal calculi. Mild right hydronephrosis. Dictated by: Dictated on workstation # [id number]
[2021-07-30 18:42] VITALS: BP 116/71
--- NOTE | 2021-07-31 08:53 | Physician Query-Final Dx ---
SHAREE,07/31/21 0853: Clinic Account Progress/Dx Physician Query: Please give diagnosis Please include # weeks gestation Date of Service July 30, 2021 at 13:55 LOVE WOOD MD 07/31/21 1003: Clinic Account Progress/Dx DIAGNOSIS: Diagnosis 31 weeks gestation with ureteral/nephrolithiasis SHAREE,MarJuly 31, 2021 08:53 LOVE WOOD MD July 31, 2021 10:03
== END 2021-07-30 18:42 | disposition home or self-care (01) ==
LOC: WSo 13:55 → LDRP 13:57 → WSo 18:42
PROVIDERS: ATTEND Obstetrics & Gynecology
DX: O26.833 Pregnancy related renal disease, third trimester (principal); O99.891 Other specified diseases and conditions complicating pregnancy; N13.30 Unspecified hydronephrosis; Z3A.31 31 weeks gestation of pregnancy
CPT/HCPCS: 76770; 81000; 84112; 87088; 96360; 96361; 99214

== ENCOUNTER 2021-08-24 13:35 | Emergency (ER) | payer MEDICAID ==
[~2021-08-24] VITALS: Ht 167.7 cm; Wt 75.0 kg
--- NOTE | 2021-08-24 15:01 | ED General ---
General Chief Complaint: Cough/Cold/Flu Symptoms Stated Complaint: CONGESTION,NOSE BLEED, JAW PAIN Nursing Triage Note: PT AMB TO TRIAGE WITH COMPLAINT OF HEAD, FACIAL, AND JAW PAIN. WAS TOLD BY EMIR LAST WEEK THAT SHE HAD A HEADCOLD. STATES PAIN IS WORSENING AND HAD NOSEBLEED TODAY. PT IS , DUE BEGINNING OF SEPTEMBER. (CHIQUITA MASSEY) History of Present Illness Date Seen by Provider: August 24, 2021 Time Seen by Provider: 14:20 Initial Comments 25 year old 35.2week gestation female presents to the ED via private vehicle for sinus congestion, Jaw pain, and nose bleeds. She reports having chronic seasonal allergies that often lead into sinus allergies. She reports that her symptoms began as allergires on 05/17/21. Since her symptoms began she has had increased sinus pressure and jaw pain along with increased, thick nasal drainage. She was sen at [facility] last week and given flonase to take along with tylenol and benadryl for her symptoms. She doesn;t think they have been helping her symptoms. She reports feeling febrile but has not taken her temperature at home. She has also been having a cough and sore throat. She has not been vaccinated against covid. She denies recent sick exposures that she is aware of. (CHIQUITA MASSEY) Allergies and Home Medications Allergies Coded Allergies: NKANo Known Allergies (Verified Allergy, Unknown, 02/08/16) Patient Home Medication List Home Medication List Reviewed: Yes (JADIEL GIRALDO MD) Amoxicillin (Amoxicillin) 875 Mg Tablet, 875 MG PO BID Prescribed by: JADIEL GIRALDO on 08/24/21 1517 Itb635/FA/Omega3/Dha/Fish Oil ( Gummies) 1 Each Tab.chew, 1 EACH PO DAILY, (Reported) Entered as Reported by: NICHOLAS HERNANDEZ on 10/17/17 1419 Tamsulosin HCl (Flomax) 0.4 Mg Cap, 0.4 MG PO DAILY Prescribed by: SU FARRAR on 10/10/20 7378 Review of Systems Review of Systems Constitutional: chills, fever; No malaise, No weakness EENTM: epistaxis, throat pain, other (jaw pain); No hearing loss, No vision lo ss Respiratory: cough; No short of breath Cardiovascular: No chest pain, No palpitations Gastrointestinal: No abdominal pain, No diarrhea, No nausea, No vomiting Genitourinary: No dysuria; frequency (normal); No hematuria Musculoskeletal: No back pain, No muscle stiffness, No muscle weakness Skin: No change in color, No lesions, No rash Psychiatric/Neurological: No Symptoms Reported Hematologic/Lymphatic: No Symptoms Reported Immunological/Allergic: no symptoms reported (CHIQUITA MASSEY) Past Opthagm-Fpzhym-Yrfhsh Hx Patient Social History Tobacco Use?: No Use of E-Cig and/or Vaping dev: No Substance use?: No Alcohol Use?: No Pt feels they are or have been: No (CHIQUITA MASSEY) Immunizations Up To Date Tetanus Booster (TDap): Unknown PED Vaccines UTD: No (CHIQUITA MASSEY) Seasonal Allergies Seasonal Allergies: Yes (CHIQUITA MASSEY) Past Medical History Surgeries: Yes (tear duct surgery) Eye Surgery, Gallbladder Respiratory: No Cardiac: No Neurological: No Reproductive Disorders: Yes Female Reproductive Disorders: Ovarian Cyst Sexually Transmitted Disease: Yes (Hx of chlamydia ) HIV/AIDS: No Genitourinary: No Gastrointestinal: No Musculoskeletal: Yes Chronic Back Pain Endocrine: No HEENT: No Cancer: No Psychosocial: Yes Anxiety, Depression Integumentary: No Blood Disorders: Yes (anemia ) Adverse Reaction/Blood Tranf: No (CHIQUITA MASSEY) Family Medical History Asthma 19 MOTHER FH: sleep apnea 19 FATHER Hypertension 19 FATHER No Pertinent Family Hx (CHIQUITA MASSEY) Physical Exam Vital Signs Vital Signs - First Documented 08/24/21 14:00 Temp 36.8 Pulse 77 Resp 16 B/P (MAP) 112/76 (88) Pulse Ox 98 O2 Delivery Room Air (JADIEL GIRALDO MD) Vital Signs Capillary Refill : Less Than 3 Seconds (CHIQUITA MASSEY) Height, Weight, BMI Height: 5'6.50" Weight: 232lbs. 0.6oz. 105.822095oj; 26.00 BMI Method:Stated General Appearance: WD/WN, Other (appears tired) Eyes: Bilateral Eye Normal Inspection, Bilateral Eye PERRL, Bilateral Eye EOMI HEENT: PERRL/EOMI, TMs Normal; No Moist Mucous Membranes; Other (bilateral jaw pain) Neck: Normal Inspection, Supple Respiratory: Chest Non Tender, Lungs Clear, No Accessory Muscle Use, No Respiratory Distress, Rhonci (minimal at the end of inspiration and beginning of expiration in bilateral lower lobes.) Cardiovascular: Regular Rate, Rhythm, No Murmur, Normal Peripheral Pulses Gastrointestinal: Normal Bowel Sounds; No Tenderness; Other (abdominal bump due to is present) Back: Normal Inspection, No Vertebral Tenderness Extremity: No Calf Tenderness, No Pedal Edema Neurologic/Psychiatric: Alert, Oriented x3, No Motor/Sensory Deficits Skin: Normal Color, Warm/Dry Lymphatic: No Adenopathy (CHIQUITA MASSEY) Progress/Results/Core Measures Suspected Sepsis SIRS Temperature: Pulse: 77 Respiratory Rate: 16 Blood Pressure 112 /76 Mean: 88 (CHIQUITA MASSEY) Results/Orders Lab Results Laboratory Tests Test 08/24/21 14:42 Range/Units SARS-CoV-2 RNA (RT-PCR) Not Detected Not Detecte (JADIEL GIRALDO MD) My Orders Orders - JADIEL GIRALDO MD Covid 19 Inhouse Test (08/24/21 14:32) Isolation Central Supply Req (08/24/21 14:32) (JADIEL GIRALDO MD) Vital Signs/I&O 08/24/21 08/24/21 14:00 15:28 Temp 36.8 36.8 Pulse 77 77 Resp 16 16 B/P (MAP) 112/76 (88) 112/76 Pulse Ox 98 98 O2 Delivery Room Air Room Air (JADIEL GIRALDO MD) Vital Signs/I&O Capillary Refill : Less Than 3 Seconds (CHIQUITA MASSEY) Blood Pressure Mean: 88 Progress Note : Time: 15:19 Progress Note Patient seen and examined by me, 35-week 2/ female chief complaint of sinus congestion, facial pain, subjective fever, mild headache and a nosebleed this morning. Symptoms have been ongoing almost 10 to 12 days. She has been using kwin-rza-ulaefej decongestants and Flonase since last Tuesday. Symptoms are not improving. She woke up with a nosebleed this morning. She presents for further evaluation and possible antibiotics. She does have a history of sinus infections in the past. She is getting care. She is a non-smoker. I have reviewed and agree with medical students documentation of his history and physical examination. Exam is pertinent for tenderness over the frontal and maxillary sinus more on the left. Patient has a little trismus with jaw pain bilaterally. No s ignificant lymphadenopathy. No discrete dental tenderness or gingival swelling, erythema or obvious abscess or ulcer. TMs have effusions bilaterally. Lungs are clear. She appears well-hydrated. Vital signs are stable. Discussed antibiotics with the patient. We will start her on amoxicillin for a week and continue her Flonase. Follow-up with her BODY TECHNICIAN/PAINTER/primary care provider. She is comfortable with the plan of care. All questions are sought and answered. (JADIEL GIRALDO MD) Departure Impression Primary Impression: Sinusitis Qualified Codes: J01.10 - Acute frontal sinusitis, unspecified Disposition: HOME, SELF-CARE Condition: Stable Departure-Patient Inst. Decision time for Depature: 15:15 (JADIEL GIRALDO MD) Referrals: LOVE WOOD MD (PCP/Family) Primary Care Physician Patient Instructions: Sinusitis, Adult ED Add. Discharge Instructions: Drink plenty of fluids to stay well-hydrated. Take the antibiotics twice daily for 7 days. Continue the Flonase and Tylenol as you have been. Follow-up with your OB doctor as scheduled. Return to the emergency department for any new, concerning or emergent complaints. Scripts Amoxicillin (Amoxicillin) 875 Mg Tablet 875 MG PO BID, #14 TAB Prov: JADIEL GIRALDO MD 08/24/21 Verification and Attestation of Medical Student E/M Service A medical student performed and documented this service in my presence. I reviewed and verified all information documented by the medical student and made modifications to such information, when appropriate. I personally performed the physical exam and medical decision making. Jadiel Giraldo, August 24, 2021,15:21 (JADIEL GIRALDO MD) CHIQUITA MASSEY August 24, 2021 15:01 JADIEL GIRALDO MD August 24, 2021 15:19
[2021-08-24] MEDS ORDERED: AMOX875T2 PO (15:17)
[2021-08-24 15:28] VITALS: BP 112/76
== END 2021-08-24 15:28 | disposition home or self-care (01) ==
LOC: EDUNIT# 13:35 → ER 13:37
DX: O99.513 Diseases of the respiratory system complicating pregnancy, third trimester (principal); J01.10 Acute frontal sinusitis, unspecified; Z20.822 Contact with and (suspected) exposure to COVID-19; Z3A.35 35 weeks gestation of pregnancy
CPT/HCPCS: 87636

== ENCOUNTER 2021-08-29 19:41 | Outpatient (CLI) | payer MEDICAID ==
[~2021-08-29] VITALS: Ht 167.7 cm; Wt 109.0 kg
[~2021-08-29 19:41] MED LIST changes: +AMOX875T2 PO
[2021-08-29 20:09] VITALS: BP 119/63
[2021-08-29 20:14] LABS: BILIRUBIN,URINE 1+ (NEGATIVE); CLARITY,URINE CLOUDY; COLOR,URINE YELLOW; GLUCOSE, URINE (UA) NEGATIVE (NEGATIVE); KETONES,URINE TRACE (NEGATIVE); LEUKOCYTE ESTERASE ,URINE TRACE (NEGATIVE); NITRITE,URINE NEGATIVE (NEGATIVE); PROTEIN,URINE 1+ (NEGATIVE)
[2021-08-29] MEDS ORDERED: D5 LR IV SOLUTION 1,000 ML IV ONE ×2 (20:15→20:30)
[2021-08-29 20:17] VITALS: BP 119/63
[2021-08-29 20:18] VITALS: BP 119/63
[2021-08-29 20:23] LABS: BACTERIA,URINE FEW /HPF
[2021-08-29 20:29] LABS: BASOPHILS % (AUTO) 0 % (0-10); EOSINOPHILS # (AUTO) 0.1 10^3/uL (0.0-0.3); EOSINOPHILS % (AUTO) 1 % (0-10); HEMATOCRIT 27 % (35-52); HEMOGLOBIN 8.5 g/dL (11.5-16.0); LYMPHOCYTES % (AUTO) 18 % (12-44); MEAN CORPUSCULAR HEMOGLOBIN 25 pg (25-34); MEAN CORPUSCULAR HGB CONC 32 g/dL (32-36); MEAN CORPUSCULAR VOLUME 80 fL (80-99); MEAN PLATELET VOLUME 10.2 fL (9.0-12.2); MONOCYTES # (AUTO) 0.6 10^3/uL (0.0-1.0); MONOCYTES % (AUTO) 5 % (0-12); NEUTROPHILS # (AUTO) 8.3 10^3/uL (1.8-7.8); NEUTROPHILS % (AUTO) 75 % (42-75); PLATELET COUNT 362 10^3/uL (130-400)
[2021-08-29 20:47] LABS: ALBUMIN 2.9 GM/DL (3.2-4.5); POTASSIUM 3.6 MMOL/L (3.6-5.0)
[2021-08-29 20:48] LABS: CALCIUM 8.6 MG/DL (8.5-10.1)
[2021-08-29 20:50] LABS: TOTAL PROTEIN 6.4 GM/DL (6.4-8.2)
[2021-08-29 20:51] LABS: BILIRUBIN,TOTAL 0.4 MG/DL (0.1-1.0)
[2021-08-29 20:53] LABS: CREATININE SERUM 0.59 MG/DL (0.60-1.30)
[2021-08-29 21:00] VITALS: BP 109/55
[2021-08-29 22:00] VITALS: BP 123/72
[2021-08-29 22:25] VITALS: BP 119/76
[2021-08-29] MEDS: D5 LR IV SOLUTION 1,000 ML IV SCH (22:25)
[2021-08-30 06:21] VITALS: BP 110/73
[2021-08-30] MEDS: D5 LR IV SOLUTION 1,000 ML IV SCH (06:21)
[2021-08-30 07:36] VITALS: BP 97/61
[2021-08-30 09:16] VITALS: BP 97/61
--- NOTE | 2021-08-31 09:05 | Physician Query-Final Dx ---
,08/31/21 0905: Clinic Account Progress/Dx Physician Query: Please give diagnosis Please include # weeks gestation Date of Service Aug 29, 2021 at 19:41 LOVE WOOD MD 09/01/21 1910: Clinic Account Progress/Dx DIAGNOSIS: Diagnosis False labor at 36 weeks gestation ,MarAug 31, 2021 09:05 LOVE WOOD MD Sep 01, 2021 19:10
== END 2021-08-30 09:16 | disposition home or self-care (01) ==
LOC: WSo 19:41 → LDRP 19:42 → WSo 08-30 09:16
PROVIDERS: ATTEND Obstetrics & Gynecology
DX: Z34.90 Encounter for supervision of normal pregnancy, unspecified, unspecified trimester (principal)
CPT/HCPCS: 36415; 80053; 81000; 82570; 83615; 84156; 85025; 87088

== ENCOUNTER 2021-09-03 10:26 | Inpatient (IN) | payer MEDICAID ==
[2021-09-03] VITALS (35 sets, daily range): BP systolic 101–136; BP diastolic 59–78
[~2021-09-03] VITALS: Ht 167.7 cm; Wt 110.0 kg
[2021-09-03] MEDS ORDERED: D5 LR IV SOLUTION 1,000 ML IV SCH (10:45)
[2021-09-03] MEDS ORDERED: FERR-84 PO (11:39)
[2021-09-03] MEDS ORDERED: LACTATED RINGERS 1,000 ML IV ONE (11:51)
[2021-09-03] MEDS ORDERED: fentaNYL 2 mcg/ml BUPIVA 0.125 100 ML ONE (11:51)
[2021-09-03 11:54] LABS: BASOPHILS % (AUTO) 0 % (0-10); EOSINOPHILS % (AUTO) 0 % (0-10); HEMATOCRIT 27 % (35-52); HEMOGLOBIN 8.6 g/dL (11.5-16.0); LYMPHOCYTES # (AUTO) 1.5 10^3/uL (1.0-4.0); LYMPHOCYTES % (AUTO) 18 % (12-44); MEAN CORPUSCULAR HEMOGLOBIN 25 pg (25-34); MEAN CORPUSCULAR HGB CONC 32 g/dL (32-36); MEAN CORPUSCULAR VOLUME 80 fL (80-99); MEAN PLATELET VOLUME 10.1 fL (9.0-12.2); MONOCYTES # (AUTO) 0.4 10^3/uL (0.0-1.0); MONOCYTES % (AUTO) 5 % (0-12); NEUTROPHILS # (AUTO) 6.3 10^3/uL (1.8-7.8); NEUTROPHILS % (AUTO) 76 % (42-75); PLATELET COUNT 311 10^3/uL (130-400); WHITE BLOOD COUNT 8.3 10^3/uL (4.3-11.0)
--- NOTE | 2021-09-03 12:18 | Discharge Inst-Surgical ---
Discharge Inst-Surgical Depart Medication/Instructions New, Converted or Re-Newed RX: Transmitted to Pharmacy Consults/Follow Up Patient Instructions: As directed Orders & Referrals Follow Up Appt: Call to make follow up appt. for patient in 4 weeks. Activity Per routine post vaginal delivery instructions. Prescriptions were sent to patient's pharmacy from my office Diet as tolerated Patient may shower or tub bathe as desired. Activity Activity as Tolerated: No Diet Discharge Diet: No Restrictions LOVE WOOD MD Sep 03, 2021 12:18
--- NOTE | 2021-09-03 12:21 | History & Physical ---
History and Physical Date Seen by Provider: Sep 03, 2021 Time Seen by Provider: 12:19 This patient is a 25-year-old 6 para 4 A1 female who was seen in my office on this date for follow-up OB appointment at 36 and 6 weeks gestation. Earlier this week she had been 3 cm dilating she complains of regular persistent contractions. She is found to be 4 cm dilated she does have a history of early deliveries and rapid labors. She was sent to labor and delivery for evaluation she has now progressed to 5 cm dilation. Her GBS culture was negative she has had no other problems with this . Plan now is for expectant managementWith anticipation of the vaginal delivery Allergies are none Medications are vitamins Medical social and surgical histories are per the antepartum record HEENT exam is normal Neck is supple no lymphadenopathy no thyromegaly Abdomen is gravid soft nontender nondistended Extremities show no clubbing or cyanosis. There is no Homans' sign. Pelvic exam, last checked by the labor delivery nurse shows cervix 5 cm dilated 85 to 90% effaced vertex presentationSomewhat ballotable. Laboratory Tests Test 09/03/21 11:15 Range/Units White Blood Count 8.3 4.3-11.0 10^3/uL Red Blood Count 3.39 L 3.80-5.11 10^6/uL Hemoglobin 8.6 L 11.5-16.0 g/dL Hematocrit 27 L 35-52 % Mean Corpuscular Volume 80 80-99 fL Mean Corpuscular Hemoglobin 25 25-34 pg Mean Corpuscular Hemoglobin Concent 32 32-36 g/dL Red Cell Distribution Width 14.4 10.0-14.5 % Platelet Count 311 130-400 10^3/uL Mean Platelet Volume 10.1 9.0-12.2 fL Immature Granulocyte % (Auto) 1 % Neutrophils (%) (Auto) 76 H 42-75 % Lymphocytes (%) (Auto) 18 12-44 % Monocytes (%) (Auto) 5 0-12 % Eosinophils (%) (Auto) 0 0-10 % Basophils (%) (Auto) 0 0-10 % Neutrophils # (Auto) 6.3 1.8-7.8 10^3/uL Lymphocytes # (Auto) 1.5 1.0-4.0 10^3/uL Monocytes # (Auto) 0.4 0.0-1.0 10^3/uL Eosinophils # (Auto) 0.0 0.0-0.3 10^3/uL Basophils # (Auto) 0.0 0.0-0.1 10^3/uL Immature Granulocyte # (Auto) 0.0 0.0-0.1 10^3/uL Assessment and plan 36-6/7 weeks gestation and a grand multipara who is in early labor. At this point she is in active labor and we will manage expectantly and anticipate a vaginal delivery.She will be allowed an epidural 36-6/7 weeks gestation and labor Allergies and Home Medications Allergies Coded Allergies: NKANo Known Allergies (Verified Allergy, Unknown, 02/08/16) Patient Home Medication List Home Medication List Reviewed: Yes Ferrous Sulfate (Iron) 325 Mg (65 Mg Iron) Tablet, 325 MG PO DAILY, (Reported) Entered as Reported by: ROSE MARY FRENCH on 09/03/21 1139 Last Action: New Order Tsa301/FA/Omega3/Dha/Fish Oil ( Gummies) 1 Each Tab.chew, 1 EACH PO DAILY, (Reported) Entered as Reported by: NICHOLAS HERNANDEZ on 10/17/17 1419 Last Action: Reviewed Discontinued Medications Amoxicillin (Amoxicillin) 875 Mg Tablet, 875 MG PO BID Discontinued Reason: No Longer Taking Prescribed by: JADIEL GIRALDO on 08/24/21 1517 Last Action: Discontinued Tamsulosin HCl (Flomax) 0.4 Mg Cap, 0.4 MG PO DAILY Discontinued Reason: No Longer Taking Prescribed by: SU FARRAR on 10/10/20 [id number] LOVE WOOD MD Sep 03, 2021 12:21
[2021-09-03] MEDS ORDERED: LACTATED RINGERS 1,000 ML IV SCH (13:15)
[2021-09-03] MEDS ORDERED: diphenhydrAMINE 50 MG/ML INJ (BENADRYL) IV PRN (13:15)
[2021-09-03] MEDS ORDERED: METOCLOPRAMIDE INJ 10 MG/2 ML (REGLAN) IV PRN (13:15)
[2021-09-03] MEDS ORDERED: ONDANSETRON 4 MG/2 ML (SDV) Z0FRAN IV PRN (13:15)
[2021-09-03] MEDS ORDERED: EPIDURAL (fentaNYL 2 MCG/ML BUPIVA 0.125%)100 ML BAG EPI SCH (13:15)
[2021-09-03] MEDS ORDERED: NALOXONE 0.4 MG/ML 1 ML (NARCAN) VIAL IV PRN ×3 (13:15→16:30)
[2021-09-03] MEDS ORDERED: OXYTOCIN PRE-MIX DRIP 500 ML IV ONE (13:32)
[2021-09-03] MEDS ORDERED: OXYTOCIN PRE-MIX DRIP 500 ML IV SCH ×2 (13:45→16:30)
[2021-09-03] MEDS: CATHETER FLUSH 10 ML SYR IV SCH ×2 (14:00→22:00)
[2021-09-03] MEDS ORDERED: ONDANSETRON 4 MG/2 ML (SDV) Z0FRAN IVP PRN (16:30)
[2021-09-03] MEDS ORDERED: oxyCODONE/APAP 5/325MG (PERCOCET 5) TABLET PO PRN (16:30)
[2021-09-03] MEDS ORDERED: TETANUS,DIPTH,PERTUSS P/F (BOOSTRIX) 0.5 ML VIAL IM ONE (16:30)
[2021-09-03] MEDS ORDERED: BENZOCAINE/MENTHOL (DERMOPLAST) 56 ML CAN TP PRN (16:30)
[2021-09-03] MEDS: KETOROLAC 30 MG/ML VIAL IVP SCH (19:22)
[2021-09-03] MEDS: DOCUSATE SODIUM 100 MG (COLACE) CAP PO SCH (21:37)
[2021-09-04 01:11] VITALS: BP 106/61
[2021-09-04] MEDS: CATHETER FLUSH 10 ML SYR IV SCH (01:11)
[2021-09-04] MEDS: KETOROLAC 30 MG/ML VIAL IVP SCH (01:11)
--- NOTE | 2021-09-04 01:57 | OPERATIVE REPORT ---
DATE OF SERVICE: 09/03/2021 DELIVERY NOTE The patient delivered by spontaneous vaginal delivery at 36 and 6/7th weeks' gestation, a viable male with Apgars of 8 and 9 at 1 and 5 minutes respectively, weight of 7 pounds 2 ounces, time of 1545. The infant delivered over an intact perineum under epidural analgesia. The was bulb suctioned on delivery of the head and again on completion of delivery, umbilical cord was doubly clamped, father cut the cord, the baby was passed to mom's abdomen. Cord bloods were obtained. The placenta delivered spontaneously Marroquin. It was normal with a 3-vessel cord. The cervix, vagina, rectum, and perineum were examined and found intact. Sponge and needle counts were correct after completion of delivery. Blood loss was around 300 mL. The patient tolerated the procedure well and remained in the LDR for recovery. The baby remained with the mom. Job ID: [id number] DocumentID: [id number] Dictated Date: 09/03/2021 16:27:37 [place] Date: 09/04/2021 01:17:19 Dictated By: LOVE WOOD MD
[2021-09-04 04:00] VITALS: BP 104/66
[2021-09-04] MEDS ORDERED: IBUPROFEN 800 MG (MOTRIN) TAB PO ONE ×2 (06:14→12:47)
[2021-09-04] MEDS: IBUPROFEN 800 MG (MOTRIN) TAB PO SCH ×2 (06:23→12:48)
--- NOTE | 2021-09-04 08:30 | Progress Note ---
Standard Progress Note Progress Notes/Assess & Plan Date Seen by a Provider: Sep 04, 2021 Time Seen by a Provider: 08:30 Progress/Assessment & Plan This patient is without complaint. She is ambulating, voiding, tolerating oral intake well and has good pain control. Patient is requesting discharge home. Vital Signs Date Time Temp Pulse Resp B/P (MAP) Pulse Ox O2 Delivery O2 Flow Rate FiO2 09/04/21 04:00 36.6 70 18 104/66 (79) 98 Room Air 09/04/21 01:11 36.5 76 18 106/61 (76) 99 Room Air 09/03/21 21:37 36.7 71 18 117/71 (86) 99 Room Air 09/03/21 19:02 71 18 113/73 (86) Room Air 09/03/21 18:47 80 18 114/77 (89) Room Air 09/03/21 18:32 70 18 113/69 (84) Room Air 09/03/21 18:17 88 18 117/71 (86) Room Air 09/03/21 18:02 82 18 119/71 (87) Room Air 09/03/21 17:47 78 18 116/69 (85) Room Air 09/03/21 17:32 77 18 114/73 (87) Room Air 09/03/21 17:17 76 18 112/72 (85) Room Air 09/03/21 17:02 36.0 73 18 113/70 (84) Room Air 09/03/21 16:47 63 18 106/61 (76) Room Air 09/03/21 16:32 36.5 76 18 118/60 (79) Room Air 09/03/21 16:17 36.1 73 18 120/69 (86) Room Air 09/03/21 16:02 80 18 112/67 (82) Room Air 09/03/21 15:50 36.5 09/03/21 15:47 88 18 118/71 (87) Room Air 09/03/21 15:34 79 18 123/72 (89) 98 Room Air 09/03/21 15:17 81 18 112/76 (88) 99 Room Air 09/03/21 15:02 84 18 105/71 (82) 99 Room Air 09/03/21 14:50 36.4 101 18 114/77 (89) 99 Room Air 09/03/21 14:33 93 18 112/76 (88) 99 Room Air 09/03/21 14:17 91 18 108/70 (83) 99 Room Air 09/03/21 14:03 102 18 101/61 (74) 97 Room Air 09/03/21 13:48 91 18 110/66 (81) 99 Room Air 09/03/21 13:28 101 18 112/69 (83) 98 Room Air 09/03/21 13:24 95 18 112/67 (82) 98 Room Air 09/03/21 13:20 106 18 112/78 (89) 99 Room Air 09/03/21 13:11 122 18 111/59 (76) 98 Room Air 09/03/21 13:05 129 18 122/64 (83) 99 Room Air 09/03/21 13:02 112 18 136/67 (90) 99 Room Air 09/03/21 12:59 91 18 132/71 (91) Room Air 09/03/21 12:56 92 18 120/72 (88) 97 Room Air 09/03/21 12:53 100 18 130/72 (91) Room Air 09/03/21 12:50 90 18 131/69 (89) 98 Room Air 09/03/21 11:31 36.4 122 18 97 Room Air 09/03/21 10:50 36.4 122 18 119/67 (84) Room Air I & O 09/04/21 07:00 Intake Total 2500 ml Balance 2500 ml Vital signs are stable. Patient is afebrile. Fundus is firm below the umbilicus nontender. Extremities show no clubbing cyanosis. There is no Homans' sign. Assessment and plan day #1 status post return spontaneous vaginal delivery at 36+ weeks gestation. Plan is for discharge home with follow-up in clinic. If baby is not discharged home this discharge be held till tomorrow Final Diagnosis 36-week spontaneous vaginal delivery LOVE WOOD MD Sep 04, 2021 08:30
[2021-09-04 08:45] VITALS: BP 112/57
[2021-09-04] MEDS: DOCUSATE SODIUM 100 MG (COLACE) CAP PO SCH (08:49)
[2021-09-04 12:39] VITALS: BP 106/64
--- NOTE | 2021-09-04 13:09 | Anesthesia-Regional Post-Op ---
Regional Patient Condition Mental Status: Alert, Oriented x3 Circulation: Same as Pre-Op Headache: Absent Sensation: Full Recovery Motor Block: Absent Post Op Complications Complications None Follow Up Care/Instructions Patient Instructions None needed. Anesthesia/Patient Condition Patient is doing well, no complaints, stable vital signs, no apparent adverse anesthesia problems. No complications reported per nursing. IRAJ AVELAR CRNA Sep 04, 2021 13:09
[2021-09-04 16:47] VITALS: BP 115/70
== END 2021-09-04 18:10 | disposition home or self-care (01) | DRG 807 ==
LOC: LDRP 10:26
PROVIDERS: ADMIT Obstetrics & Gynecology; ATTEND Obstetrics & Gynecology
PROC: 10E0XZZ Delivery of Products of Conception, External Approach (ICD-10-PCS; principal; 2021-09-03)
DX: O60.14X0 Preterm labor third trimester with preterm delivery third trimester, not applicable or unspecified (principal); Z37.0 Single live birth; Z3A.36 36 weeks gestation of pregnancy; Z28.310 Unvaccinated for COVID-19
CPT/HCPCS: 36415; 85025; 86780; 86850; 86900; 86901

== ENCOUNTER 2021-11-08 01:42 | Emergency (ER) | payer MEDICAID ==
[~2021-11-08] VITALS: Ht 167.7 cm; Wt 100.7 kg
[~2021-11-08 01:42] MED LIST changes: +FERR-84 PO
[2021-11-08 01:47] VITALS: BP 124/79
[2021-11-08] MEDS ORDERED: CIPR7.5D6 (01:52)
[2021-11-08] MEDS ORDERED: IBUPROFEN 800 MG (MOTRIN) TAB PO ONE (02:00)
[2021-11-08] MEDS ORDERED: NF-CIPDEC OT (02:05)
--- NOTE | 2021-11-08 02:05 | ED EENT ---
History of Present Illness General Chief Complaint: Ear Problems Stated Complaint: HAD A SPIDER IN L EAR,TROUBLE HEARING FROM L EAR Nursing Triage Note: reports spider in left ear removed 11/07/21. c/o loss of hearing/pain in left ear tonight. Source: patient Exam Limitations: no limitations History of Present Illness Date Seen by Provider: Nov 08, 2021 Time Seen by Provider: 01:44 Initial Comments Patient to the ER by private conveyance with chief complaint she is having some increasing pain in her left ear. Yesterday she had a spider flushed out of her left ear at the clinic. She was apparently given a prescription for antibiotics topically but did not collect them. She has not anything for pain. Allergies and Home Medications Allergies Coded Allergies: MATTIEANo Known Allergies (Verified Allergy, Unknown, 02/08/16) Patient Home Medication List Home Medication List Reviewed: Yes Ciprofloxacin HCl/Dexameth (Ciproflox-Dexameth Otic Susp) 0.3 %-0.1 % Drops.susp, (Reported) Entered as Reported by: LINDA MITCHELL on 11/08/21 0152 Last Action: New Order Discontinued Medications Ferrous Sulfate (Iron) 325 Mg (65 Mg Iron) Tablet, 325 MG PO DAILY, (Reported) Discontinued Reason: No Longer Taking Entered as Reported by: ROSE MARY FRENCH on 09/03/21 1139 Last Action: Discontinued Myo568/FA/Omega3/Dha/Fish Oil ( Gummies) 1 Each Tab.chew, 1 EACH PO DAILY, (Reported) Discontinued Reason: No Longer Taking Entered as Reported by: NICHOLAS HERNANDEZ on 10/17/17 1419 Last Action: Discontinued Review of Systems Review of Systems Constitutional: No chills, No diaphoresis Eyes: Denies Blindness, Denies Blurred Vision Ears: Denies Dizziness, Denies Pain Nose: denies clots, denies congestion Mouth: denies clots, denies loose teeth Throat: denies pain, denies swelling Past Clkixdp-Fcaysk-Ylxxiq Hx Patient Social History Tobacco Use?: No Substance use?: No Alcohol Use?: Yes Alcohol Frequency: Once in a while Pt feels they are or have been: No Immunizations Up To Date Tetanus Booster (TDap): Unknown PED Vaccines UTD: No First/Initial COVID19 Vaccinat: none Seasonal Allergies Seasonal Allergies: Yes Past Medical History Surgery/Hospitalization HX: dental, cholecystectomy, nasal sx. ch back pain, anxiety, depression Surgeries: Yes (tear duct surgery) Eye Surgery, Gallbladder Respiratory: No Cardiac: No Neurological: No Last Menstrual Period: Nov 06, 2021 Reproductive Disorders: Yes Female Reproductive Disorders: Ovarian Cyst Sexually Transmitted Disease: Yes (Hx of chlamydia ) HIV/AIDS: No Genitourinary: No Gastrointestinal: No Musculoskeletal: Yes Chronic Back Pain Endocrine: No HEENT: No Cancer: No Psychosocial: Yes Anxiety, Depression Integumentary: No Blood Disorders: Yes (anemia ) Adverse Reaction/Blood Tranf: No Family Medical History Asthma 19 MOTHER FH: sleep apnea 19 FATHER Hypertension 19 FATHER No Pertinent Family Hx Physical Exam Vital Signs Vital Signs - First Documented 11/08/21 01:47 Temp 36.4 Pulse 77 Resp 14 B/P (MAP) 124/79 (94) Pulse Ox 98 O2 Delivery Room Air Height, Weight, BMI Height: 5'6.50" Weight: 232lbs. 0.6oz. 105.445900kp; 35.00 BMI Method:Stated General Appearance: WD/WN, no apparent distress Eyes: bilateral eye normal inspection, bilateral eye PERRL, bilateral eye EOMI Ears: right ear canal normal; left ear other (Left ear canal is inflamed, erythematous and mildly swollen. No purulence or mucopurulence seen. TM has landmarks seen and mild injection); bilateral ear auricle normal, bilateral ear TM normal Progress/Results/Core Measures Results/Orders My Orders Orders - SU FARRAR Ibuprofen Tablet (Motrin Tablet) (11/08/21 02:00) Vital Signs/I&O 11/08/21 01:47 Temp 36.4 Pulse 77 Resp 14 B/P (MAP) 124/79 (94) Pulse Ox 98 O2 Delivery Room Air Blood Pressure Mean: 94 Progress Progress Note : Time: 02:03 Progress Note We will put the patient on Ciprodex and sent it to [facility] since about the care is not open Tuesday. Departure Impression Primary Impression: Otitis externa of left ear Qualified Codes: H60.392 - Other infective otitis externa, left ear Disposition: 01 HOME, SELF-CARE Condition: Stable Departure-Patient Inst. Decision time for Depature: 02:04 Referrals: LOVE WOOD MD (PCP/Family) Primary Care Physician Patient Instructions: Outer Ear Infection (DC) Add. Discharge Instructions: 3 drops of Ciprodex in your left ear twice a day for 7 days. Should expect some improvement in 3 to 4 days. All discharge instructions reviewed with patient and/or family. Voiced understanding. Scripts Ciprofloxacin HCl/Dexameth (Ciprodex Otic Suspension) 0.3 %-0.1 % Soln 3 DROPS OT BID for 7 Days, #1 EA 0 Refills Prov: SU FARRAR 11/08/21 SU FARRAR Nov 08, 2021 02:05
== END 2021-11-08 02:20 | disposition home or self-care (01) ==
LOC: EDUNIT# 01:42 → ER 01:45
DX: H60.92 Unspecified otitis externa, left ear (principal); Z28.310 Unvaccinated for COVID-19
CPT/HCPCS: 99283

== ENCOUNTER 2021-11-10 16:26 | Emergency (ER) | payer MEDICAID ==
[~2021-11-10] VITALS: Ht 167.7 cm; Wt 100.2 kg
[~2021-11-10 16:26] MED LIST changes: +CIPR7.5D6; +NF-CIPDEC OT
--- NOTE | 2021-11-10 17:16 | ED General ---
General Chief Complaint: Cough/Cold/Flu Symptoms Stated Complaint: HEADACHE, FEVER Nursing Triage Note: PT TO RM 10 BY WITH CC OF CHILLS, BODYACHES, SOA, CONTI, FEVER, N AND "SWOLLEN THROAT" SINCE LAST PM. PT A&OX4 Source of Information: Patient Exam Limitations: No Limitations (JADIEL GIRALDO MD) History of Present Illness Date Seen by Provider: Nov 10, 2021 Time Seen by Provider: 17:00 Initial Comments Patient is a 26-year-old female who presents to the emergency room today with a chief complaint of body aches, fevers and chills, feeling short of breath, headache, sore throat, left ear pain. She is not COVID vaccinated. She has recent past medical history of having an insect lodged in her left ear on Tuesday. She went to urgent care where they were able to flush it out. Since that time she has had increasing left ear pain/fullness. She has had 2 subsequent visits to the clinic as well as to the ER. She was prescribed some antibiotic drops but she states she does not believe those are helping. She has developed all the above-stated symptoms since the foreign body in the ear. She is not diabetic. She does not smoke. She denies dysuria, urgency or frequency. She has had some nausea this afternoon. Last dose of 800 mg of ibuprofen was approximately 6 hours ago. All other review of systems reviewed and negative except as stated Timing/Duration: 2-3 Days Severity: Moderate Associated Systoms: Fever/Chills, Headaches, Loss of Appetite, Malaise, Nausea/Vomiting, Shortness of Air, Weakness (JADIEL GIRALDO MD) Allergies and Home Medications Allergies Coded Allergies: NKANo Known Allergies (Verified Allergy, Unknown, 02/08/16) Patient Home Medication List Home Medication List Reviewed: Yes (JADIEL GIRALDO MD) Ciprofloxacin HCl/Dexameth (Ciproflox-Dexameth Otic Susp) 0.3 %-0.1 % Drops.susp, (Reported) Entered as Reported by: LINDA MITCHELL on 11/08/21 015 Ciprofloxacin HCl/Dexameth (Ciprodex Otic Suspension) 0.3 %-0.1 % Soln, 3 DROPS OT BID Prescribed by: SU FARRAR on 11/08/21 020 Discontinued Medications Ferrous Sulfate (Iron) 325 Mg (65 Mg Iron) Tablet, 325 MG PO DAILY, (Reported) Discontinued Reason: No Longer Taking Entered as Reported by: ROSE MARY FRENCH on 09/03/21 1139 Ktr989/FA/Omega3/Dha/Fish Oil ( Gummies) 1 Each Tab.chew, 1 EACH PO DAILY, (Reported) Discontinued Reason: No Longer Taking Entered as Reported by: NICHOLAS HERNANDEZ on 10/17/17 1419 Review of Systems Review of Systems Constitutional: see HPI EENTM: ear pain (left), throat pain Respiratory: short of breath Cardiovascular: chest pain (chest discomfort) Gastrointestinal: loss of appetite, nausea Genitourinary: no symptoms reported Musculoskeletal: muscle cramps Skin: no symptoms reported Psychiatric/Neurological: Headache (JADIEL GIRALDO MD) Past Tmyvobk-Lwioxq-Brwbwh Hx Patient Social History Tobacco Use?: No Substance use?: No Alcohol Use?: Yes Alcohol Frequency: Once in a while Pt feels they are or have been: No (JADIEL GIRALDO MD) Immunizations Up To Date Tetanus Booster (TDap): Unknown PED Vaccines UTD: No First/Initial COVID19 Vaccinat: none Second COVID19 Vaccination Magnus: none Third COVID19 Vaccination Date: none (JADIEL GIRALDO MD) Seasonal Allergies Seasonal Allergies: Yes (JADIEL GIRALDO MD) Past Medical History Surgery/Hospitalization HX: dental, cholecystectomy, nasal sx. ch back pain, anxiety, depression Surgeries: Yes (tear duct surgery) Eye Surgery, Gallbladder Respiratory: No Cardiac: No Neurological: No Reproductive Disorders: Yes Female Reproductive Disorders: Ovarian Cyst Sexually Transmitted Disease: Yes (Hx of chlamydia ) HIV/AIDS: No Genitourinary: No Gastrointestinal: No Musculoskeletal: Yes Chronic Back Pain Endocrine: No HEENT: No Cancer: No Psychosocial: Yes Anxiety, Depression Integumentary: No Blood Disorders: Yes (anemia ) Adverse Reaction/Blood Tranf: No (JADIEL GIRALDO MD) Family Medical History Asthma 19 MOTHER FH: sleep apnea 19 FATHER Hypertension 19 FATHER No Pertinent Family Hx (JADIEL GIRALDO MD) Physical Exam Vital Signs Vital Signs - First Documented 11/10/21 16:42 Temp 39.6 Pulse 130 Resp 16 B/P (MAP) 118/82 (94) Pulse Ox 98 O2 Delivery Room Air (IRVIN COLLIER DO) Vital Signs Capillary Refill : Less Than 3 Seconds (JADIEL GIRALDO MD) Height, Weight, BMI Height: 5'6.50" Weight: 232lbs. 0.6oz. 105.019878sv; 35.00 BMI Method:Stated General Appearance: No Apparent Distress, WD/WN Eyes: Bilateral Eye Normal Inspection, Bilateral Eye PERRL, Bilateral Eye EOMI HEENT: PERRL/EOMI, Moist Mucous Membranes, TM Abnormal (L), TM Abnormal (R) (Bilateral effusions, slight erythema to the left ear canal, purulent effusion noted at the superior aspect of the left TM), Tonsillar Exudate (Tonsillar erythema and mucopurulence noted) Neck: Normal Inspection, Supple Respiratory: Lungs Clear, Normal Breath Sounds, No Accessory Muscle Use, No Re spiratory Distress Cardiovascular: Regular Rate, Rhythm (Tachycardic in the 150s), Normal Peripheral Pulses, Tachycardia Gastrointestinal: Soft, Tenderness (Mild diffuse tenderness) Extremity: Normal Capillary Refill, Normal Inspection, Normal Range of Motion, Non Tender, No Calf Tenderness Neurologic/Psychiatric: Alert, Oriented x3, No Motor/Sensory Deficits, Normal 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, 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 Norm as Tested Skin: Normal Color, Warm/Dry (JADIEL GIRALDO MD) Focused Exam Sepsis Stage: Sepsis Possible Source: Other (COVID-19) Lactate Level 11/10/21 17:30: Lactic Acid Level 1.28 (IRVIN COLLIER DO) Time of Focused Exam: 18:30 Respiratory: Normal Breath Sounds, No Accessory Muscle Use, No Respiratory Distress Cardiovascular: No Edema, No Murmur, Tachycardia Capillary Refill: Less Than 3 Seconds Skin: normal color, warm/dry Lactic Acid Level Laboratory Tests Test 11/10/21 17:30 Lactic Acid Level 1.28 MMOL/L (0.50-2.00) (IRVIN COLLIER DO) Within 3hrs of presentation: Admin fluids, Admin ABX, Blood cultures prior to ABX's, Focus exam, Lactate level (IRVIN COLLIER DO) Progress/Results/Core Measures Suspected Sepsis SIRS Temperature: Pulse: 130 Respiratory Rate: 16 Laboratory Tests 11/10/21 17:30: White Blood Count 11.7H Blood Pressure 118 /82 Mean: 94 11/10/21 17:30: Laboratory Tests 11/10/21 17:30: Platelet Count 279 (JADIEL GIRALDO MD) Results/Orders Lab Results Laboratory Tests Test 11/10/21 17:26 11/10/21 17:30 11/10/21 18:08 Range/Units SARS-CoV-2 RNA (RT-PCR) Detected H Not Detecte Group A Streptococcus Screen NEGATIVE NEGATIVE White Blood Count 11.7 H 4.3-11.0 10^3/uL Red Blood Count 5.11 3.80-5.11 10^6/uL Hemoglobin 12.7 11.5-16.0 g/dL Hematocrit 41 35-52 % Mean Corpuscular Volume 80 80-99 fL Mean Corpuscular Hemoglobin 25 25-34 pg Mean Corpuscular Hemoglobin Concent 31 L 32-36 g/dL Red Cell Distribution Width 15.9 H 10.0-14.5 % Platelet Count 279 130-400 10^3/uL Mean Platelet Volume 10.0 9.0-12.2 fL Immature Granulocyte % (Auto) 1 % Neutrophils (%) (Auto) 87 H 42-75 % Lymphocytes (%) (Auto) 7 L 12-44 % Monocytes (%) (Auto) 4 0-12 % Eosinophils (%) (Auto) 0 0-10 % Basophils (%) (Auto) 0 0-10 % Neutrophils # (Auto) 10.2 H 1.8-7.8 10^3/uL Lymphocytes # (Auto) 0.8 L 1.0-4.0 10^3/uL Monocytes # (Auto) 0.5 0.0-1.0 10^3/uL Eosinophils # (Auto) 0.0 0.0-0.3 10^3/uL Basophils # (Auto) 0.0 0.0-0.1 10^3/uL Immature Granulocyte # (Auto) 0.1 0.0-0.1 10^3/uL Neutrophils % (Manual) 88 % Lymphocytes % (Manual) 9 % Monocytes % (Manual) 3 % Microcytosis SLIGHT Prothrombin Time 14.3 12.2-14.7 SEC INR Comment 1.1 0.8-1.4 Activated Partial Thromboplast Time 30 24-35 SEC Sodium Level 140 135-145 MMOL/L Potassium Level 3.4 L 3.6-5.0 MMOL/L Chloride Level 104 98-107 MMOL/L Carbon Dioxide Level 25 21-32 MMOL/L Anion Gap 11 5-14 MMOL/L Blood Urea Nitrogen 7 7-18 MG/DL Creatinine 0.83 0.60-1.30 MG/DL Estimat Glomerular Filtration Rate 100 BUN/Creatinine Ratio 8 Glucose Level 103 70-105 MG/DL Lactic Acid Level 1.28 0.50-2.00 MMOL/L Calcium Level 9.5 8.5-10.1 MG/DL Corrected Calcium 9.2 8.5-10.1 MG/DL Total Bilirubin 0.6 0.1-1.0 MG/DL Aspartate Amino Transf (AST/SGOT) 18 5-34 U/L Alanine Aminotransferase (ALT/SGPT) 24 0-55 U/L Alkaline Phosphatase 111 40-136 U/L Total Protein 8.3 H 6.4-8.2 GM/DL Albumin 4.4 3.2-4.5 GM/DL Serum Test, Qualitative NEGATIVE NEGATIVE Monoscreen NEGATIVE NEGATIVE (IRVIN COLLIER DO) My Orders Orders - IRVIN COLLIER DO Urine Bedside (11/10/21 18:14) (IRVIN COLLIER DO) Medications Given in ED Current Medications Medications Dose Ordered Sig/Chucky Route Start Time Stop Time Status Last Admin Dose Admin Acetaminophen 1,000 mg ONCE ONCE PO 11/10/21 17:30 11/10/21 17:31 DC 11/10/21 17:34 1,000 MG Ceftriaxone Sodium/Dextrose 50 ml @ 100 mls/hr ONCE ONCE IV 11/10/21 17:30 11/10/21 17:59 DC 11/10/21 17:34 100 MLS/HR Ketorolac Tromethamine 15 mg ONCE ONCE IVP 11/10/21 17:30 11/10/21 17:31 DC 11/10/21 17:37 15 MG Ondansetron HCl 8 mg ONCE ONCE IVP 11/10/21 17:30 11/10/21 17:31 DC 11/10/21 17:39 8 MG (IRVIN COLLIER DO) Vital Signs/I&O 11/10/21 11/10/21 16:42 17:34 Temp 39.6 39.3 Pulse 130 Resp 16 B/P (MAP) 118/82 (94) Pulse Ox 98 O2 Delivery Room Air (IRVIN COLLIER DO) Vital Signs/I&O Capillary Refill : Less Than 3 Seconds (JADIEL GIRALDO MD) Blood Pressure Mean: 94 Progress Note : Progress Note 1800--ASSUMED CARE FROM DR. GIRALDO, ALL STUDIES PENDING AT THIS TIME. NO DETERIORATION IN PT'S CONDITION DURING ER STAY HR DOWN, TEMP DOWN, NAUSEA GONE STATES SHE FEELS BETTER AT DISMISSAL DISCUSSED ANTICIPATED COURSE PT IS NOT AND REPORTS THAT NONE OF HER CHILDREN ARE ILL AT THIS TIME DISCUSSED IMPORTANCE OF QUARANTINE (IRVIN COLLIER DO) Diagnostic Imaging Comments CXR--PER RADIOLOGIST REPORT AT 1825 FINDINGS: The heart size is normal. The pulmonary vascularity is unremarkable. The lungs are clear. No infiltrate, effusion or pneumothorax is detected. IMPRESSION: No acute cardiopulmonary process is detected. Reviewed: Reviewed by Me (IRVIN COLLIER DO) Transfer of Care Transfer of Care Time: 17:53 Care transferred to: care passed to DR COLLIER at shift change with work-up pending (JADIEL GIRALDO MD) Departure Impression Primary Impression: COVID-19 virus infection Disposition: 01 HOME, SELF-CARE Condition: Improved Departure-Patient Inst. Decision time for Depature: 18:30 (IRVIN COLLIER DO) Referrals: LOVE WOOD MD (PCP/Family) Primary Care Physician Patient Instructions: COVID-19 ED, Preventing the Spread of an Infectious Disease Add. Discharge Instructions: LOS OF CLEAR LIQUIDS--WATER, BROTH, JELLO, GATORADE--DRINK ENOUGH SO YOU ARE URINATING EVERY 2-3 HOURS WHILE AWAKE BLAND DIET--NO SPICY, GREASY/HIGH FAT OR ACIDIC FOODS OR DRINKS TYLENOL 1 GRAM PLUS MOTRIN 800 MG 4 TIMES A DAY FOR PAIN OR FEVER OVER THE COUNTER MEDICATIONS FOR COUGH AND CONGESTION NEEDED FREQUENT SALT WATER GARGLES QUARANTINE FOR 10 DAYS FOLLOW UP WITH YOUR DR IN 3-4 DAYS IF NO BETTER, RETURN TO ER IF WORSE All discharge instructions reviewed with patient and/or family. Voiced understanding. Scripts Ondansetron (Ondansetron Odt) 4 Mg Tab.rapdis 4 MG PO Q4H for Nausea/Vomiting, #10 TAB Prov: IRVIN COLLIER DO 11/10/21 JADIEL GIRALDO MD Nov 10, 2021 17:16 IRVIN COLLIER DO Nov 10, 2021 18:25
[2021-11-10] MEDS ORDERED: ACETAMINOPHEN 500 MG TAB (TYLENOL) PO ONE (17:30)
[2021-11-10] MEDS ORDERED: KETOROLAC 30 MG/ML VIAL IVP ONE (17:30)
[2021-11-10] MEDS ORDERED: cefTRIAXone 1 GM PRE-MIX 50 ML IV ONE (17:30)
[2021-11-10] MEDS ORDERED: ONDANSETRON 4 MG/2 ML (SDV) Z0FRAN IVP ONE (17:30)
[2021-11-10] MEDS: NS IV 1000 ML 1,000 ML IV SCH ×2 (17:33→18:44)
[2021-11-10 17:46] LABS: BASOPHILS % (AUTO) 0 % (0-10); EOSINOPHILS % (AUTO) 0 % (0-10); HEMATOCRIT 41 % (35-52); HEMOGLOBIN 12.7 g/dL (11.5-16.0); LYMPHOCYTES # (AUTO) 0.8 10^3/uL (1.0-4.0); LYMPHOCYTES % (AUTO) 7 % (12-44); MEAN CORPUSCULAR HEMOGLOBIN 25 pg (25-34); MEAN CORPUSCULAR HGB CONC 31 g/dL (32-36); MEAN CORPUSCULAR VOLUME 80 fL (80-99); MONOCYTES # (AUTO) 0.5 10^3/uL (0.0-1.0); MONOCYTES % (AUTO) 4 % (0-12); NEUTROPHILS # (AUTO) 10.2 10^3/uL (1.8-7.8); NEUTROPHILS % (AUTO) 87 % (42-75); PLATELET COUNT 279 10^3/uL (130-400); WHITE BLOOD COUNT 11.7 10^3/uL (4.3-11.0)
[2021-11-10 18:00] LABS: ALBUMIN 4.4 GM/DL (3.2-4.5); POTASSIUM 3.4 MMOL/L (3.6-5.0)
[2021-11-10 18:01] LABS: CALCIUM 9.5 MG/DL (8.5-10.1)
[2021-11-10 18:02] LABS: INR 1.1 (0.8-1.4); PROTHROMBIN TIME PATIENT 14.3 SEC (12.2-14.7); TOTAL PROTEIN 8.3 GM/DL (6.4-8.2)
--- NOTE | 2021-11-10 18:02 | Diagnostic Imaging Report ---
INDICATION: Fever and tachycardia. TIME OF EXAM: 5:46 p.m. COMPARISON: Correlation is made with prior chest 05/14/2019. FINDINGS: The heart size is normal. The pulmonary vascularity is unremarkable. The lungs are clear. No infiltrate, effusion or pneumothorax is detected. IMPRESSION: No acute cardiopulmonary process is detected. Dictated by: Dictated on workstation # [id number]
[2021-11-10 18:04] LABS: BILIRUBIN,TOTAL 0.6 MG/DL (0.1-1.0)
[2021-11-10 18:06] LABS: CREATININE SERUM 0.83 MG/DL (0.60-1.30)
[2021-11-10 18:14] LABS: LYMPHOCYTES % (MANUAL) 9 %; MICROCYTOSIS SLIGHT; MONOCYTES % (MANUAL) 3 %; NEUTROPHILS % (MANUAL) 88 %
[2021-11-10 18:35] LABS: BILIRUBIN,URINE NEGATIVE (NEGATIVE); CLARITY,URINE CLEAR; COLOR,URINE YELLOW; GLUCOSE, URINE (UA) NEGATIVE (NEGATIVE); KETONES,URINE NEGATIVE (NEGATIVE); NITRITE,URINE NEGATIVE (NEGATIVE); PROTEIN,URINE NEGATIVE (NEGATIVE)
[2021-11-10 18:36] LABS: BACTERIA,URINE FEW /HPF; LEUKOCYTE ESTERASE ,URINE NEGATIVE (NEGATIVE)
[2021-11-10] MEDS ORDERED: ONDA4TAB11 PO (18:40)
[2021-11-10 19:22] VITALS: BP 93/50
== END 2021-11-10 19:27 | disposition home or self-care (01) ==
LOC: EDUNIT# 16:26 → ER 16:29
DX: U07.1 COVID-19 (principal); Z28.310 Unvaccinated for COVID-19
CPT/HCPCS: 36415; 71045; 80053; 81000; 83605; 84703; 85007; 85027; 85610; 85730; 86308; 87040; 87088; 87430; 87636